=== PATIENT | female | born 1990 | race Caucasian/White ===

== ENCOUNTER 2016-11-29 07:28 | Emergency (ER) | payer BC, OTHER ==
[~2016-11-29] VITALS: Ht 167.6 cm; Wt 86.2 kg
[~2016-11-29 07:28] MED LIST: CITA40TA12 PO; HYDR1TAB10 PO; LORA2TAB PO; METH10TA6 PO; METO50TA2 PO; NORG1TAB34 PO; OXYC-250 PO; PROP40TA PO
[2016-11-29] MEDS ORDERED: ONDANSETRON PF 4 MG/2 ML VIAL. IV ONE (08:15)
[2016-11-29] MEDS ORDERED: CLONIDINE HCL 0.1 MG TABLET PO ONE (08:15)
[2016-11-29 08:24] LABS: CREATININE 0.8 mg/dL (0.6-1.0); POTASSIUM 3.3 mmol/L (3.5-5.1)
[2016-11-29 08:35] LABS: BASO # 0.1 x10^3/uL (0.0-0.2); BASO % 1 % (0-3); EOS % 1 % (0-3); HEMATOCRIT 48.7 % (36.0-47.0); HEMOGLOBIN 16.9 g/dL (12.0-15.5); LYMPH # 1.5 x10^3/uL (1.0-4.8); LYMPH % 16 % (24-48); MEAN CORPUSCULAR HEMOGLOBIN 34 pg (25-35); MEAN CORPUSCULAR HGB CONC 35 g/dL (31-37); MEAN CORPUSCULAR VOLUME 99 fL (79-100); MONO % 5 % (0-9); NEUT % 77 % (31-73); PLATELET COUNT 314 x10^3/uL (140-400); RED BLOOD COUNT 4.93 x10^6/uL (3.50-5.40); WHITE BLOOD COUNT 9.5 x10^3/uL (4.0-11.0)
[2016-11-29 08:46] LABS: BARBITURATES NEG (NEG); BENZODIAZEPINES POS (NEG); CANNABINOIDS POS (NEG); COCAINE NEG (NEG); METHADONE NEG (NEG); OPIATES POS (NEG); PHENCYCLIDINE NEG (NEG)
[2016-11-29 08:48] LABS: ETHANOL, URINE POS (NEG)
--- NOTE | 2016-11-29 09:04 | PHYS DOC ---
Past Medical History Past Medical History: Anxiety, Depression, Hyperthyroid, Other Additional Past Medical Histor: ALCOHOL ABUSE, SUBSTANCE ABUSE Past Surgical History: Other Additional Past Surgical Histo: ATTEMPTED THYROID REMOVAL Alcohol Use: Heavy Drug Use: Benzodiazepine, Cocaine, Marijuana, Opiates Adult General Chief Complaint Chief Complaint: SUBSTANCE ABUSE HPI HPI Patient is a 26 year old female who presents with who mother seeking drug detox placement. She has recently been decreasing her narcotic and benzodiazepine intake to try to wean herself. She has also been trying to quit multiple street drugs. She has discussed this with her psychiatrist as well. She states this has created anxiety, nausea and vomiting, and extreme general discomfort. She denies bloody or bilious emesis, dysuria, diarrhea, headache, vision changes, numbness, tingling, weakness, chest pain, dyspnea. Review of Systems Review of Systems Constitutional: Denies fever or chills [] Eyes: Denies change in visual acuity, redness, or eye pain [] HENT: Denies nasal congestion or sore throat [] Respiratory: Denies cough or shortness of breath [] Cardiovascular: No additional information not addressed in HPI [] GI: Denies bloody stools or diarrhea [] : Denies dysuria or hematuria [] Musculoskeletal: Denies back pain or joint pain [] Integument: Denies rash or skin lesions [] Neurologic: Denies headache, focal weakness or sensory changes [] Endocrine: Denies polyuria or polydipsia [] Current Medications Current Medications Current Medications Medications (Trade) Dose Ordered Sig/Brad Start Time Stop Time Status Last Admin Dose Admin Clonidine HCl (Catapres) 0.1 mg 1X ONCE 11/29/16 08:15 11/29/16 08:16 DC 11/29/16 08:24 0.1 MG Ondansetron HCl (Zofran) 4 mg 1X ONCE 11/29/16 08:15 11/29/16 08:16 DC 11/29/16 08:24 4 MG Allergies Allergies Allergies Coded Allergies Type Severity Reaction Last Updated Verified No Known Drug Allergies 12/07/15 No Physical Exam Physical Exam Constitutional: Well developed, well nourished, no acute distress, non-toxic appearance. [] HENT: Normocephalic, atraumatic, bilateral external ears normal, oropharynx moist, no oral exudates, nose normal. [] Eyes: PERRLA, EOMI. [] Neck: Normal range of motion, supple. [] Cardiovascular:Heart rate regular rhythm [] Lungs & Thorax: Bilateral breath sounds clear to auscultation [] Abdomen: Bowel sounds normal, soft, no tenderness. [] Skin: Warm, dry, no erythema, no rash. [] Back: Normal range of motion. [] Extremities: No tenderness, ROM intact, no edema. [] Neurologic: Alert and oriented X 3, normal motor function, normal sensory function, no focal deficits noted, cranial nerves II through XII intact. [] Psychologic: Affect tearful, judgement normal, mood normal. [] Current Patient Data Vital Signs Vital Signs Date Time Temp Pulse Resp B/P Pulse Ox O2 Delivery O2 Flow Rate FiO2 11/29/16 08:24 85 138/89 11/29/16 07:50 97.4 22 100 Room Air 97.4 Lab Values Laboratory Tests Test 11/29/16 07:09 11/29/16 07:55 11/29/16 08:08 POC Urine HCG, Qualitative Hcg negative (Negative) Urine Opiates Screen Pos (NEG) Urine Methadone Screen Neg (NEG) Urine Barbiturates Neg (NEG) Urine Phencyclidine Screen Neg (NEG) Urine Amphetamine/Methamphetamine Pos (NEG) Urine Benzodiazepines Screen Pos (NEG) Urine Cocaine Screen Neg (NEG) Urine Cannabinoids Screen Pos (NEG) Urine Ethyl Alcohol Pos (NEG) White Blood Count 9.5x10^3/uL (4.0-11.0) Red Blood Count 4.93x10^6/uL (3.50-5.40) Hemoglobin 16.9g/dL (12.0-15.5) H Hematocrit 48.7% (36.0-47.0) H Mean Corpuscular Volume 99fL (79-100) Mean Corpuscular Hemoglobin 34pg (25-35) Mean Corpuscular Hemoglobin Concent 35g/dL (31-37) Red Cell Distribution Width 15.0% (11.5-14.5) H Platelet Count 314x10^3/uL (140-400) Neutrophils (%) (Auto) 77% (31-73) H Lymphocytes (%) (Auto) 16% (24-48) L Monocytes (%) (Auto) 5% (0-9) Eosinophils (%) (Auto) 1% (0-3) Basophils (%) (Auto) 1% (0-3) Neutrophils # (Auto) 7.4x10^3uL (1.8-7.7) Lymphocytes # (Auto) 1.5x10^3/uL (1.0-4.8) Monocytes # (Auto) 0.5x10^3/uL (0.0-1.1) Eosinophils # (Auto) 0.1x10^3/uL (0.0-0.7) Basophils # (Auto) 0.1x10^3/uL (0.0-0.2) Sodium Level 138mmol/L (136-145) Potassium Level 3.3mmol/L (3.5-5.1) L Chloride Level 100mmol/L (98-107) Carbon Dioxide Level 16mmol/L (21-32) L Anion Gap 22 (6-14) H Blood Urea Nitrogen 11mg/dL (7-20) Creatinine 0.8mg/dL (0.6-1.0) Estimated GFR (Cockcroft-Gault) 86.0 Glucose Level 78mg/dL (70-99) Calcium Level 10.0mg/dL (8.5-10.1) Ethyl Alcohol Level 15mg/dL (0-10) H Laboratory Tests 11/29/16 08:08 Laboratory Tests 11/29/16 08:08 Course & Med Decision Making Course & Med Decision Making Pertinent Labs and Imaging studies reviewed. (See chart for details) Laboratory evaluation reflects polysubstance abuse, but is otherwise largely unremarkable. She is feeling somewhat better after medications here. PAT tour sales representative saw her to assist detox placement. She was accepted to an inpatient detox facility, however, she changed her mind and does not want inpatient treatment at this time. Resources were provided by PAT tour sales representative. Will give clonidine to help withdrawal symptoms. Return precautions given. She understands and agrees with plan. Dragon Disclaimer Dragon Disclaimer This electronic medical record was generated, in whole or in part, using a voice recognition dictation system. Departure Departure Impression: Primary Impression: Multiple substance abuse Additional Impression: Nausea and vomiting Disposition: HOME, SELF-CARE (to Drug Rehab) Condition: STABLE Referrals: UNKNOWN PCP NAME (PCP) Patient Instructions: Narcotic Withdrawal-Brief Additional Instructions: Take clonidine as prescribed to help with withdrawal symptoms. Follow up with substance abuse facility and your psychiatrist. Return for any concerns. Scripts Clonidine Hcl 0.1 Mg Tablet0.1 Mg PO BID #6 TAB Prov:Nydia CISNEROS MD 11/29/16 Problem Qualifiers Additional Impression: Nausea and vomiting Vomiting type: unspecified Vomiting Intractability: non-intractable Qualified Code: R11.2 - Nausea with vomiting, unspecified Nydia CISNEROS MD Nov 29, 2016 09:04
[2016-11-29] MEDS ORDERED: CLON0.1T PO (10:28)
[2016-11-29 10:30] VITALS: BP 111/75
== END 2016-11-29 10:42 | disposition home or self-care (01) ==
LOC: ER 07:28
DX: F19.10 Other psychoactive substance abuse, uncomplicated (principal); R11.2 Nausea with vomiting, unspecified; F41.9 Anxiety disorder, unspecified; F32.9 Major depressive disorder, single episode, unspecified; E05.90 Thyrotoxicosis, unspecified without thyrotoxic crisis or storm; F13.10 Sedative, hypnotic or anxiolytic abuse, uncomplicated; F14.10 Cocaine abuse, uncomplicated; F12.10 Cannabis abuse, uncomplicated; F11.10 Opioid abuse, uncomplicated
CPT/HCPCS: 36415; 80048; 80305; 80320; 81025; 85027; 96374; 99284; J2405; G0480; G0481

== ENCOUNTER 2017-02-26 10:11 | Emergency (ER) | payer BC ==
[~2017-02-26] VITALS: Ht 167.6 cm; Wt 74.8 kg
[~2017-02-26 10:11] MED LIST changes: +CLON0.1T PO; +METH-364 PO; -METH10TA6 PO; -OXYC-250 PO; +OXYC-328 PO
[2017-02-26 10:26] VITALS: BP 132/84
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
[2017-02-26 10:59] LABS: BILIRUBIN,URINE NEGATIVE (NEG); GLUCOSE,URINE NEGATIVE (NEG); NITRITE,URINE NEGATIVE (NEG); PROTEIN,URINE 100 mg/dL (NEG-TRACE); UROBILINOGEN,URINE 0.2 mg/dL (0.2 mg/dL)
[2017-02-26] MEDS ORDERED: CONTRAST GIVEN MC PRN (11:00)
[2017-02-26] MEDS ORDERED: IOHEXOL 300 MG/ML 75 ML VIAL IV ONE (11:00)
[2017-02-26 11:22] LABS: BACTERIA,URINE FEW /HPF (0-FEW); RBC,URINE 0 /HPF (0-2); SQUAMOUS EPITHELIAL CELL,UR MOD /LPF
[2017-02-26] MEDS ORDERED: ACETAMINOPHEN 325 MG TABLET. PO ONE (11:30)
--- NOTE | 2017-02-26 12:08 | RAD ---
Indication fall, pain. AP and lateral views of the right forearm were obtained. No bony abnormality is seen
--- NOTE | 2017-02-26 12:11 | RAD ---
Indication fall. Pain. AP and lateral views of both femurs were obtained. No acute or significant bony finding is seen involving either femur
--- NOTE | 2017-02-26 12:17 | RAD ---
Indication fall. Pain. AP and lateral views of both lower legs were obtained. Views of the right tibia and fibula appear normal. No bony abnormality is seen. Similarly views of the left tibia and fibula also appear normal. IMPRESSION: Normal plain films of both lower legs
--- NOTE | 2017-02-26 12:21 | RAD ---
Indication fall, pain. An AP view of the chest was obtained as well as films targeted to the left ribs. The heart, pulmonary vessels and mediastinum appear normal. The lungs are clear. There is no pleural fluid or pneumothorax. No acute finding is apparent. Films targeted to left ribs appear unremarkable. IMPRESSION: No acute finding in the chest. Normal plain films left ribs
--- NOTE | 2017-02-26 12:27 | RAD ---
INDICATION: Status post fall COMPARISON: None. TECHNIQUE: Axial CT images were obtained through the abdomen and pelvis with intravenous contrast. Coronal reformations were processed. FINDINGS: Abdomen: Chest Base: Partially imaged without gross abnormality. Vessels: No abdominal aortic aneurysm. Liver/Biliary: Low-attenuation throughout liver. Low attenuation adjacent to falciform ligament, commonly from focal fat. Pancreas: No gross abnormality. Spleen: Normal. Kidneys/Adrenal: No hydronephrosis. GI: No free air. No bowel dilation to suggest obstruction. Appendix measures up to about 8 mm but a large portion of this measurement is from intraluminal content. No definite adjacent inflammation Pelvis: Bladder: Largely decompressed. Degenerative changes the spine including T12 where there is sclerosis adjacent to the endplate with osteophyte formation IMPRESSION: 1. No definite solid organ or vascular injury. 2. Low attenuation of liver. Nonspecific but can be seen with fatty infiltration. PQRS Compliance Statement: One or more of the following individualized dose reduction techniques were utilized for this examination: 1. Automated exposure control 2. Adjustment of the mA and/or kV according to patient size 3. Use of iterative reconstruction technique
--- NOTE | 2017-02-26 12:31 | RAD ---
Indication fall, injury and pain. AP oblique and lateral views of the left elbow were obtained. There is no significant joint fluid. A bony abnormality is not seen
--- NOTE | 2017-02-26 12:31 | RAD ---
Indication fall, injury, pain. Closed head injury. Facial pain. Suspect fracture. The head and maxillofacial structures were evaluated. Images of the facial bones were reformatted in the coronal and sagittal planes. No prior imaging of the head is available. CT head: Findings. No acute calvarial finding is seen. The visualized paranasal sinuses appear unremarkable. No subdural or epidural hematoma is seen. There is no mass or midline shift. No hemorrhage is seen. No acute finding is apparent. Maxillofacial CT: Findings. No significant soft tissue finding is seen. There is some slight mucosal thickening in the right maxillary sinus. Mild sinusitis is not excluded. The mandible appears unremarkable. Zygomatic arches appear normal. The nasal bone appears unremarkable. The medial and lateral wright of the orbits appear normal and no maxillary fracture is seen. IMPRESSION: Negative CT facial bones for fracture. No acute intracranial finding seen. Mild mucosal thickening in the right maxillary sinus. Mild sinusitis is not excluded PQRS Compliance Statement: One or more of the following individualized dose reduction techniques were utilized for this examination: 1. Automated exposure control 2. Adjustment of the mA and/or kV according to patient size 3. Use of iterative reconstruction technique
== END 2017-02-26 13:07 | disposition home or self-care (01) ==
LOC: ER 10:11
DX: S09.8XXA Other specified injuries of head, initial encounter (principal); S00.11XA Contusion of right eyelid and periocular area, initial encounter; S50.11XA Contusion of right forearm, initial encounter; S30.1XXA Contusion of abdominal wall, initial encounter; S80.12XA Contusion of left lower leg, initial encounter; S80.11XA Contusion of right lower leg, initial encounter; S50.312A Abrasion of left elbow, initial encounter; E03.9 Hypothyroidism, unspecified; F12.10 Cannabis abuse, uncomplicated; F11.10 Opioid abuse, uncomplicated; F14.10 Cocaine abuse, uncomplicated; F19.10 Other psychoactive substance abuse, uncomplicated; F10.10 Alcohol abuse, uncomplicated; W18.09XA Striking against other object with subsequent fall, initial encounter; Y93.89 Activity, other specified; Y99.8 Other external cause status; Y92.89 Other specified places as the place of occurrence of the external cause
CPT/HCPCS: 70450; 70486; 71101; 73080; 73090; 73590; 74177; 80047; 81001; 81025; 87086; 99285; Q9967

== ENCOUNTER 2017-03-03 07:34 | Emergency (ER) | payer BC ==
[~2017-03-03] VITALS: Ht 167.6 cm; Wt 74.8 kg
[2017-03-03] MEDS ORDERED: IV NORMAL SALINE 1000ML BAG 1,000 ML IV SCH (08:05)
[2017-03-03] MEDS ORDERED: ONDANSETRON PF 4 MG/2 ML VIAL. IV ONE (08:15)
[2017-03-03] MEDS ORDERED: ACETAMINOPHEN 500 MG TABLET PO ONE (08:15)
[2017-03-03 08:32] LABS: BASO % 0 % (0-3); EOS % 1 % (0-3); HEMATOCRIT 44.4 % (36.0-47.0); HEMOGLOBIN 15.4 g/dL (12.0-15.5); LYMPH # 0.7 x10^3/uL (1.0-4.8); LYMPH % 9 % (24-48); MEAN CORPUSCULAR HEMOGLOBIN 36 pg (25-35); MEAN CORPUSCULAR HGB CONC 35 g/dL (31-37); MEAN CORPUSCULAR VOLUME 105 fL (79-100); MONO % 6 % (0-9); NEUT % 85 % (31-73); PLATELET COUNT 174 x10^3/uL (140-400); RED BLOOD COUNT 4.24 x10^6/uL (3.50-5.40); RED CELL DISTRIBUTION WIDTH 15.1 % (11.5-14.5); WHITE BLOOD COUNT 8.6 x10^3/uL (4.0-11.0)
[2017-03-03 08:38] LABS: CALCIUM 8.4 mg/dL (8.5-10.1); CREATININE 0.7 mg/dL (0.6-1.0); GFR 100.4; POTASSIUM 3.4 mmol/L (3.5-5.1)
[2017-03-03] MEDS ORDERED: IOHEXOL 300 MG/ML 75 ML VIAL IV ONE (08:45)
[2017-03-03] MEDS ORDERED: DIPHTH,PERTUSS(ACELL),TET TOX 0.5 ML DISP.SYRIN. VAX IM ONE (08:45)
--- NOTE | 2017-03-03 08:47 | ED.ADGEN ---
Past Medical History Past Medical History: Anxiety, Depression, Hyperthyroid Additional Past Medical Histor: ALCOHOL ABUSE, SUBSTANCE ABUSE Past Surgical History: , Other Additional Past Surgical Histo: THYROID ABLASION Alcohol Use: Occasionally Drug Use: Marijuana Adult General Chief Complaint Chief Complaint: DENTAL PROBLEM HPI HPI Patient is a 26 year old woman, history of alcohol abuse, substance abuse, hypertension, tobacco abuse, thyroid ablation on Synthroid, who presents to the emergency department with a complaint of worsening dental pain with development of fever. Patient was seen by Dr. Braun an oral surgeon on Saturday, that time she had tooth #11 extracted, she states there was an existing dental infection at the time. Patient discharged home on antibiotics, pain medication. She states that initially the pain was consistent with previous placental procedures, however yesterday the pain became progressively worse. She states that she noted increased swelling and bruising of her left cheek. Patient states that she did attempt to contact the dental office but it was closed. She states she has been taking antibiotics as directed. Today she noted a fever at home, noted to have an oral temperature 100.2 in the emergency department, mildly tachycardic, complaining of severe pain. Denies any recent travel, any ingestions, states she is having bloody drainage from the area. States pain is severe. Patient is uncertain about her tetanus status. Review of Systems Review of Systems Constitutional: Denies fever or chills. [] Eyes: Denies change in visual acuity. [] HENT: Denies nasal congestion or sore throat. Left upper jaw pain radiating throughout the left side of the face. Respiratory: Denies cough or shortness of breath. [] Cardiovascular: Denies chest pain or edema. [] GI: Denies abdominal pain, nausea, vomiting, bloody stools or diarrhea. [] : Denies dysuria. [] Musculoskeletal: Denies back pain or joint pain. [] Integument: Denies rash. [] Neurologic: Denies headache, focal weakness or sensory changes. [] Endocrine: Denies polyuria or polydipsia. [] Lymphatic: Denies swollen glands. [] Psychiatric: Denies depression or anxiety. [] Current Medications Current Medications Current Medications Medications (Trade) Dose Ordered Sig/Brad Start Time Stop Time Status Last Admin Dose Admin Acetaminophen (Tylenol) 1,000 mg 1X ONCE 03/03/17 08:15 03/03/17 08:16 DC 03/03/17 08:55 1,000 MG Clindamycin HCl (Cleocin) 300 mg 1X ONCE 03/03/17 10:45 03/03/17 10:46 DC 03/03/17 10:45 300 MG Diphtheria/ Tetanus/Acell Pertussis (Boostrix) 0.5 ml ONCE ONCE 03/03/17 08:45 03/03/17 08:46 DC 03/03/17 09:14 0.5 ML Fentanyl Citrate (Fentanyl 2ml Vial) 25 mcg PRN Q15MIN PRN 03/03/17 08:15 03/03/17 10:51 DC 03/03/17 10:34 25 MCG Iohexol (Omnipaque 300 Mg/ml) 70 ml 1X ONCE 03/03/17 08:45 03/03/17 08:47 DC 03/03/17 09:16 70 ML Naproxen (Naprosyn) 500 mg 1X ONCE 03/03/17 10:45 03/03/17 10:46 DC 03/03/17 10:45 500 MG Ondansetron HCl (Zofran) 4 mg 1X ONCE 03/03/17 08:15 03/03/17 08:16 DC 03/03/17 08:53 4 MG Sodium Chloride 1,000 ml @ 1,000 mls/hr Q1H 03/03/17 08:05 03/03/17 09:04 DC 03/03/17 08:51 1,000 MLS/HR Allergies Allergies Allergies Coded Allergies Type Severity Reaction Last Updated Verified No Known Drug Allergies 12/07/15 No Physical Exam Physical Exam Constitutional: Well developed, well nourished, no acute distress, non-toxic appearance. [] HENT: Normocephalic, patient with bruising and swelling noted along the left upper cheek and tenderness in the maxillary sinus region, no eye involvement, no temporal tenderness, no ear involvement, patient noted to have purulent drainage, with blood and clot noted at the socket of tooth 11, with swelling along the gumline, and tenderness throughout the entire region, there is no tongue or other mucosal involvement, no brawny edema, oropharynx is clear and unremarkable in appearance, bilateral external ears normal, oropharynx moist, no oral exudates, nose normal. [] Eyes: PERRLA, EOMI, conjunctiva normal, no discharge. [] Neck: Normal range of motion, no tenderness, supple, no stridor. [] Cardiovascular:Heart rate regular rhythm, no murmur, S1, S2, rubs or gallops. [] Lungs & Thorax: Bilateral breath sounds clear to auscultation, no wheezing, rhonchi, rales. No chest wall crepitus or tenderness. [] Abdomen: Bowel sounds normal, soft, no tenderness, no masses, no pulsatile masses. [] Skin: Warm, dry, no erythema, no rash. [] Back: No tenderness, no CVA tenderness. [] Extremities: No tenderness, no cyanosis, no clubbing, ROM intact, no edema. [] Neurologic: Alert and oriented X 3, normal motor function, normal sensory function, no focal deficits noted. [] Psychologic: Affect normal, judgement normal, mood normal. [] Current Patient Data Vital Signs Vital Signs Date Time Temp Pulse Resp B/P (MAP) Pulse Ox O2 Delivery O2 Flow Rate FiO2 03/03/17 10:34 20 03/03/17 10:00 90 106/66 (79) 97 Room Air 03/03/17 07:50 100.2 100.2 Lab Values Laboratory Tests Test 03/03/17 07:34 03/03/17 08:10 POC Urine HCG, Qualitative Hcg negative (Negative) White Blood Count 8.6 x10^3/uL (4.0-11.0) Red Blood Count 4.24 x10^6/uL (3.50-5.40) Hemoglobin 15.4 g/dL (12.0-15.5) Hematocrit 44.4 % (36.0-47.0) Mean Corpuscular Volume 105 fL (79-100) H Mean Corpuscular Hemoglobin 36 pg (25-35) H Mean Corpuscular Hemoglobin Concent 35 g/dL (31-37) Red Cell Distribution Width 15.1 % (11.5-14.5) H Platelet Count 174 x10^3/uL (140-400) Neutrophils (%) (Auto) 85 % (31-73) H Lymphocytes (%) (Auto) 9 % (24-48) L Monocytes (%) (Auto) 6 % (0-9) Eosinophils (%) (Auto) 1 % (0-3) Basophils (%) (Auto) 0 % (0-3) Neutrophils # (Auto) 7.3 x10^3uL (1.8-7.7) Lymphocytes # (Auto) 0.7 x10^3/uL (1.0-4.8) L Monocytes # (Auto) 0.5 x10^3/uL (0.0-1.1) Eosinophils # (Auto) 0.0 x10^3/uL (0.0-0.7) Basophils # (Auto) 0.0 x10^3/uL (0.0-0.2) Sodium Level 137 mmol/L (136-145) Potassium Level 3.4 mmol/L (3.5-5.1) L Chloride Level 98 mmol/L (98-107) Carbon Dioxide Level 24 mmol/L (21-32) Anion Gap 15 (6-14) H Blood Urea Nitrogen 11 mg/dL (7-20) Creatinine 0.7 mg/dL (0.6-1.0) Estimated GFR (Cockcroft-Gault) 100.4 Glucose Level 86 mg/dL (70-99) Calcium Level 8.4 mg/dL (8.5-10.1) L Laboratory Tests 03/03/17 08:10 Laboratory Tests 03/03/17 08:10 EKG EKG Not indicated. Radiology/Procedures Radiology/Procedures [][facility] [address] [place] [address] IMAGING REPORT Signed PATIENT: JAVON LINARES ACCOUNT: [id number] : 1990 LOCATION: ER AGE: 26 SEX: F EXAM STATUS: REG ER ORD. PHYSICIAN: AUGUST HENDRICKS DO REASON: Facial pain/swelling/fever after dental extraction PROCEDURE: CT MAXILLOFACIAL W/CONTRAST Indication facial pain and swelling. Fever after dental extraction on Saturday. Axial images through the neck were obtained and reformatted in the coronal and sagittal planes. Approximately 70 cc of Omnipaque 300 was administered. The visualized brain appears unremarkable. There is partial opacification of right ethmoid air cells and the right maxillary sinus suggesting possible sinusitis. A significant bony finding is not seen. There is some minimal soft tissue swelling of the left cheek. Significant adenopathy in the neck is not seen. No discrete abscess is seen. IMPRESSION: Minimal soft tissue swelling. No abscess seen. Suspect sinusitis PQRS Compliance Statement: One or more of the following individualized dose reduction techniques were utilized for this examination: 1. Automated exposure control 2. Adjustment of the mA and/or kV according to patient size 3. Use of iterative reconstruction technique DICTATED and SIGNED BY: SHIRIN LE MD DATE: 03/03/17930 CC: AUGUST HENDRICKS DO; UNKNOWN PCP NAME ~ Course & Med Decision Making Course & Med Decision Making Pertinent Labs and Imaging studies reviewed. (See chart for details) Patient well-appearing, temperature of 100.2 in the ED as stated, heart rate is now in the 80s, she is receiving IV fluids, has received pain medication in the ED. On examination, I cannot identify a palpable abscess, however due to swelling and complaints with preceding infection, will proceed with imaging of the maxilla facial rule out any large abscess or other concerning findings. CT of the next the facial does not rule evidence of abscess, patient noted to have mild right-sided sinusitis, which is not part of the complaints of brought here today. Her laboratory studies are unremarkable. I did discuss findings as above with Dr. Cha of oral surgery, after we are unable to reach the patient's dentist, a message was left at the provided number, there was no return call during the patient's ED visit. As patient is well-appearing, with no evidence of spreading disease or concerning findings on CT, he recommends changing the patient's antibiotic to clindamycin 3 mg 4 times daily, and instruct the patient to follow-up with her oral surgeon tomorrow, states that the patient is unable to follow up for any reason, that his office will be available tomorrow morning. Patient is resting comfortably at this time, given her first dose of clindamycin in the ED, dosage naproxen, patient was also given prescription for clindamycin, naproxen, and a total of #6 Percocet 5/325 mg. Patient tolerated medication without issue in the ED, was given clear and detailed return instructions with which she voiced understanding, discharged home with plan as above. Dragon Disclaimer Dragon Disclaimer This electronic medical record was generated, in whole or in part, using a voice recognition dictation system. Departure Impression: Primary Impression: Pain, dental Disposition: HOME, SELF-CARE Condition: IMPROVED Scripts Oxycodone/Apap 5-325 (PERCOCET 5-325 MG TABLET) 1 Each Tablet 1 TAB PO QID Y for PAIN, #6 TAB Prov: AUGUST HENDRICKS DO 03/03/17 Clindamycin Hcl (CLINDAMYCIN HCL) 150 Mg Capsule 2 CAP PO QID for 10 Days, #80 CAP Prov: AUGUST HENDRICKS DO 03/03/17 Naproxen (NAPROSYN) 500 Mg Tablet 500 MG PO BID Y for PAIN, #10 TAB Prov: AUGUST HENDRICKS DO 03/03/17 AUGUST HENDRICKS DO Mar 03, 2017 08:47
[2017-03-03] MEDS: fentaNYL PF VIAL 100 MCG/2 ML VIAL IV PRN ×3 (08:55→10:34)
--- NOTE | 2017-03-03 09:42 | RAD ---
Indication facial pain and swelling. Fever after dental extraction on Saturday. Axial images through the neck were obtained and reformatted in the coronal and sagittal planes. Approximately 70 cc of Omnipaque 300 was administered. The visualized brain appears unremarkable. There is partial opacification of right ethmoid air cells and the right maxillary sinus suggesting possible sinusitis. A significant bony finding is not seen. There is some minimal soft tissue swelling of the left cheek. Significant adenopathy in the neck is not seen. No discrete abscess is seen. IMPRESSION: Minimal soft tissue swelling. No abscess seen. Suspect sinusitis PQRS Compliance Statement: One or more of the following individualized dose reduction techniques were utilized for this examination: 1. Automated exposure control 2. Adjustment of the mA and/or kV according to patient size 3. Use of iterative reconstruction technique
[2017-03-03 10:00] VITALS: BP 106/66
[2017-03-03] MEDS ORDERED: CLIN150C14 PO (10:36)
[2017-03-03] MEDS ORDERED: OXYC-323 PO (10:36)
[2017-03-03] MEDS ORDERED: NAPR500T PO (10:36)
[2017-03-03] MEDS ORDERED: NAPROXEN 500 MG TABLET PO ONE (10:45)
[2017-03-03] MEDS ORDERED: CLINDAMYCIN HCL 150 MG CAPSULE. PO ONE (10:45)
== END 2017-03-03 10:50 | disposition home or self-care (01) ==
LOC: ER 07:34
DX: K08.89 Other specified disorders of teeth and supporting structures (principal); R50.9 Fever, unspecified; E05.90 Thyrotoxicosis, unspecified without thyrotoxic crisis or storm; F12.10 Cannabis abuse, uncomplicated
CPT/HCPCS: 36415; 70487; 80048; 81025; 85027; 90471; 90715; 96361; 96374; 96375; 96376; 99285; J2405; J3010; J7030; Q9967

== ENCOUNTER 2017-07-24 19:56 | Inpatient (IN) | payer BC, OTHER ==
[~2017-07-24] VITALS: Ht 177.8 cm; Wt 78.9 kg
[~2017-07-24 19:56] MED LIST changes: +CLIN150C14 PO; -METO50TA2 PO; +METO50TA6 PO; +NAPR-683 PO; +OXYC-323 PO
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
[2017-07-24] MEDS ORDERED: ONDANSETRON PF 4 MG/2 ML VIAL. IV ONE (20:45)
[2017-07-24] MEDS ORDERED: MECLIZINE HCL 12.5 MG TABLET. PO ONE (20:45)
[2017-07-24] MEDS ORDERED: IV NORMAL SALINE 1000ML BAG 1,000 ML IV ONE (20:45)
[2017-07-24 20:49] LABS: BASO # 0.1 x10^3/uL (0.0-0.2); BASO % 1 % (0-3); EOS % 2 % (0-3); HEMATOCRIT 43.7 % (36.0-47.0); HEMOGLOBIN 14.7 g/dL (12.0-15.5); LYMPH # 1.5 x10^3/uL (1.0-4.8); LYMPH % 26 % (24-48); MEAN CORPUSCULAR HEMOGLOBIN 34 pg (25-35); MEAN CORPUSCULAR HGB CONC 34 g/dL (31-37); MEAN CORPUSCULAR VOLUME 102 fL (79-100); MONO % 9 % (0-9); NEUT % 62 % (31-73); PLATELET COUNT 163 x10^3/uL (140-400); RED BLOOD COUNT 4.29 x10^6/uL (3.50-5.40); RED CELL DISTRIBUTION WIDTH 14.2 % (11.5-14.5); WHITE BLOOD COUNT 5.5 x10^3/uL (4.0-11.0)
[2017-07-24 20:50] LABS: BILIRUBIN,URINE NEGATIVE (NEG); GLUCOSE,URINE NEGATIVE (NEG); NITRITE,URINE POSITIVE (NEG); PROTEIN,URINE 30 mg/dL (NEG-TRACE)
[2017-07-24 20:55] LABS: BACTERIA,URINE MANY /HPF (0-FEW); RBC,URINE 0 /HPF (0-2)
[2017-07-24 20:56] LABS: BARBITURATES NEG (NEG); BENZODIAZEPINES NEG (NEG); CANNABINOIDS POS (NEG); COCAINE NEG (NEG); METHADONE NEG (NEG); OPIATES NEG (NEG); PHENCYCLIDINE NEG (NEG); SQUAMOUS EPITHELIAL CELL,UR MANY /LPF
--- NOTE | 2017-07-24 21:02 | EKG ---
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
--- NOTE | 2017-07-24 21:03 | RAD ---
CT Head W/O Contrast: History: dizzy, light headed, prior sent Comparison: February 26, 2017 Axial images were obtained without contrast. The claire and white matter appears normal and symmetrical for the patients age. There is no mass effect, extraaxial fluid collections or hydrocephalus. There is no gross bleed. There is no focal loss of claire-white matter distinction to suggest acute ischemia, i.e. stroke. Impression: No acute findings. PQRS Compliance Statement: One or more of the following individualized dose reduction techniques were utilized for this examination: 1. Automated exposure control 2. Adjustment of the mA and/or kV according to patient size 3. Use of iterative reconstruction technique Electronically signed by: Byron Olvera III, MD (07/24/2017 9:01 PM) [facility]
[2017-07-24 21:04] LABS: CALCIUM 8.5 mg/dL (8.5-10.1); CREATININE 0.6 mg/dL (0.6-1.0); POTASSIUM 4.7 mmol/L (3.5-5.1)
[2017-07-24 21:11] LABS: ALBUMIN 3.7 g/dL (3.4-5.0); ALBUMIN/GLOBULIN RATIO 0.8 (1.0-1.7); TOTAL BILIRUBIN 0.8 mg/dL (0.2-1.0); TOTAL PROTEIN 8.1 g/dL (6.4-8.2)
[2017-07-24] MEDS ORDERED: ONDANSETRON PF 4 MG/2 ML VIAL. IV PRN (23:15)
[2017-07-24] MEDS ORDERED: fentaNYL PF VIAL 100 MCG/2 ML VIAL IV PRN (23:15)
[2017-07-24] MEDS ORDERED: fentaNYL PF VIAL 100 MCG/2 ML VIAL IV ONE (23:15)
[2017-07-25] VITALS (16 sets, daily range): BP systolic 105–140; BP diastolic 62–87
[2017-07-25 06:28] LABS: BASO % 0 % (0-3); EOS % 0 % (0-3); HEMATOCRIT 41.7 % (36.0-47.0); HEMOGLOBIN 14.1 g/dL (12.0-15.5); LYMPH % 11 % (24-48); MEAN CORPUSCULAR HEMOGLOBIN 34 pg (25-35); MEAN CORPUSCULAR HGB CONC 34 g/dL (31-37); MEAN CORPUSCULAR VOLUME 102 fL (79-100); MONO % 7 % (0-9); NEUT % 81 % (31-73); PLATELET COUNT 157 x10^3/uL (140-400); RED BLOOD COUNT 4.11 x10^6/uL (3.50-5.40); RED CELL DISTRIBUTION WIDTH 14.7 % (11.5-14.5); WHITE BLOOD COUNT 8.6 x10^3/uL (4.0-11.0)
[2017-07-25 06:48] LABS: CALCIUM 8.6 mg/dL (8.5-10.1); CREATININE 0.6 mg/dL (0.6-1.0); POTASSIUM 3.7 mmol/L (3.5-5.1)
--- NOTE | 2017-07-25 07:29 | RAD ---
Indication: Syncope today with dizziness. Technique: Upright portable chest radiograph was obtained. Comparison is from February 26, 2017. Findings: The lungs are clear. The cardiopulmonary silhouette is within normal limits. The bony structures are intact. Leads overlie the patient. Patient was shielded. Impression: No active pulmonary disease.
[2017-07-25] MEDS ORDERED: chlordiazePOXIDE HCL 25 MG CAPSULE PO PRN ×2 (08:45→11:45)
[2017-07-25] MEDS ORDERED: ONDANSETRON PF 4 MG/2 ML VIAL. IV PRN (08:45)
[2017-07-25] MEDS ORDERED: oxyCODONE/APAP 5/325 1 TAB TABLET PO PRN (08:45)
[2017-07-25] MEDS ORDERED: IBUPROFEN 600 MG TABLET. PO PRN (08:45)
[2017-07-25] MEDS ORDERED: NICOTINE 21MG PATCH. TD PRN (08:45)
[2017-07-25] MEDS ORDERED: ACETAMINOPHEN 500 MG TABLET PO PRN (08:45)
[2017-07-25] MEDS ORDERED: NORGESTIMATE ETHINYL ESTRADIOL PO SCH (09:00)
[2017-07-25] MEDS: HYDROcodon/IBUPROFEN 7.5/200MG 1 TAB TABLET PO SCH ×4 (09:07→20:12)
[2017-07-25] MEDS: METOPROLOL TART IMMED RELEASE 50 MG TABLET. PO SCH ×2 (09:48→20:13)
[2017-07-25] MEDS: methIMAzole 10 MG TABLET PO SCH ×3 (09:48→20:12)
[2017-07-25] MEDS: cloNIDine HCL 0.1 MG TABLET PO SCH ×2 (09:48→20:13)
--- NOTE | 2017-07-25 11:50 | PDOC1 ---
History and Physical Date of Admission Date of Admission DATE: 07/25/17 TIME: 11:44 Identification/Chief Complaint Chief Complaint sz, alcohol use Problems: Source Source: Caregiver, Chart review, Patient History of Present Illness History of Present Illness 27 y.o [place] female, hx heavy etoh, was admitted thru ER intoxicated, the reports of she that she had a seizure-like activity or episode at home with her boyfriend with foaming of the mouth but no GTC. She was about to be discharged from the emergency room but then she seized again hence was subsequently admitted to the ICU. No Seizure-like activity overnight, labs only remarkable for sodium of 134. The rest is okay. Patient ate breakfast pretty well. Neurology has been consulted, but has not yet seen. Patient is on antidepressant medications hormone replacement at home and maybe some antihypertensives. Past Medical History Cardiovascular: HTN Past Surgical History Past Surgical History: No pertinent history Family History Family History: Hypertension Social History Smoke: <1 pack per day ALCOHOL: heavy Drugs: None Current Problem List Problem List Problems Medical Problems: (1) Alcohol withdrawal seizure Status: Acute (2) Syncope Status: Acute (3) Transaminitis Status: Acute Problems: Current Medications Current Medications Current Medications Sodium Chloride 1,000 ml @ 1,000 mls/hr 1X ONCE IV Last administered on 07/24 21:18; Start 07/24/17 at 20:45; Stop 07/24/17 at 21:44; Status DC Ondansetron HCl (Zofran) 4 mg 1X ONCE IV Last administered on 07/24/17 21:18 ; Start 07/24/17 at 20:45; Stop 07/24/17 at 20:46; Status DC Meclizine HCl (Antivert) 25 mg 1X ONCE PO Last administered on 07/24/17 21: 18; Start 07/24/17 at 20:45; Stop 07/24/17 at 20:46; Status DC Lorazepam (Ativan) 2 mg STK-MED ONCE .ROUTE ; Start 07/24/17 at 22:42; Stop at 22:43; Status DC Fentanyl Citrate (Fentanyl 2ml Vial) 50 mcg 1X ONCE IV Last administered on 23:38; Start 07/24/17 at 23:15; Stop 07/24/17 at 23:16; Status DC Lorazepam (Ativan) 2 mg PRN Q1HR PRN IV For CIWA 8-14 Last administered on 22:45; Start 07/24/17 at 23:15 Lorazepam (Ativan) 4 mg PRN Q1HR PRN IV For CIWA 15 or greater; Start at 23:15 Ondansetron HCl (Zofran) 4 mg PRN Q8HRS PRN IV NAUSEA/VOMITING Last administered on 07/24/17 23:35; Start 07/24/17 at 23:15; Stop 07/25/17 at 08 :39; Status DC Fentanyl Citrate (Fentanyl 2ml Vial) 50 mcg PRN Q1HR PRN IV PAIN Last administered on 07/25/17 07:32; Start 07/24/17 at 23:15; Stop 07/25/17 at 23 :14 Ondansetron HCl (Zofran) 4 mg PRN Q6HRS PRN IV NAUSEA/VOMITING; Start at 08:45 Acetaminophen (Tylenol) 500 mg PRN Q6HRS PRN PO MILD PAIN / TEMP; Start at 08:45 Ibuprofen (Motrin) 600 mg PRN Q6HRS PRN PO INFLAMMATION; Start 07/25/17 at 08: 45 Chlordiazepoxide (Librium) 25 mg PRN Q6HRS PRN PO ANXIETY / AGITATION; Start 07/25/17 at 08:45 Nicotine (Nicoderm Cq 21mg) 1 patch PRN DAILY PRN TD SMOKING CESSATION; Start 07/25/17 at 08:45 Clonidine HCl (Catapres) 0.1 mg BID PO Last administered on 07/25/17 09:48; Start 07/25/17 at 09:00 Hydrocodone Bitartrate/ Ibuprofen (Vicoprofen 7.5-200) 1 tab QID PO Last administered on 07/25/17 09:07; Start 07/25/17 at 09:00 Methimazole (Tapazole) 10 mg TID PO Last administered on 07/25/17 09:48; Start 07/25/17 at 09:00 Metoprolol Tartrate (Lopressor) 50 mg BID PO Last administered on 07/25/17 09 :48; Start 07/25/17 at 09:00 Oxycodone/ Acetaminophen (Percocet 5/325) 1 tab PRN QID PRN PO PAIN; Start at 08:45 Citalopram Hydrobromide (CeleXA) 20 mg DAILY PO ; Start 07/26/17 at 09:00 Lorazepam (Ativan) 2 mg Q8HRS PRN PO ANXIETY / AGITATION; Start 07/25/17 at 09 :15 Non-Formulary Medication 1 tab DAILY PO ; Start 07/25/17 at 09:00; Status UNV Active Scripts Active Percocet 5-325 Mg Tablet (Oxycodone/Acetaminophen) 1 Each Tablet 1 Tab PO QID PRN Clindamycin Hcl 150 Mg Capsule 2 Cap PO QID 10 Days Naprosyn (Naproxen) 500 Mg Tablet 500 Mg PO BID PRN Clonidine Hcl 0.1 Mg Tablet 0.1 Mg PO BID Vicoprofen 200-7.5 Mg Tab (Hydrocodone/Ibuprofen) 1 Each Tablet 1 Tab PO QID Reported Lorazepam 2 Mg Tablet 2 Mg PO Q8HRS Percocet 10-325 Mg Tablet (Oxycodone/Acetaminophen) 1 Each Tablet 1-2 Tab PO Q4- 6HRS LAST DOSE GIVEN: DATE: 12/07/15 TIME: 1230 NEXT DOSE DUE: DATE: 12/07/15 TIME: 630 pm Ortho Tri-Cyclen (Norgestimate-Ethinyl Estradiol) 1 Each Tablet 1 Tab PO DAILY Celexa (Citalopram Hydrobromide) 40 Mg Tablet 1 Tab PO DAILY Methimazole 10 Mg Tablet 10 Mg PO TID Metoprolol Tartrate 50 Mg Tablet 1 Tab PO BID Allergies Allergies: Coded Allergies: No Known Drug Allergies (Unverified , 12/07/15) ROS Review of System A 14 point ROS was completed with the following noted as positive: Other systems reviewed and negative. \CONSTITUTIONAL: No fever or chills EYES: No recent changes SKIN: No rash or itching CARDIOVASCULAR: No chest pain, syncope, palpitations, or edema RESPIRATORY: No SOB or cough GASTROINTESTINAL: No nausea, vomiting or abdominal pain NEUROLOGICAL: No headaches or weakness ENDOCRINE: No cold or heat intolerance GENITOURINARY: No urgency or frequency of urination MUSCULOSKELETAL: No back pain or joint pain LYMPHATICS: No enlarged lymph nodes PSYCHIATRIC: No anxiety or depression Physical Exam Physical Exam Physical Exam General: Alert, Oriented X3, Cooperative, No acute distress HEENT: Atraumatic, PERRLA Lungs: Normal air movement, Other (wheezy) Heart: S1S2, RRR, no thrills, no gallops, no murmurs Cardiovascular: S1, S2 Abdomen: Normal bowel sounds, Soft, No tenderness, No hepatosplenomegaly, No masses, Other (obese) Rectal Exam: not examined PELVIC: Nml ext genitalia Extremities: No rashes, no edema, pulses full and equal Skin: No rashes, No breakdown, No significant lesion Neuro: Normal gait, Normal speech, Strength at 5/5 X4 ext, Normal tone, Sensation intact, Cranial nerves 3-12 NL, Reflexes 2+ Psych/Mental Status: Mental status NL, Mood NL Vitals Vitals Vital Signs Date Time Temp Pulse Resp B/P (MAP) Pulse Ox O2 Delivery O2 Flow Rate FiO2 07/25/17 10:07 16 07/25/17 10:00 76 115/70 (85) 99 Room Air 07/25/17 08:10 4.0 07/25/17 06:12 98.5 98.5 Labs Labs Laboratory Tests Test 07/24/17 20:00 07/24/17 20:08 07/24/17 20:14 07/25/17 04:50 White Blood Count 5.5 x10^3/uL (4.0-11.0) 8.6 x10^3/uL (4.0-11.0) Red Blood Count 4.29 x10^6/uL (3.50-5.40) 4.11 x10^6/uL (3.50-5.40) Hemoglobin 14.7 g/dL (12.0-15.5) 14.1 g/dL (12.0-15.5) Hematocrit 43.7 % (36.0-47.0) 41.7 % (36.0-47.0) Mean Corpuscular Volume 102 fL (79-100) 102 fL (79-100) Mean Corpuscular Hemoglobin 34 pg (25-35) 34 pg (25-35) Mean Corpuscular Hemoglobin Concent 34 g/dL (31-37) 34 g/dL (31-37) Red Cell Distribution Width 14.2 % (11.5-14.5) 14.7 % (11.5-14.5) Platelet Count 163 x10^3/uL (140-400) 157 x10^3/uL (140-400) Neutrophils (%) (Auto) 62 % (31-73) 81 % (31-73) Lymphocytes (%) (Auto) 26 % (24-48) 11 % (24-48) Monocytes (%) (Auto) 9 % (0-9) 7 % (0-9) Eosinophils (%) (Auto) 2 % (0-3) 0 % (0-3) Basophils (%) (Auto) 1 % (0-3) 0 % (0-3) Neutrophils # (Auto) 3.4 x10^3uL (1.8-7.7) 7.0 x10^3uL (1.8-7.7) Lymphocytes # (Auto) 1.5 x10^3/uL (1.0-4.8) 1.0 x10^3/uL (1.0-4.8) Monocytes # (Auto) 0.5 x10^3/uL (0.0-1.1) 0.6 x10^3/uL (0.0-1.1) Eosinophils # (Auto) 0.1 x10^3/uL (0.0-0.7) 0.0 x10^3/uL (0.0-0.7) Basophils # (Auto) 0.1 x10^3/uL (0.0-0.2) 0.0 x10^3/uL (0.0-0.2) Sodium Level 136 mmol/L (136-145) 134 mmol/L (136-145) Potassium Level 4.7 mmol/L (3.5-5.1) 3.7 mmol/L (3.5-5.1) Chloride Level 101 mmol/L (98-107) 98 mmol/L (98-107) Carbon Dioxide Level 25 mmol/L (21-32) 24 mmol/L (21-32) Anion Gap 10 (6-14) 12 (6-14) Blood Urea Nitrogen 3 mg/dL (7-20) 1 mg/dL (7-20) Creatinine 0.6 mg/dL (0.6-1.0) 0.6 mg/dL (0.6-1.0) Estimated GFR (Cockcroft-Gault) 119.0 119.0 BUN/Creatinine Ratio 5 (6-20) Glucose Level 86 mg/dL (70-99) 98 mg/dL (70-99) Calcium Level 8.5 mg/dL (8.5-10.1) 8.6 mg/dL (8.5-10.1) Total Bilirubin 0.8 mg/dL (0.2-1.0) Aspartate Amino Transf (AST/SGOT) 330 U/L (15-37) Alanine Aminotransferase (ALT/SGPT) 207 U/L (14-59) Alkaline Phosphatase 98 U/L (46-116) Total Protein 8.1 g/dL (6.4-8.2) Albumin 3.7 g/dL (3.4-5.0) Albumin/Globulin Ratio 0.8 (1.0-1.7) Ethyl Alcohol Level < 10 mg/dL (0-10) Urine Collection Type Unknown Urine Color Yellow Urine Clarity Clear Urine pH 7.0 Urine Specific [place] 1.010 Urine Protein 30 mg/dL (NEG-TRACE) Urine Glucose (UA) Negative mg/dL (NEG) Urine Ketones (Stick) Negative mg/dL (NEG) Urine Blood Negative (NEG) Urine Nitrite Positive (NEG) Urine Bilirubin Negative (NEG) Urine Urobilinogen Dipstick 1.0 mg/dL (0.2 mg/dL) Urine Leukocyte Esterase Trace (NEG) Urine RBC 0 /HPF (0-2) Urine WBC 1-4 /HPF (0-4) Urine Squamous Epithelial Cells Many /LPF Urine Bacteria Many /HPF (0-FEW) Urine Opiates Screen Neg (NEG) Urine Methadone Screen Neg (NEG) Urine Barbiturates Neg (NEG) Urine Phencyclidine Screen Neg (NEG) Urine Amphetamine/Methamphetamine Neg (NEG) Urine Benzodiazepines Screen Neg (NEG) Urine Cocaine Screen Neg (NEG) Urine Cannabinoids Screen Pos (NEG) Urine Ethyl Alcohol Neg (NEG) Bedside Urine HCG, Qualitative Hcg negative (Negative) Laboratory Tests Test 07/24/17 20:00 07/24/17 20:08 07/24/17 20:14 07/25/17 04:50 White Blood Count 5.5 x10^3/uL (4.0-11.0) 8.6 x10^3/uL (4.0-11.0) Red Blood Count 4.29 x10^6/uL (3.50-5.40) 4.11 x10^6/uL (3.50-5.40) Hemoglobin 14.7 g/dL (12.0-15.5) 14.1 g/dL (12.0-15.5) Hematocrit 43.7 % (36.0-47.0) 41.7 % (36.0-47.0) Mean Corpuscular Volume 102 fL (79-100) 102 fL (79-100) Mean Corpuscular Hemoglobin 34 pg (25-35) 34 pg (25-35) Mean Corpuscular Hemoglobin Concent 34 g/dL (31-37) 34 g/dL (31-37) Red Cell Distribution Width 14.2 % (11.5-14.5) 14.7 % (11.5-14.5) Platelet Count 163 x10^3/uL (140-400) 157 x10^3/uL (140-400) Neutrophils (%) (Auto) 62 % (31-73) 81 % (31-73) Lymphocytes (%) (Auto) 26 % (24-48) 11 % (24-48) Monocytes (%) (Auto) 9 % (0-9) 7 % (0-9) Eosinophils (%) (Auto) 2 % (0-3) 0 % (0-3) Basophils (%) (Auto) 1 % (0-3) 0 % (0-3) Neutrophils # (Auto) 3.4 x10^3uL (1.8-7.7) 7.0 x10^3uL (1.8-7.7) Lymphocytes # (Auto) 1.5 x10^3/uL (1.0-4.8) 1.0 x10^3/uL (1.0-4.8) Monocytes # (Auto) 0.5 x10^3/uL (0.0-1.1) 0.6 x10^3/uL (0.0-1.1) Eosinophils # (Auto) 0.1 x10^3/uL (0.0-0.7) 0.0 x10^3/uL (0.0-0.7) Basophils # (Auto) 0.1 x10^3/uL (0.0-0.2) 0.0 x10^3/uL (0.0-0.2) Sodium Level 136 mmol/L (136-145) 134 mmol/L (136-145) Potassium Level 4.7 mmol/L (3.5-5.1) 3.7 mmol/L (3.5-5.1) Chloride Level 101 mmol/L (98-107) 98 mmol/L (98-107) Carbon Dioxide Level 25 mmol/L (21-32) 24 mmol/L (21-32) Anion Gap 10 (6-14) 12 (6-14) Blood Urea Nitrogen 3 mg/dL (7-20) 1 mg/dL (7-20) Creatinine 0.6 mg/dL (0.6-1.0) 0.6 mg/dL (0.6-1.0) Estimated GFR (Cockcroft-Gault) 119.0 119.0 BUN/Creatinine Ratio 5 (6-20) Glucose Level 86 mg/dL (70-99) 98 mg/dL (70-99) Calcium Level 8.5 mg/dL (8.5-10.1) 8.6 mg/dL (8.5-10.1) Total Bilirubin 0.8 mg/dL (0.2-1.0) Aspartate Amino Transf (AST/SGOT) 330 U/L (15-37) Alanine Aminotransferase (ALT/SGPT) 207 U/L (14-59) Alkaline Phosphatase 98 U/L (46-116) Total Protein 8.1 g/dL (6.4-8.2) Albumin 3.7 g/dL (3.4-5.0) Albumin/Globulin Ratio 0.8 (1.0-1.7) Ethyl Alcohol Level < 10 mg/dL (0-10) Urine Collection Type Unknown Urine Color Yellow Urine Clarity Clear Urine pH 7.0 Urine Specific [place] 1.010 Urine Protein 30 mg/dL (NEG-TRACE) Urine Glucose (UA) Negative mg/dL (NEG) Urine Ketones (Stick) Negative mg/dL (NEG) Urine Blood Negative (NEG) Urine Nitrite Positive (NEG) Urine Bilirubin Negative (NEG) Urine Urobilinogen Dipstick 1.0 mg/dL (0.2 mg/dL) Urine Leukocyte Esterase Trace (NEG) Urine RBC 0 /HPF (0-2) Urine WBC 1-4 /HPF (0-4) Urine Squamous Epithelial Cells Many /LPF Urine Bacteria Many /HPF (0-FEW) Urine Opiates Screen Neg (NEG) Urine Methadone Screen Neg (NEG) Urine Barbiturates Neg (NEG) Urine Phencyclidine Screen Neg (NEG) Urine Amphetamine/Methamphetamine Neg (NEG) Urine Benzodiazepines Screen Neg (NEG) Urine Cocaine Screen Neg (NEG) Urine Cannabinoids Screen Pos (NEG) Urine Ethyl Alcohol Neg (NEG) Bedside Urine HCG, Qualitative Hcg negative (Negative) VTE Prophylaxis Ordered VTE Prophylaxis Devices: Yes VTE Pharmacological Prophylaxi: Yes Assessment/Plan Assessment/Plan Seizure-like activity, foaming of the mouth heavy alcoholic hyponatremia depression NOS on SSRI on hormone replacement therapy Plan: Okay to transfer out of ICU Await neurology Ativan when necessary Librium when necessary CIWA when necessary resume home meds MVI thiamine folate etc. Further elevations pending above course. ÓSCAR MONCADA MD Jul 25, 2017 11:50
[2017-07-25] MEDS: MULTIVITAMIN with MINERAL TABLET. PO SCH (11:55)
[2017-07-25] MEDS: FOLIC ACID 1 MG TABLET. PO SCH (11:55)
[2017-07-25] MEDS: THIAMINE 100 MG TABLET. PO SCH (11:55)
--- NOTE | 2017-07-25 13:13 | PDOC2 ---
NEUROLOGY CONSULT Date of Admission Date of Admission DATE: 07/25/17 TIME: 13:01 Reason for Consult Reason for Consult: IMPRESSION: Seizures x 3 on 07/24/17, provoked, Cannabinoids and alcohol. Long standing alcohol use/abuse. Metabolic encephalopathy.. Metabolic encephalopathy. Hepatic injury. HTN Cannabinoids positive in system. Obesity. RECOMMENDATIONS/PLAN: Alcohol detoxication treatment. Vit B1 100 mg daily. EEG. Lab: see orders. Patient education for alcohol abstinence. HCT: negative. HISTORY OF THE PRESENT ILLNESS: 27-y-old female patient with Hx of regular alcohol drinking for at least 5 years. She had 3 seizures on 07/24/17 described as generalized convulsion for several minutes each time. She stated she did not have seizure before. No focalized sensory or motor deficits. PAST MEDICAL HISTORY: HTN Alcohol. Past Surgical History No major surgery recently. Family History Hypertension Social History Smoke: <1 pack per day ALCOHOL: heavy Drugs: None ALLERGY: Reviewed. MEDICATIONS: Refer to MAR REVIEW OF SYSTEMS: Constitutional: No malnutrition, weight loss, cachexia. Head: No recent traumatic brain or head injury. Skin: No edema, or rash. Ear: No infection. Eyes: No vision loss or color blindness. Nose: No bleeding or purulent discharges. Hearing: No hearing decrease. Neck: No injury. Breast: No history of cancer, masses,or discharges. Cardiac: HTN. Pulmonary: No COPD. GI: No GI ulcer, GI bleeding. Urinary/genital: UTI. Endocrinologic: Obesity. Skeletomuscular: No muscular atrophy, deformity. Neurological: see HP. Psychiatric: Alcohol and drug use/abuse. Otherwise, not [id number] review of systems. PHYSICAL EXAMINATION: General appearance is in subacute distress. HEENT: Normocephalic and nontraumatic. Eyes, nose, ears, and throat are unremarkable. Neck is supple. No lymphadenopathy. No bruits are heard over the carotid artery. No crepitus. Cardiovascular: S1, S2, regular rate and rhythm. Pulmonary: Clear to auscultation bilaterally. Abdomen: Bowel sounds are positive. Extremities: No rash, lesions, or edema. No restriction of range of motion NEUROLOGICAL EXAMINATION: Sleepiness but arousable. Not fully oriented to time, but knows place and person. PERRL. EOMI. Horizontal nystagmus elicited. CN: no focal findings. Muscle tone: within normal. Muscle strength: 5 DTR: 2 Plantar reflex: Flexor response bilaterally Gait: not examined in bed. Sensory exam: no abnormal findings. No significant cerebellar signs elicited. F-T-N test fine. Current Medications Current Medications Current Medications Sodium Chloride 1,000 ml @ 1,000 mls/hr 1X ONCE IV Last administered on 07/24 21:18; Start 07/24/17 at 20:45; Stop 07/24/17 at 21:44; Status DC Ondansetron HCl (Zofran) 4 mg 1X ONCE IV Last administered on 07/24/17 21:18 ; Start 07/24/17 at 20:45; Stop 07/24/17 at 20:46; Status DC Meclizine HCl (Antivert) 25 mg 1X ONCE PO Last administered on 07/24/17 21: 18; Start 07/24/17 at 20:45; Stop 07/24/17 at 20:46; Status DC Lorazepam (Ativan) 2 mg STK-MED ONCE .ROUTE ; Start 07/24/17 at 22:42; Stop at 22:43; Status DC Fentanyl Citrate (Fentanyl 2ml Vial) 50 mcg 1X ONCE IV Last administered on 23:38; Start 07/24/17 at 23:15; Stop 07/24/17 at 23:16; Status DC Lorazepam (Ativan) 2 mg PRN Q1HR PRN IV For CIWA 8-14 Last administered on 22:45; Start 07/24/17 at 23:15 Lorazepam (Ativan) 4 mg PRN Q1HR PRN IV For CIWA 15 or greater; Start at 23:15 Ondansetron HCl (Zofran) 4 mg PRN Q8HRS PRN IV NAUSEA/VOMITING Last administered on 07/24/17 23:35; Start 07/24/17 at 23:15; Stop 07/25/17 at 08 :39; Status DC Fentanyl Citrate (Fentanyl 2ml Vial) 50 mcg PRN Q1HR PRN IV PAIN Last administered on 07/25/17 07:32; Start 07/24/17 at 23:15; Stop 07/25/17 at 23 :14 Ondansetron HCl (Zofran) 4 mg PRN Q6HRS PRN IV NAUSEA/VOMITING; Start at 08:45 Acetaminophen (Tylenol) 500 mg PRN Q6HRS PRN PO MILD PAIN / TEMP; Start at 08:45 Ibuprofen (Motrin) 600 mg PRN Q6HRS PRN PO INFLAMMATION; Start 07/25/17 at 08: 45 Chlordiazepoxide (Librium) 25 mg PRN Q6HRS PRN PO ANXIETY / AGITATION; Start 07/25/17 at 08:45 Nicotine (Nicoderm Cq 21mg) 1 patch PRN DAILY PRN TD SMOKING CESSATION; Start 07/25/17 at 08:45 Clonidine HCl (Catapres) 0.1 mg BID PO Last administered on 07/25/17 09:48; Start 07/25/17 at 09:00 Hydrocodone Bitartrate/ Ibuprofen (Vicoprofen 7.5-200) 1 tab QID PO Last administered on 07/25/17 11:56; Start 07/25/17 at 09:00 Methimazole (Tapazole) 10 mg TID PO Last administered on 07/25/17 09:48; Start 07/25/17 at 09:00 Metoprolol Tartrate (Lopressor) 50 mg BID PO Last administered on 07/25/17 09 :48; Start 07/25/17 at 09:00 Oxycodone/ Acetaminophen (Percocet 5/325) 1 tab PRN QID PRN PO PAIN; Start at 08:45 Citalopram Hydrobromide (CeleXA) 20 mg DAILY PO ; Start 07/26/17 at 09:00 Lorazepam (Ativan) 2 mg Q8HRS PRN PO ANXIETY / AGITATION; Start 07/25/17 at 09 :15 Non-Formulary Medication 1 tab DAILY PO ; Start 07/25/17 at 09:00; Stop at 11:50; Status DC Chlordiazepoxide (Librium) 25 mg PRN Q6HRS PRN PO ANXIETY / AGITATION; Start 07/25/17 at 11:45 Multivitamins (Thera M Plus) 1 tab DAILY PO Last administered on 07/25/17 11: 55; Start 07/25/17 at 12:00 Thiamine Mononitrate (Vitamin B-1) 100 mg DAILY PO Last administered on 11:55; Start 07/25/17 at 12:00 Folic Acid (Folic Acid) 1 mg DAILY PO Last administered on 07/25/17 11:55; Start 07/25/17 at 12:00 Active Scripts Active Percocet 5-325 Mg Tablet (Oxycodone/Acetaminophen) 1 Each Tablet 1 Tab PO QID PRN Clindamycin Hcl 150 Mg Capsule 2 Cap PO QID 10 Days Naprosyn (Naproxen) 500 Mg Tablet 500 Mg PO BID PRN Clonidine Hcl 0.1 Mg Tablet 0.1 Mg PO BID Vicoprofen 200-7.5 Mg Tab (Hydrocodone/Ibuprofen) 1 Each Tablet 1 Tab PO QID Reported Lorazepam 2 Mg Tablet 2 Mg PO Q8HRS Percocet 10-325 Mg Tablet (Oxycodone/Acetaminophen) 1 Each Tablet 1-2 Tab PO Q4- 6HRS LAST DOSE GIVEN: DATE: 12/07/15 TIME: 1230 NEXT DOSE DUE: DATE: 12/07/15 TIME: 630 pm Ortho Tri-Cyclen (Norgestimate-Ethinyl Estradiol) 1 Each Tablet 1 Tab PO DAILY Celexa (Citalopram Hydrobromide) 40 Mg Tablet 1 Tab PO DAILY Methimazole 10 Mg Tablet 10 Mg PO TID Metoprolol Tartrate 50 Mg Tablet 1 Tab PO BID Allergies Allergies: Coded Allergies: No Known Drug Allergies (Unverified , 12/07/15) Vitals VITALS Vital Signs Date Time Temp Pulse Resp B/P (MAP) Pulse Ox O2 Delivery O2 Flow Rate FiO2 07/25/17 12:00 98.3 69 20 115/81 (92) 99 Room Air 98.3 07/25/17 08:10 4.0 Labs Labs Laboratory Tests Test 07/24/17 20:00 07/24/17 20:08 07/24/17 20:14 07/25/17 04:50 White Blood Count 5.5 x10^3/uL (4.0-11.0) 8.6 x10^3/uL (4.0-11.0) Red Blood Count 4.29 x10^6/uL (3.50-5.40) 4.11 x10^6/uL (3.50-5.40) Hemoglobin 14.7 g/dL (12.0-15.5) 14.1 g/dL (12.0-15.5) Hematocrit 43.7 % (36.0-47.0) 41.7 % (36.0-47.0) Mean Corpuscular Volume 102 fL (79-100) 102 fL (79-100) Mean Corpuscular Hemoglobin 34 pg (25-35) 34 pg (25-35) Mean Corpuscular Hemoglobin Concent 34 g/dL (31-37) 34 g/dL (31-37) Red Cell Distribution Width 14.2 % (11.5-14.5) 14.7 % (11.5-14.5) Platelet Count 163 x10^3/uL (140-400) 157 x10^3/uL (140-400) Neutrophils (%) (Auto) 62 % (31-73) 81 % (31-73) Lymphocytes (%) (Auto) 26 % (24-48) 11 % (24-48) Monocytes (%) (Auto) 9 % (0-9) 7 % (0-9) Eosinophils (%) (Auto) 2 % (0-3) 0 % (0-3) Basophils (%) (Auto) 1 % (0-3) 0 % (0-3) Neutrophils # (Auto) 3.4 x10^3uL (1.8-7.7) 7.0 x10^3uL (1.8-7.7) Lymphocytes # (Auto) 1.5 x10^3/uL (1.0-4.8) 1.0 x10^3/uL (1.0-4.8) Monocytes # (Auto) 0.5 x10^3/uL (0.0-1.1) 0.6 x10^3/uL (0.0-1.1) Eosinophils # (Auto) 0.1 x10^3/uL (0.0-0.7) 0.0 x10^3/uL (0.0-0.7) Basophils # (Auto) 0.1 x10^3/uL (0.0-0.2) 0.0 x10^3/uL (0.0-0.2) Sodium Level 136 mmol/L (136-145) 134 mmol/L (136-145) Potassium Level 4.7 mmol/L (3.5-5.1) 3.7 mmol/L (3.5-5.1) Chloride Level 101 mmol/L (98-107) 98 mmol/L (98-107) Carbon Dioxide Level 25 mmol/L (21-32) 24 mmol/L (21-32) Anion Gap 10 (6-14) 12 (6-14) Blood Urea Nitrogen 3 mg/dL (7-20) 1 mg/dL (7-20) Creatinine 0.6 mg/dL (0.6-1.0) 0.6 mg/dL (0.6-1.0) Estimated GFR (Cockcroft-Gault) 119.0 119.0 BUN/Creatinine Ratio 5 (6-20) Glucose Level 86 mg/dL (70-99) 98 mg/dL (70-99) Calcium Level 8.5 mg/dL (8.5-10.1) 8.6 mg/dL (8.5-10.1) Total Bilirubin 0.8 mg/dL (0.2-1.0) Aspartate Amino Transf (AST/SGOT) 330 U/L (15-37) Alanine Aminotransferase (ALT/SGPT) 207 U/L (14-59) Alkaline Phosphatase 98 U/L (46-116) Total Protein 8.1 g/dL (6.4-8.2) Albumin 3.7 g/dL (3.4-5.0) Albumin/Globulin Ratio 0.8 (1.0-1.7) Ethyl Alcohol Level < 10 mg/dL (0-10) Urine Collection Type Unknown Urine Color Yellow Urine Clarity Clear Urine pH 7.0 Urine Specific [place] 1.010 Urine Protein 30 mg/dL (NEG-TRACE) Urine Glucose (UA) Negative mg/dL (NEG) Urine Ketones (Stick) Negative mg/dL (NEG) Urine Blood Negative (NEG) Urine Nitrite Positive (NEG) Urine Bilirubin Negative (NEG) Urine Urobilinogen Dipstick 1.0 mg/dL (0.2 mg/dL) Urine Leukocyte Esterase Trace (NEG) Urine RBC 0 /HPF (0-2) Urine WBC 1-4 /HPF (0-4) Urine Squamous Epithelial Cells Many /LPF Urine Bacteria Many /HPF (0-FEW) Urine Opiates Screen Neg (NEG) Urine Methadone Screen Neg (NEG) Urine Barbiturates Neg (NEG) Urine Phencyclidine Screen Neg (NEG) Urine Amphetamine/Methamphetamine Neg (NEG) Urine Benzodiazepines Screen Neg (NEG) Urine Cocaine Screen Neg (NEG) Urine Cannabinoids Screen Pos (NEG) Urine Ethyl Alcohol Neg (NEG) Bedside Urine HCG, Qualitative Hcg negative (Negative) Laboratory Tests Test 07/24/17 20:00 07/24/17 20:08 07/24/17 20:14 07/25/17 04:50 White Blood Count 5.5 x10^3/uL (4.0-11.0) 8.6 x10^3/uL (4.0-11.0) Red Blood Count 4.29 x10^6/uL (3.50-5.40) 4.11 x10^6/uL (3.50-5.40) Hemoglobin 14.7 g/dL (12.0-15.5) 14.1 g/dL (12.0-15.5) Hematocrit 43.7 % (36.0-47.0) 41.7 % (36.0-47.0) Mean Corpuscular Volume 102 fL (79-100) 102 fL (79-100) Mean Corpuscular Hemoglobin 34 pg (25-35) 34 pg (25-35) Mean Corpuscular Hemoglobin Concent 34 g/dL (31-37) 34 g/dL (31-37) Red Cell Distribution Width 14.2 % (11.5-14.5) 14.7 % (11.5-14.5) Platelet Count 163 x10^3/uL (140-400) 157 x10^3/uL (140-400) Neutrophils (%) (Auto) 62 % (31-73) 81 % (31-73) Lymphocytes (%) (Auto) 26 % (24-48) 11 % (24-48) Monocytes (%) (Auto) 9 % (0-9) 7 % (0-9) Eosinophils (%) (Auto) 2 % (0-3) 0 % (0-3) Basophils (%) (Auto) 1 % (0-3) 0 % (0-3) Neutrophils # (Auto) 3.4 x10^3uL (1.8-7.7) 7.0 x10^3uL (1.8-7.7) Lymphocytes # (Auto) 1.5 x10^3/uL (1.0-4.8) 1.0 x10^3/uL (1.0-4.8) Monocytes # (Auto) 0.5 x10^3/uL (0.0-1.1) 0.6 x10^3/uL (0.0-1.1) Eosinophils # (Auto) 0.1 x10^3/uL (0.0-0.7) 0.0 x10^3/uL (0.0-0.7) Basophils # (Auto) 0.1 x10^3/uL (0.0-0.2) 0.0 x10^3/uL (0.0-0.2) Sodium Level 136 mmol/L (136-145) 134 mmol/L (136-145) Potassium Level 4.7 mmol/L (3.5-5.1) 3.7 mmol/L (3.5-5.1) Chloride Level 101 mmol/L (98-107) 98 mmol/L (98-107) Carbon Dioxide Level 25 mmol/L (21-32) 24 mmol/L (21-32) Anion Gap 10 (6-14) 12 (6-14) Blood Urea Nitrogen 3 mg/dL (7-20) 1 mg/dL (7-20) Creatinine 0.6 mg/dL (0.6-1.0) 0.6 mg/dL (0.6-1.0) Estimated GFR (Cockcroft-Gault) 119.0 119.0 BUN/Creatinine Ratio 5 (6-20) Glucose Level 86 mg/dL (70-99) 98 mg/dL (70-99) Calcium Level 8.5 mg/dL (8.5-10.1) 8.6 mg/dL (8.5-10.1) Total Bilirubin 0.8 mg/dL (0.2-1.0) Aspartate Amino Transf (AST/SGOT) 330 U/L (15-37) Alanine Aminotransferase (ALT/SGPT) 207 U/L (14-59) Alkaline Phosphatase 98 U/L (46-116) Total Protein 8.1 g/dL (6.4-8.2) Albumin 3.7 g/dL (3.4-5.0) Albumin/Globulin Ratio 0.8 (1.0-1.7) Ethyl Alcohol Level < 10 mg/dL (0-10) Urine Collection Type Unknown Urine Color Yellow Urine Clarity Clear Urine pH 7.0 Urine Specific [place] 1.010 Urine Protein 30 mg/dL (NEG-TRACE) Urine Glucose (UA) Negative mg/dL (NEG) Urine Ketones (Stick) Negative mg/dL (NEG) Urine Blood Negative (NEG) Urine Nitrite Positive (NEG) Urine Bilirubin Negative (NEG) Urine Urobilinogen Dipstick 1.0 mg/dL (0.2 mg/dL) Urine Leukocyte Esterase Trace (NEG) Urine RBC 0 /HPF (0-2) Urine WBC 1-4 /HPF (0-4) Urine Squamous Epithelial Cells Many /LPF Urine Bacteria Many /HPF (0-FEW) Urine Opiates Screen Neg (NEG) Urine Methadone Screen Neg (NEG) Urine Barbiturates Neg (NEG) Urine Phencyclidine Screen Neg (NEG) Urine Amphetamine/Methamphetamine Neg (NEG) Urine Benzodiazepines Screen Neg (NEG) Urine Cocaine Screen Neg (NEG) Urine Cannabinoids Screen Pos (NEG) Urine Ethyl Alcohol Neg (NEG) Bedside Urine HCG, Qualitative Hcg negative (Negative) MINI MONTOYA MD Jul 25, 2017 13:13
[2017-07-25] MEDS: NICOTINE 21MG PATCH. TD SCH (21:24)
[2017-07-25] MEDS: ZOLPIDEM 5 MG TABLET. PO PRN (23:03)
[2017-07-25] MEDS: LORazepam 1 MG TABLET PO PRN (23:51)
[2017-07-26] MEDS: ZOLPIDEM 5 MG TABLET. PO PRN (00:39)
[2017-07-26 07:12] VITALS: BP 124/70
[2017-07-26] MEDS: FOLIC ACID 1 MG TABLET. PO SCH (07:58)
[2017-07-26] MEDS: MULTIVITAMIN with MINERAL TABLET. PO SCH (07:58)
[2017-07-26] MEDS: methIMAzole 10 MG TABLET PO SCH ×2 (07:58→12:49)
[2017-07-26] MEDS: NICOTINE 21MG PATCH. TD SCH (07:58)
[2017-07-26] MEDS: THIAMINE 100 MG TABLET. PO SCH (07:58)
[2017-07-26] MEDS: HYDROcodon/IBUPROFEN 7.5/200MG 1 TAB TABLET PO SCH ×2 (07:58→12:50)
[2017-07-26] MEDS: METOPROLOL TART IMMED RELEASE 50 MG TABLET. PO SCH (07:59)
[2017-07-26] MEDS: cloNIDine HCL 0.1 MG TABLET PO SCH (08:01)
[2017-07-26] MEDS ORDERED: CITALOPRAM 20 MG TABLET. PO SCH (09:00)
[2017-07-26 10:53] VITALS: BP 106/77
--- NOTE | 2017-07-26 11:11 | PDOC ---
PROGRESS NOTES Assessment Assessment Seizures x 3 on 07/24/17, provoked, Cannabinoids and alcohol. Long standing alcohol use/abuse. Cannabinoids positive in system. Metabolic encephalopathy.. Metabolic encephalopathy. Hepatic injury. HTN Obesity. RECOMMENDATIONS/PLAN: Alcohol detoxication treatment. Vit B1 100 mg daily. Dilantin 300 mg HS, but not effective to substances induced seizures. Brain MRI if has further seizures. Patient education for alcohol abstinence. Not driving for 6 months anytime after a seizure, she understood well. FU with PCP. FU with Neurology if has further seizures. HCT: negative. HISTORY OF THE PRESENT ILLNESS: 27-y-old female patient with Hx of regular alcohol drinking for at least 5 years. She had 3 seizures on 07/24/17 described as generalized convulsion for several minutes each time. She stated she did not have seizure before. No focalized sensory or motor deficits. No headaches, decreased vision, diplopia, ataxia, numbness or weakness. No seizures since in the hospital. PAST MEDICAL HISTORY: HTN Alcohol. Past Surgical History No major surgery recently. Family History Hypertension Social History Smoke: <1 pack per day ALCOHOL: heavy Drugs: None ALLERGY: Reviewed. MEDICATIONS: Refer to MAR REVIEW OF SYSTEMS: Constitutional: No malnutrition, weight loss, cachexia. Head: No recent traumatic brain or head injury. Skin: No edema, or rash. Ear: No infection. Eyes: No vision loss or color blindness. Nose: No bleeding or purulent discharges. Hearing: No hearing decrease. Neck: No injury. Breast: No history of cancer, masses,or discharges. Cardiac: HTN. Pulmonary: No COPD. GI: No GI ulcer, GI bleeding. Urinary/genital: UTI. Endocrinologic: Obesity. Skeletomuscular: No muscular atrophy, deformity. Neurological: see HP. Psychiatric: Alcohol and drug use/abuse. Otherwise, not -fjhym review of systems. PHYSICAL EXAMINATION: General appearance is normal. HEENT: Normocephalic and nontraumatic. Eyes, nose, ears, and throat are unremarkable. Neck is supple. No lymphadenopathy. No bruits are heard over the carotid artery. No crepitus. Cardiovascular: S1, S2, regular rate and rhythm. Pulmonary: Clear to auscultation bilaterally. Abdomen: Bowel sounds are positive. Extremities: No rash, lesions, or edema. No restriction of range of motion NEUROLOGICAL EXAMINATION: Awake. Oriented to time, but knows place and person. PERRL. EOMI. Horizontal nystagmus elicited. CN: no focal findings. Muscle tone: within normal. Muscle strength: 5 DTR: 2 Plantar reflex: Flexor response bilaterally Gait: Normal. Sensory exam: no abnormal findings. No significant cerebellar signs elicited. F-T-N test fine. Objective Objective Vital Signs Date Time Temp Pulse Resp B/P (MAP) Pulse Ox O2 Delivery O2 Flow Rate FiO2 07/26/17 10:53 98.6 66 18 106/77 (87) 98 Room Air 98.6 07/25/17 18:00 4.0 Intake and Output 07/26/17 07:00 Intake Total 1700 ml Balance 1700 ml Intake Oral 1700 ml # Voids 7 Vitals Signs Vitals VS - Last 72 Hours, by Label Date Time Temp Pulse Resp B/P (MAP) Pulse Ox O2 Delivery O2 Flow Rate FiO2 07/26/17 10:53 98.6 66 18 106/77 (87) 98 Room Air 98.6 07/26/17 10:30 Room Air 07/26/17 08:55 Room Air 07/26/17 08:01 86 124/70 07/26/17 07:59 86 124/70 07/26/17 07:58 Room Air 07/26/17 07:26 Room Air 07/26/17 07:12 98.1 86 17 124/70 (88) 96 Room Air 98.1 07/26/17 03:42 Room Air 07/25/17 23:23 98.2 70 20 105/63 (77) 96 Room Air 98.2 07/25/17 20:13 65 127/79 07/25/17 20:13 65 127/79 07/25/17 20:00 Room Air 07/25/17 19:49 97.9 65 18 127/79 (95) 95 Room Air 97.9 07/25/17 18:00 98 4.0 07/25/17 16:58 98 Room Air 4.0 07/25/17 15:22 97.4 68 18 111/81 (91) 98 Room Air 97.4 07/25/17 12:00 98.3 69 20 115/81 (92) 99 Room Air 98.3 07/25/17 11:56 19 99 Room Air 07/25/17 10:07 16 07/25/17 10:00 76 22 115/70 (85) 99 Room Air 07/25/17 09:48 77 128/87 07/25/17 09:48 77 128/87 07/25/17 09:07 16 Room Air 07/25/17 09:00 76 22 113/66 (82) 99 07/25/17 08:10 77 18 128/87 (101) 98 Nasal Cannula 4.0 07/25/17 08:02 16 99 Room Air 07/25/17 08:01 Room Air 07/25/17 07:32 16 07/25/17 07:00 75 16 138/86 (103) 99 Room Air Laboratory Laboratory Microbiology 07/24/17 Urine Culture - Preliminary, Resulted 07/24/17 Urine Culture Result 1 (CAROLYNN) - Preliminary, Resulted Medication Medications Current Medications Chlordiazepoxide (Librium) 25 mg PRN Q6HRS PRN PO ANXIETY / AGITATION; Start 07/25/17 at 11:45 Citalopram Hydrobromide (CeleXA) 20 mg DAILY PO Last administered on 07:58; Start 07/26/17 at 09:00 Folic Acid (Folic Acid) 1 mg DAILY PO Last administered on 07/26/17 07:58; Start 07/25/17 at 12:00 Multivitamins (Thera M Plus) 1 tab DAILY PO Last administered on 07/26/17 07: 58; Start 07/25/17 at 12:00 Nicotine (Nicoderm Cq 21mg) 1 patch DAILY TD Last administered on 07/26/17 07 :58; Start 07/25/17 at 21:15 Thiamine Mononitrate (Vitamin B-1) 100 mg DAILY PO Last administered on 07:58; Start 07/25/17 at 12:00 Zolpidem Tartrate (Ambien) 5 mg PRN QHS PRN PO INSOMNIA, MAY REPEAT IN 1HR Last administered on 07/26/17 00:39; Start 07/25/17 at 22:15 Comment Review of Relevant I have reviewed the following items geri (where applicable) has been applied. MINI MONTOYA MD Jul 26, 2017 11:11
[2017-07-26] MEDS: LORazepam 1 MG TABLET PO PRN (12:50)
--- NOTE | 2017-07-26 13:18 | PDOC ---
PROGRESS NOTES Chief Complaint Chief Complaint Seizures EtOH toxicity ASSESSMENT AND PLAN: 1. Seizures: provoked, Cannabis and EtOH. CT head neg. Neuro rec for "Dilantin 300 mg HS, but not effective to substances induced seizures". no driving for at least 6 mo 2. EtOH toxicity: on CIWA protocol. vitamin supplements 3. EtOH hepatitis: monitor LFTs 4. Hyponatremia: resolved 5. HTN: well controlled on home regimen 6. Hyperthyroidism: on methimazole 7. Depression: continue home meds 8. Prophylaxis: H2B, lovenox 9. Dispo: home today History of Present Illness History of Present Illness feels fine, denies any dizziness, tremors , abd pain Vitals Vitals Vital Signs Date Time Temp Pulse Resp B/P (MAP) Pulse Ox O2 Delivery O2 Flow Rate FiO2 07/26/17 12:50 Room Air 07/26/17 10:53 98.6 66 18 106/77 (87) 98 98.6 07/25/17 18:00 4.0 Physical Exam General: Alert, Oriented X3, Cooperative, No acute distress Heart: Regular rate Abdomen: Normal bowel sounds, Soft, No tenderness Extremities: No edema ARNIE BARBOUR MD Jul 26, 2017 13:18
[2017-07-26] MEDS ORDERED: ENOXAPARIN 40 MG/0.4 ML SYRINGE. SQ SCH (14:00)
[2017-07-26] MEDS ORDERED: FAMOTIDINE 20 MG TABLET. PO SCH (14:00)
[2017-07-26 14:21] LABS: ALBUMIN 3.6 g/dL (3.4-5.0); DIRECT BILIRUBIN 0.3 mg/dL (0.0-0.2); TOTAL BILIRUBIN 0.7 mg/dL (0.2-1.0); TOTAL PROTEIN 7.4 g/dL (6.4-8.2)
[2017-07-26 14:41] VITALS: BP 110/75
[2017-07-26] MEDS ORDERED: CHLO1CAP PO (15:50)
[2017-07-26] MEDS ORDERED: OXYC-323 PO (15:50)
--- NOTE | 2017-07-26 23:30 | EEG ---
DATE OF SERVICE: 07/25/2017 EEG NUMBER: [id number]. OBJECTIVE: This is a 27-year-old female patient with history of substance use including alcohol and marijuana and she had 3 seizures. EEG was requested to evaluate seizure activity. METHODS: Twenty electrodes were applied according to the international 10-20 electrode placement system. EKG monitoring, hyperventilation, intermittent photic stimulation, monopolar and bipolar montages are routinely utilized. The record was obtained on a digital system with video monitoring. FINDINGS: 1. Background: The patient was recorded in the awake and drowsy states. No sleep state was recorded. The overall background amplitude is 10-20 microvolts. The overall background rhythm is with fast activity in beta frequencies throughout the entire recording. 2. Abnormalities: No specific epileptiform discharge or electrographic seizure is seen. No focal or diffuse slowing. 3. Activation: Hyperventilation was performed with fair efforts and normal response. Intermittent photic stimulation was performed with photic driving. No specific epileptiform discharge or electrographic seizure induced by hyperventilation or intermittent photic stimulation. IMPRESSION: This EEG falls into the abnormal category of the study for the awake and drowsy states. No sleep state was recorded. The overall background rhythm is with fast activity in beta frequency throughout the entire recording. No focal, lateralizing, specific epileptiform discharge or electrographic seizure is seen. However, even a normal EEG does not rule out seizure. MINI MONTOYA MD DR: DEBORA/hero JOB#: [id number] / [id number] CRISTINA
--- NOTE | 2017-07-28 15:24 | DS ---
DATE OF DISCHARGE: 07/26/2017 CHIEF COMPLAINT: Seizures. HOSPITAL COURSE: The patient is a 27-year-old woman with chronic alcoholism who presented after sustaining 3 seizures in a row. She was admitted to the hospital, postictal. Neurology was consulted and the patient was found with alcohol intoxication as well as positive for cannabis and UDS. She was placed on CIWA protocol with vitamin supplements. Had mild alcoholic hepatitis, which was monitored with LFTs. These slowly improved. Her home medications for hypertension and hyperthyroidism were continued. As the patient remained stable, she was deemed appropriate for discharge on 07/26/2017. Neurology had recommended Dilantin 300 mg, although the effectiveness was doubted if seizures are due to substance abuse. The patient declined medication. She was warned not to drive for at least 6 months. PHYSICAL EXAMINATION: VITAL SIGNS: Blood pressure of 106/77, heart rate of 66, respiratory rate at 18. She is afebrile. GENERAL: This is an obese 27-year-old woman, alert and oriented, in no acute distress. LUNGS: Clear. HEART: Regular rate and rhythm. ABDOMEN: Positive bowel sounds. EXTREMITIES: No edema. DISCHARGE DIAGNOSES: Seizures, alcohol toxicity. DISCHARGE DISPOSITION: To home. DISCHARGE CONDITION: Improved. DISCHARGE MEDICATIONS: Please refer to MAR. DISCHARGE INSTRUCTIONS: The patient will follow up with PCP AUDRA. No driving for 6 months. ARNIE BARBOUR MD DR: UR/nts JOB#: [id number] / [id number]
== END 2017-07-26 16:00 | disposition home or self-care (01) | DRG 100 ==
LOC: ER 19:56 → 1 WEST ICU 22:51 → 6 SOUTH 07-25 12:54
PROVIDERS: ADMIT Family Medicine; ATTEND Family Medicine
DX: G40.89 Other seizures (principal); G93.41 Metabolic encephalopathy; E87.1 Hypo-osmolality and hyponatremia; F10.239 Alcohol dependence with withdrawal, unspecified; K70.10 Alcoholic hepatitis without ascites; E05.90 Thyrotoxicosis, unspecified without thyrotoxic crisis or storm; E66.9 Obesity, unspecified; Z68.25 Body mass index [BMI] 25.0-25.9, adult; F12.90 Cannabis use, unspecified, uncomplicated; F17.210 Nicotine dependence, cigarettes, uncomplicated; F32.9 Major depressive disorder, single episode, unspecified; I10 Essential (primary) hypertension; Z79.890 Hormone replacement therapy; Z82.49 Family history of ischemic heart disease and other diseases of the circulatory system; F19.10 Other psychoactive substance abuse, uncomplicated; T51.91XA Toxic effect of unspecified alcohol, accidental (unintentional), initial encounter
CPT/HCPCS: 36415; 70450; 71010; 80048; 80053; 80076; 80307; 81001; 81025; 85025; 87086; 87186; 87641; 93005; 95816; 96361; 96374; 96375; 96376; G0480; J2060; J2405; J3010; J7030; J8597; 99285-25; G0479

== ENCOUNTER 2017-08-14 04:13 | Inpatient (IN) | payer SELFPAY, BC ==
[2017-08-14 04:46] LABS: URINE HCG POC HCG NEGATIVE (Negative)
[2017-08-14 04:57] LABS: ADD MAN DIFF? NO
[2017-08-14 05:06] LABS: BASO % 0 % (0-3); EOS % 0 % (0-3); HEMATOCRIT 49.3 % (36.0-47.0); HEMOGLOBIN 17.1 g/dL (12.0-15.5); LYMPH # 1.1 x10^3/uL (1.0-4.8); LYMPH % 9 % (24-48); MEAN CORPUSCULAR HEMOGLOBIN 34 pg (25-35); MEAN CORPUSCULAR HGB CONC 35 g/dL (31-37); MEAN CORPUSCULAR VOLUME 98 fL (79-100); MONO # 0.9 x10^3/uL (0.0-1.1); MONO % 8 % (0-9); NEUT % 83 % (31-73); PLATELET COUNT 233 x10^3/uL (140-400); RED BLOOD COUNT 5.03 x10^6/uL (3.50-5.40); RED CELL DISTRIBUTION WIDTH 14.7 % (11.5-14.5); WHITE BLOOD COUNT 12.1 x10^3/uL (4.0-11.0)
[2017-08-14 05:10] LABS: BILIRUBIN,URINE SMALL (NEG); CLARITY,URINE CLOUDY; COLOR,URINE ORANGE; GLUCOSE,URINE NEGATIVE (NEG); NITRITE,URINE NEGATIVE (NEG); PH,URINE 8.5; PROTEIN,URINE >=300 mg/dL (NEG-TRACE)
[2017-08-14] MEDS: HALOPERIDOL LACTATE 5 MG/ML VIAL. IVP (05:14)
[2017-08-14] MEDS: diphenhydrAMINE 50 MG/ML VIAL IVP (05:15)
[2017-08-14] MEDS: IV NORMAL SALINE 500ML BAG 500 ML IV (05:15)
[2017-08-14] MEDS: ONDANSETRON PF 4 MG/2 ML VIAL. IV (05:15)
[2017-08-14 05:19] LABS: BARBITURATES NEG (NEG); BENZODIAZEPINES POS (NEG); CANNABINOIDS POS (NEG); COCAINE NEG (NEG); METHADONE NEG (NEG); OPIATES NEG (NEG); PHENCYCLIDINE NEG (NEG)
[2017-08-14 05:23] LABS: LIPASE 108 U/L (73-393)
[2017-08-14 05:26] LABS: AMPHETAMINE/METHAMPHETAMINE NEG (NEG); ETHANOL, URINE NEG (NEG)
[2017-08-14 05:27] LABS: BACTERIA,URINE MANY /HPF (0-FEW); HYALINE CASTS, URINE MODERATE /HPF; RBC,URINE OCC /HPF (0-2); SQUAMOUS EPITHELIAL CELL,UR MANY /LPF
[2017-08-14 05:32] LABS: ALBUMIN 4.8 g/dL (3.4-5.0); ALK PHOS 85 U/L (46-116); ALT (SGPT) 43 U/L (14-59); ANION GAP 16 (6-14); AST (SGOT) 77 U/L (15-37); BLOOD UREA NITROGEN 11 mg/dL (7-20); BUN/CREATININE RATIO 9 (6-20); CALCIUM 9.6 mg/dL (8.5-10.1); CARBON DIOXIDE 31 mmol/L (21-32); CHLORIDE 87 mmol/L (98-107); CREATININE 1.2 mg/dL (0.6-1.0); GFR 53.5; GLUCOSE 180 mg/dL (70-99); SODIUM 134 mmol/L (136-145); TOTAL BILIRUBIN 1.3 mg/dL (0.2-1.0); TOTAL PROTEIN 9.7 g/dL (6.4-8.2)
[2017-08-14 05:36] LABS: POTASSIUM 2.4 mmol/L (3.5-5.1)
[2017-08-14] MEDS ORDERED: POTASSIUM CHLORIDE 20MEQ 50 ML IV (05:45)
[2017-08-14 06:01] LABS: MAGNESIUM 1.5 mg/dL (1.8-2.4)
[2017-08-14] MEDS: POTASSIUM CHLORIDE 10MEQ 100 ML IV ×2 (06:18→07:19)
[2017-08-14] MEDS: IV NORMAL SALINE 1000ML BAG 1,000 ML IV ×4 (06:18→20:20)
[2017-08-14] MEDS ORDERED: CHLORDIAZEPOXIDE/CLIDINIUM 5MG/2.5MG CAPSULE. PO (07:00)
[2017-08-14] MEDS: methIMAzole 10 MG TABLET PO ×4 (09:00→21:02)
[2017-08-14] MEDS ORDERED: NORGESTIMATE ETHINYL ESTRADIOL PO (09:00)
[2017-08-14] MEDS: POTASSIUM CHLORIDE 20 MEQ TABLET.ER. PO ×3 (10:07→17:30)
[2017-08-14] MEDS: CITALOPRAM 20 MG TABLET. PO (10:08)
[2017-08-14] MEDS: cloNIDine HCL 0.1 MG TABLET PO ×2 (10:09→21:02)
[2017-08-14] MEDS: HYDROcodon/IBUPROFEN 7.5/200MG 1 TAB TABLET PO ×4 (10:11→21:02)
[2017-08-14] MEDS ORDERED: LORazepam 1 MG TABLET PO (11:15)
[2017-08-14] MEDS: METOPROLOL TART IMMED RELEASE 50 MG TABLET. PO ×2 (11:27→21:00)
[2017-08-14] MEDS: MAGNESIUM SULFATE 2GM 50 ML IV (11:28)
[2017-08-14] MEDS: LORazepam 1 MG TABLET PO ×2 (11:30→21:02)
[2017-08-14] MEDS ORDERED: NICOTINE POLACRILEX 2MG GUM PACKAGE of 12. BC (12:00)
[2017-08-14] MEDS: NICOTINE 21MG PATCH. TD (13:50)
[2017-08-14] MEDS: MULTIVIT INFUSN,ADULT 4,VIT K 10 ML, THIAMINE 100 MG, FOLIC ACID 1 MG in IV NORMAL SALI... IV (14:26)
[2017-08-14] MEDS: oxyCODONE/APAP 5/325 1 TAB TABLET PO (15:31)
[2017-08-14] MEDS: ZOLPIDEM 5 MG TABLET. PO (23:08)
[2017-08-15] MEDS: IV NORMAL SALINE 1000ML BAG 1,000 ML IV ×3 (02:55→16:20)
[2017-08-15 04:18] LABS: ADD MAN DIFF? NO
[2017-08-15 04:21] LABS: BASO % 1 % (0-3); EOS # 0.1 x10^3/uL (0.0-0.7); EOS % 2 % (0-3); HEMATOCRIT 39.3 % (36.0-47.0); HEMOGLOBIN 13.2 g/dL (12.0-15.5); LYMPH # 1.7 x10^3/uL (1.0-4.8); LYMPH % 41 % (24-48); MEAN CORPUSCULAR HEMOGLOBIN 34 pg (25-35); MEAN CORPUSCULAR HGB CONC 34 g/dL (31-37); MEAN CORPUSCULAR VOLUME 102 fL (79-100); MONO # 0.3 x10^3/uL (0.0-1.1); MONO % 8 % (0-9); NEUT # 2.1 x10^3uL (1.8-7.7); NEUT % 49 % (31-73); PLATELET COUNT 133 x10^3/uL (140-400); RED BLOOD COUNT 3.85 x10^6/uL (3.50-5.40); RED CELL DISTRIBUTION WIDTH 14.4 % (11.5-14.5); WHITE BLOOD COUNT 4.2 x10^3/uL (4.0-11.0)
[2017-08-15 05:21] LABS: ALBUMIN/GLOBULIN RATIO 0.9 (1.0-1.7); ALK PHOS 58 U/L (46-116); ALT (SGPT) 32 U/L (14-59); ANION GAP 8 (6-14); AST (SGOT) 72 U/L (15-37); BLOOD UREA NITROGEN 6 mg/dL (7-20); BUN/CREATININE RATIO 8 (6-20); CALCIUM 7.3 mg/dL (8.5-10.1); CARBON DIOXIDE 28 mmol/L (21-32); CHLORIDE 104 mmol/L (98-107); CREATININE 0.8 mg/dL (0.6-1.0); GFR 85.4; GLUCOSE 85 mg/dL (70-99); POTASSIUM 3.2 mmol/L (3.5-5.1); SODIUM 140 mmol/L (136-145); TOTAL BILIRUBIN 0.4 mg/dL (0.2-1.0); TOTAL PROTEIN 6.3 g/dL (6.4-8.2)
[2017-08-15] MEDS: LEVOTHYROXINE 150 MCG TABLET PO (06:35)
[2017-08-15] MEDS: oxyCODONE/APAP 5/325 1 TAB TABLET PO (06:35)
[2017-08-15] MEDS: POTASSIUM CHLORIDE 20 MEQ TABLET.ER. PO ×2 (09:07→12:00)
[2017-08-15] MEDS: LORazepam 1 MG TABLET PO ×2 (09:08→19:41)
[2017-08-15] MEDS: HYDROcodon/IBUPROFEN 7.5/200MG 1 TAB TABLET PO ×4 (09:08→19:41)
[2017-08-15] MEDS: CITALOPRAM 20 MG TABLET. PO (09:08)
[2017-08-15] MEDS: methIMAzole 10 MG TABLET PO ×3 (09:08→19:41)
[2017-08-15] MEDS: METOPROLOL TART IMMED RELEASE 50 MG TABLET. PO ×2 (09:08→19:41)
[2017-08-15] MEDS: cloNIDine HCL 0.1 MG TABLET PO ×2 (09:09→19:41)
[2017-08-15] MEDS: fentaNYL PF VIAL 100 MCG/2 ML VIAL IV (10:30)
[2017-08-15] MEDS: PHENOL ORAL SPRAY 177ML BOTTLE. PO (11:02)
[2017-08-15] MEDS: MAGNESIUM SULFATE 4GM 100 ML IV (11:03)
[2017-08-15] MEDS: NICOTINE 21MG PATCH. TD (12:59)
[2017-08-15] MEDS: ONDANSETRON PF 4 MG/2 ML VIAL. IV (13:57)
[2017-08-15] MEDS: oxyCODONE IR 5 MG TABLET PO (17:50)
[2017-08-15] MEDS: FLU VACC QS2017-18 (36MOS+)/PF 0.5 ML SYRINGE. VAX IM (17:53)
[2017-08-15] MEDS: ZOLPIDEM 5 MG TABLET. PO (22:30)
[2017-08-16] MEDS: IV NORMAL SALINE 1000ML BAG 1,000 ML IV ×2 (00:30→07:16)
[2017-08-16] MEDS: oxyCODONE IR 5 MG TABLET PO (00:30)
[2017-08-16] MEDS: LORazepam 1 MG TABLET PO (07:15)
[2017-08-16] MEDS: CITALOPRAM 20 MG TABLET. PO (07:16)
[2017-08-16] MEDS: HYDROcodon/IBUPROFEN 7.5/200MG 1 TAB TABLET PO (07:16)
[2017-08-16] MEDS: LEVOTHYROXINE 150 MCG TABLET PO (07:16)
[2017-08-16] MEDS: POTASSIUM CHLORIDE 20 MEQ TABLET.ER. PO (07:16)
[2017-08-16] MEDS: methIMAzole 10 MG TABLET PO (07:16)
[2017-08-16] MEDS: METOPROLOL TART IMMED RELEASE 50 MG TABLET. PO (07:17)
[2017-08-16] MEDS: cloNIDine HCL 0.1 MG TABLET PO (07:19)
[2017-08-16] MEDS: ONDANSETRON PF 4 MG/2 ML VIAL. IV (07:21)
[2017-08-16] MEDS: FAMOTIDINE 20 MG/2 ML VIAL IVP (09:00)
[2017-08-16] MEDS: LIDO:MAALOX:DONNATAL 1:1:1 15 ML SINGLE DOSE SWSW (09:41)
[2017-08-16] MEDS: fentaNYL PF VIAL 100 MCG/2 ML VIAL IV (09:42)
[2017-08-16] MEDS ORDERED: LIDO:MAALOX:DONNATAL 1:1:1 15 ML SINGLE DOSE SWSW (12:00)
[2017-08-16] MEDS ORDERED: PANTOPRAZOLE 40 MG TABLET.DR. PO (12:30)
[2017-08-16] MEDS ORDERED: FAMOTIDINE 20 MG TABLET. PO (21:00)
== END 2017-08-16 12:32 | disposition home or self-care (01) | DRG 391 ==
LOC: ER 04:13 → 6 SOUTH 05:43
DX: A08.4 Viral intestinal infection, unspecified (principal); N17.0 Acute kidney failure with tubular necrosis; E83.42 Hypomagnesemia; K76.0 Fatty (change of) liver, not elsewhere classified; E05.00 Thyrotoxicosis with diffuse goiter without thyrotoxic crisis or storm; E87.6 Hypokalemia; E86.0 Dehydration; F10.20 Alcohol dependence, uncomplicated; F17.210 Nicotine dependence, cigarettes, uncomplicated; F41.9 Anxiety disorder, unspecified; I10 Essential (primary) hypertension; K59.00 Constipation, unspecified; Z82.49 Family history of ischemic heart disease and other diseases of the circulatory system; E05.90 Thyrotoxicosis, unspecified without thyrotoxic crisis or storm; F32.9 Major depressive disorder, single episode, unspecified; F19.10 Other psychoactive substance abuse, uncomplicated; Z90.49 Acquired absence of other specified parts of digestive tract; R07.0 Pain in throat
CPT/HCPCS: 36415; 80053; 80307; 81001; 81025; 83690; 83735; 85025; 87086; 90686; 93005; 96361; 96365; 96375; 99285-25; J1200; J1630; J2060; J2405; J3010; J3475; J3480; J7030; J7040; J7060; S0028

== ENCOUNTER 2017-10-02 22:34 | Emergency (ER) | payer OTHER ==
[2017-10-02 23:22] LABS: AMPHETAMINE/METHAMPHETAMINE NEG (NEG); BARBITURATES NEG (NEG); BENZODIAZEPINES POS (NEG); CANNABINOIDS POS (NEG); COCAINE NEG (NEG); ETHANOL, URINE POS (NEG); METHADONE NEG (NEG); OPIATES NEG (NEG); PHENCYCLIDINE NEG (NEG)
[2017-10-02 23:28] LABS: ACETAMIN < 2 mcg/ml (10-30); ETHANOL 191 mg/dL (0-10); SALIC < 2.8 mg/dL (2.8-20.0)
[2017-10-02 23:31] LABS: LACTIC ACID 0.6 mmol/L (0.4-2.0)
[2017-10-02] MEDS: IV NORMAL SALINE 1000ML BAG 1,000 ML IV ×2 (23:36)
[2017-10-02 23:49] LABS: ADD MAN DIFF? NO
[2017-10-02 23:51] LABS: BASO # 0.1 x10^3/uL (0.0-0.2); BASO % 1 % (0-3); EOS # 0.1 x10^3/uL (0.0-0.7); EOS % 1 % (0-3); HEMATOCRIT 41.4 % (36.0-47.0); HEMOGLOBIN 14.5 g/dL (12.0-15.5); LYMPH # 2.1 x10^3/uL (1.0-4.8); LYMPH % 36 % (24-48); MEAN CORPUSCULAR HEMOGLOBIN 35 pg (25-35); MEAN CORPUSCULAR HGB CONC 35 g/dL (31-37); MEAN CORPUSCULAR VOLUME 99 fL (79-100); MONO # 0.5 x10^3/uL (0.0-1.1); MONO % 8 % (0-9); NEUT # 3.3 x10^3uL (1.8-7.7); NEUT % 54 % (31-73); PLATELET COUNT 179 x10^3/uL (140-400); RED BLOOD COUNT 4.18 x10^6/uL (3.50-5.40); RED CELL DISTRIBUTION WIDTH 15.6 % (11.5-14.5)
[2017-10-02 23:56] LABS: ANION GAP 5 (6-14); BLOOD UREA NITROGEN 8 mg/dL (7-20); BUN/CREATININE RATIO 10 (6-20); CALCIUM 8.4 mg/dL (8.5-10.1); CARBON DIOXIDE 29 mmol/L (21-32); CHLORIDE 103 mmol/L (98-107); CREATININE 0.8 mg/dL (0.6-1.0); GFR 85.4; GLUCOSE 118 mg/dL (70-99); POTASSIUM 3.7 mmol/L (3.5-5.1); SODIUM 137 mmol/L (136-145)
[2017-10-03 00:02] LABS: ALBUMIN 3.5 g/dL (3.4-5.0); ALBUMIN/GLOBULIN RATIO 0.8 (1.0-1.7); ALK PHOS 139 U/L (46-116); TOTAL BILIRUBIN 0.2 mg/dL (0.2-1.0); TOTAL PROTEIN 7.7 g/dL (6.4-8.2)
[2017-10-03 00:20] LABS: ALT (SGPT) 87 U/L (14-59); AST (SGOT) 125 U/L (15-37)
[2017-10-03] MEDS: NEOMY/BACITR/POLYMYXIN OINT PACKET. TP ×2 (01:27)
[2017-10-03] MEDS ORDERED: chlordiazePOXIDE HCL 25 MG CAPSULE ×2 (01:36)
[2017-10-03] MEDS: chlordiazePOXIDE HCL 25 MG CAPSULE PO ×2 (01:38)
== END 2017-10-03 05:00 | disposition home or self-care (01) ==
LOC: ER 10-03 05:00
DX: S41.112A Laceration without foreign body of left upper arm, initial encounter (principal); R45.851 Suicidal ideations; F10.920 Alcohol use, unspecified with intoxication, uncomplicated; F32.9 Major depressive disorder, single episode, unspecified; I10 Essential (primary) hypertension; E05.90 Thyrotoxicosis, unspecified without thyrotoxic crisis or storm; X78.8XXA Intentional self-harm by other sharp object, initial encounter; Y93.89 Activity, other specified; Y92.89 Other specified places as the place of occurrence of the external cause; Y99.8 Other external cause status
CPT/HCPCS: 36415; 80053; 80307; 80329; 83605; 85025; 96360; 99284-25; G0480; J7030

== ENCOUNTER 2017-12-17 07:39 | Emergency (ER) | payer OTHER ==
[2017-12-17] MEDS: IV NORMAL SALINE 1000ML BAG 1,000 ML IV (08:05)
[2017-12-17 08:06] LABS: ADD MAN DIFF? NO
[2017-12-17 08:11] LABS: BASO # 0.1 x10^3/uL (0.0-0.2); BASO % 1 % (0-3); BILIRUBIN,URINE NEGATIVE (NEG); CLARITY,URINE CLEAR; COLOR,URINE YELLOW; EOS # 0.2 x10^3/uL (0.0-0.7); EOS % 3 % (0-3); GLUCOSE,URINE NEGATIVE (NEG); HEMATOCRIT 41.5 % (36.0-47.0); HEMOGLOBIN 14.3 g/dL (12.0-15.5); LYMPH # 2.3 x10^3/uL (1.0-4.8); LYMPH % 39 % (24-48); MEAN CORPUSCULAR HEMOGLOBIN 34 pg (25-35); MEAN CORPUSCULAR HGB CONC 35 g/dL (31-37); MEAN CORPUSCULAR VOLUME 99 fL (79-100); MONO # 0.4 x10^3/uL (0.0-1.1); MONO % 8 % (0-9); NEUT # 2.9 x10^3uL (1.8-7.7); NEUT % 49 % (31-73); NITRITE,URINE NEGATIVE (NEG); PH,URINE 6.5; PLATELET COUNT 227 x10^3/uL (140-400); PROTEIN,URINE NEGATIVE (NEG-TRACE); RED BLOOD COUNT 4.19 x10^6/uL (3.50-5.40); RED CELL DISTRIBUTION WIDTH 14.4 % (11.5-14.5); UROBILINOGEN,URINE 0.2 mg/dL (0.2 mg/dL); WHITE BLOOD COUNT 5.9 x10^3/uL (4.0-11.0)
[2017-12-17 08:16] LABS: BARBITURATES NEG (NEG); BENZODIAZEPINES NEG (NEG); CANNABINOIDS NEG (NEG); COCAINE NEG (NEG); METHADONE NEG (NEG); OPIATES NEG (NEG); PHENCYCLIDINE NEG (NEG)
[2017-12-17 08:17] LABS: AMPHETAMINE/METHAMPHETAMINE NEG (NEG); ETHANOL, URINE POS (NEG)
[2017-12-17 08:18] LABS: BACTERIA,URINE 0 /HPF (0-FEW); RBC,URINE 0 /HPF (0-2); SQUAMOUS EPITHELIAL CELL,UR FEW /LPF; WBC,URINE 0 /HPF (0-4)
[2017-12-17 08:21] LABS: ANION GAP 12 (6-14); BLOOD UREA NITROGEN 15 mg/dL (7-20); BUN/CREATININE RATIO 19 (6-20); CALCIUM 8.6 mg/dL (8.5-10.1); CARBON DIOXIDE 22 mmol/L (21-32); CHLORIDE 105 mmol/L (98-107); CREATININE 0.8 mg/dL (0.6-1.0); GFR 85.4; GLUCOSE 100 mg/dL (70-99); INR 1.1 (0.8-1.1); PARTIAL THROMBOPLASTIN TIME 26 SEC (24-38); POTASSIUM 4.5 mmol/L (3.5-5.1); PROTHROMBIN TIME PATIENT 13.5 SEC (11.7-14.0); SODIUM 139 mmol/L (136-145)
[2017-12-17 08:26] LABS: ALBUMIN 3.4 g/dL (3.4-5.0); ALBUMIN/GLOBULIN RATIO 0.8 (1.0-1.7); ALK PHOS 57 U/L (46-116); ALT (SGPT) 39 U/L (14-59); AST (SGOT) 54 U/L (15-37); LIPASE 216 U/L (73-393); MAGNESIUM 1.9 mg/dL (1.8-2.4); TOTAL BILIRUBIN 0.2 mg/dL (0.2-1.0); TOTAL PROTEIN 7.5 g/dL (6.4-8.2)
[2017-12-17 08:33] LABS: SALIC 3.8 mg/dL (2.8-20.0)
[2017-12-17 08:34] LABS: ACETAMIN < 2 mcg/ml (10-30)
[2017-12-17 08:35] LABS: ETHANOL 341 mg/dL (0-10)
[2017-12-17 09:28] LABS: URINE HCG POC HCG NEGATIVE (Negative)
== END 2017-12-17 11:01 | disposition home or self-care (01) ==
LOC: ER 07:39
DX: F10.129 Alcohol abuse with intoxication, unspecified (principal); S00.91XA Abrasion of unspecified part of head, initial encounter; I10 Essential (primary) hypertension; E05.90 Thyrotoxicosis, unspecified without thyrotoxic crisis or storm; F12.10 Cannabis abuse, uncomplicated; F17.210 Nicotine dependence, cigarettes, uncomplicated; F32.9 Major depressive disorder, single episode, unspecified; W19.XXXA Unspecified fall, initial encounter; Y93.01 Activity, walking, marching and hiking; Y92.410 Unspecified street and highway as the place of occurrence of the external cause; Y99.8 Other external cause status
CPT/HCPCS: 36415; 51701; 70450; 72125; 80053; 80307; 80329; 81001; 81025; 83690; 83735; 84702; 85025; 85610; 85730; 93005; 99285-25; G0480; J7030

== ENCOUNTER 2017-12-27 12:59 | Emergency (ER) | payer OTHER ==
[2017-12-27 13:23] LABS: ADD MAN DIFF? NO
[2017-12-27 13:27] LABS: BASO % 1 % (0-3); BILIRUBIN,URINE NEGATIVE (NEG); CLARITY,URINE CLEAR; COLOR,URINE YELLOW; EOS # 0.2 x10^3/uL (0.0-0.7); EOS % 4 % (0-3); GLUCOSE,URINE NEGATIVE (NEG); HEMATOCRIT 43.8 % (36.0-47.0); HEMOGLOBIN 15.3 g/dL (12.0-15.5); LYMPH # 2.3 x10^3/uL (1.0-4.8); LYMPH % 39 % (24-48); MEAN CORPUSCULAR HEMOGLOBIN 34 pg (25-35); MEAN CORPUSCULAR HGB CONC 35 g/dL (31-37); MEAN CORPUSCULAR VOLUME 98 fL (79-100); MONO # 0.5 x10^3/uL (0.0-1.1); MONO % 8 % (0-9); NEUT # 2.9 x10^3uL (1.8-7.7); NEUT % 49 % (31-73); NITRITE,URINE NEGATIVE (NEG); PH,URINE 7.5; PLATELET COUNT 241 x10^3/uL (140-400); PROTEIN,URINE NEGATIVE (NEG-TRACE); RED BLOOD COUNT 4.46 x10^6/uL (3.50-5.40); RED CELL DISTRIBUTION WIDTH 14.4 % (11.5-14.5); UROBILINOGEN,URINE 0.2 mg/dL (0.2 mg/dL)
[2017-12-27 13:32] LABS: ANION GAP 11 (6-14); BLOOD UREA NITROGEN 15 mg/dL (7-20); BUN/CREATININE RATIO 19 (6-20); CARBON DIOXIDE 25 mmol/L (21-32); CHLORIDE 100 mmol/L (98-107); CREATININE 0.8 mg/dL (0.6-1.0); GFR 85.4; GLUCOSE 88 mg/dL (70-99); POTASSIUM 4.4 mmol/L (3.5-5.1); SODIUM 136 mmol/L (136-145)
[2017-12-27 13:34] LABS: ETHANOL 199 mg/dL (0-10)
[2017-12-27] MEDS: LIDO:MAALOX 1:1 20 ML SINGLE DOSE. SWSW (13:35)
[2017-12-27] MEDS: IV NORMAL SALINE 1000ML BAG 1,000 ML IV (13:35)
[2017-12-27 13:38] LABS: ALBUMIN/GLOBULIN RATIO 0.9 (1.0-1.7); ALK PHOS 58 U/L (46-116); ALT (SGPT) 51 U/L (14-59); AST (SGOT) 38 U/L (15-37); LIPASE 142 U/L (73-393); TOTAL BILIRUBIN 0.2 mg/dL (0.2-1.0); TOTAL PROTEIN 8.4 g/dL (6.4-8.2)
[2017-12-27 13:46] LABS: BACTERIA,URINE 0 /HPF (0-FEW); RBC,URINE 0 /HPF (0-2); SQUAMOUS EPITHELIAL CELL,UR FEW /LPF; WBC,URINE OCC /HPF (0-4)
[2017-12-27 15:06] LABS: NEG OBC UR NEG; POS OBC UR POS; U PREG PATIENT NEGATIVE (NEG)
== END 2017-12-27 15:30 | disposition home or self-care (01) ==
LOC: ER 12:59
DX: F10.229 Alcohol dependence with intoxication, unspecified (principal); F32.9 Major depressive disorder, single episode, unspecified; I10 Essential (primary) hypertension; F12.10 Cannabis abuse, uncomplicated; F11.10 Opioid abuse, uncomplicated
CPT/HCPCS: 36415; 71045; 80053; 81001; 81025; 83690; 85025; 96360; 99285-25; G0480; J7030

== ENCOUNTER 2018-04-02 10:58 | Emergency (ER) | payer OTHER ==
[~2018-04-02] VITALS: Ht 167.6 cm; Wt 103.4 kg
[~2018-04-02 10:58] MED LIST changes: +CHLO10CA5 PO; +CHLO1CAP PO; +CHLO25CA9 PO; +FAMO-63 PO; +LEVO150T5 PO; +LORA-434 PO
[2018-04-02 11:33] VITALS: BP 101/63
[2018-04-02 11:52] LABS: BILIRUBIN,URINE NEGATIVE (NEG); CLARITY,URINE CLEAR; COLOR,URINE YELLOW; NITRITE,URINE NEGATIVE (NEG); PROTEIN,URINE NEGATIVE (NEG-TRACE); UROBILINOGEN,URINE 0.2 mg/dL (0.2 mg/dL)
[2018-04-02] MEDS ORDERED: KETOROLAC 30 MG/ML VIAL. IM ONE (12:00)
[2018-04-02] MEDS ORDERED: ORPHENADRINE CITRATE 60 MG/2 ML VIAL. IM ONE (12:00)
[2018-04-02 12:03] LABS: WBC,URINE OCC /HPF (0-4)
[2018-04-02 12:04] LABS: BACTERIA,URINE FEW /HPF (0-FEW); SQUAMOUS EPITHELIAL CELL,UR MOD /LPF
[2018-04-02] MEDS ORDERED: ORPH100T PO (12:37)
[2018-04-02] MEDS ORDERED: NAPR500T8 PO (12:37)
--- NOTE | 2018-04-02 12:38 | PHYS DOC ---
Past Medical History Past Medical History: Alcoholism, Depression, Hypertension, Hyperthyroid Additional Past Medical Histor: ALCOHOL ABUSE, SUBSTANCE ABUSE Past Surgical History: Additional Past Surgical Histo: THYROID ABLASION Alcohol Use: Heavy Drug Use: Marijuana, Opiates Adult General Chief Complaint Chief Complaint: LOWER BACK PAIN OR INJURY HPI HPI Patient is a 27 year old female who presents to the emergency Department today with complaints of low back pain for the last 10 days. She states that the pain increases with her activity. She denies any recent injury, fall, or heavy lifting. States that her last menstrual cycle started today. She denies any loss of bowel or bladder control or saddle anesthesia. She reports increased urinary frequency for the last week or so. She denies any abnormal vaginal discharge, hematuria, dysuria, or abdominal pain. Patient states that she did not drive today and she is requesting medication for relief of her pain, she currently reports that her pain is 8 out of 10 on the pain scale Review of Systems Review of Systems Constitutional: Denies fever or chills [] GI: Denies abdominal pain, saddle anesthesia : Denies irregular vaginal discharge, dysuria, or hematuria; reports increased urinary frequency [] Musculoskeletal: Reports low back pain Neurologic: Denies headache, focal weakness or sensory changes [] All other systems were reviewed and found to be within normal limits, except as documented in this note. Current Medications Current Medications Current Medications Medications (Trade) Dose Ordered Sig/[facility] Start Time Stop Time Status Last Admin Dose Admin Ketorolac Tromethamine (Toradol 30mg Vial) 30 mg 1X ONCE 04/02/18 12:00 04/02/18 12:01 DC 04/02/18 12:10 30 MG Orphenadrine Citrate (Norflex) 60 mg 1X ONCE 04/02/18 12:00 04/02/18 12:01 DC 04/02/18 12:10 60 MG Allergies Allergies Allergies Coded Allergies Type Severity Reaction Last Updated Verified No Known Drug Allergies 12/07/15 No Physical Exam Physical Exam Constitutional: Well developed, well nourished, no acute distress, non-toxic appearance, obese. [] HENT: Normocephalic, atraumatic, bilateral external ears normal, nose normal. [] Eyes: PERRLA, conjunctiva normal, no discharge. [] Skin: Warm, dry, no erythema, no rash. [] Back: No bony tenderness, bilateral CVA tenderness. [] Extremities: No tenderness, no cyanosis, no clubbing, ROM intact, no edema. [] Neurologic: Alert and oriented X 3, normal motor function, normal sensory function, no focal deficits noted. [] Psychologic: Affect normal, judgement normal, mood normal. [] Current Patient Data Vital Signs Vital Signs Date Time Temp Pulse Resp B/P (MAP) Pulse Ox O2 Delivery O2 Flow Rate FiO2 04/02/18 11:33 97.9 85 12 101/63 (76) 99 Room Air 97.9 Lab Values Laboratory Tests Test 04/02/18 11:40 04/02/18 11:44 Urine Collection Type Void Urine Color Yellow Urine Clarity Clear Urine pH 6.0 Urine Specific [place] <=1.005 Urine Protein Negative mg/dL (NEG-TRACE) Urine Glucose (UA) Negative mg/dL (NEG) Urine Ketones (Stick) Negative mg/dL (NEG) Urine Blood Moderate (NEG) Urine Nitrite Negative (NEG) Urine Bilirubin Negative (NEG) Urine Urobilinogen Dipstick 0.2 mg/dL (0.2 mg/dL) Urine Leukocyte Esterase Negative (NEG) Urine RBC 1-2 /HPF (0-2) Urine WBC Occ /HPF (0-4) Urine Squamous Epithelial Cells Mod /LPF Urine Bacteria Few /HPF (0-FEW) Urine Mucus Slight /LPF POC Urine HCG, Qualitative Hcg negative (Negative) EKG EKG [] Radiology/Procedures Radiology/Procedures [] Course & Med Decision Making Course & Med Decision Making Pertinent Labs and Imaging studies reviewed. (See chart for details) Patient is a 27-year-old female who presented to the emergency room with complaints of low back pain and increased urinary frequency. VSS, and the department patient was given a shot of Toradol and orphenadrine for relief of her pain. Urinalysis was negative for any acute findings, patient is currently on her menstrual cycle which explains the red blood cells and blood that are present in the urine. Patient advised that this is a lumbar back strain, without any injury no x-rays are needed, patient agrees. A prescription for naproxen and orphenadrine will be written. Patient verbalized understanding of home care, prescriptions, follow-up, and return to ED instructions no further questions or concerns. [] Dragon Disclaimer Dragon Disclaimer This electronic medical record was generated, in whole or in part, using a voice recognition dictation system. Departure Departure Impression: Primary Impression: Low back pain Disposition: 01 HOME, SELF-CARE Condition: STABLE Referrals: JANUARY RIZZO MD (PCP) Patient Instructions: Back Pain, Adult, [id number] Additional Instructions: Fill the Prescriptions and use as directed. Apply ice or heat to sore areas as needed for comfort. Activity as tolerated. Follow-up with her primary care doctor in 1-2 days for reevaluation. Return to the emergency room if her symptoms worsen. Scripts Orphenadrine Citrate (ORPHENADRINE CITRATE) 100 Mg Tablet.er 1 TAB PO BID PRN for PAIN for 7 Days, #14 TAB 0 Refills Prov: ALFA GTZ APRN 04/02/18 Naproxen (NAPROXEN) 500 Mg Tablet.dr 1 TAB PO BID for 10 Days, #20 TAB 0 Refills Prov: ALFA GTZ APRN 04/02/18 Problem Qualifiers Primary Impression: Low back pain Chronicity: acute Back pain laterality: bilateral Sciatica presence: without sciatica Qualified Codes: M54.5 - Low back pain ALFA GTZ NET WASHER Apr 02, 2018 12:38
== END 2018-04-02 12:41 | disposition home or self-care (01) ==
LOC: ER 10:58
DX: M54.5 Low back pain (principal); R35.0 Frequency of micturition; I10 Essential (primary) hypertension; E05.90 Thyrotoxicosis, unspecified without thyrotoxic crisis or storm; F10.229 Alcohol dependence with intoxication, unspecified; Y90.9 Presence of alcohol in blood, level not specified
CPT/HCPCS: 81001; 81025; 96372; 99284; J1885; J2360

== ENCOUNTER 2018-05-23 23:37 | Emergency (ER) | payer OTHER ==
[~2018-05-23] VITALS: Ht 167.6 cm; Wt 90.7 kg
[~2018-05-23 23:37] MED LIST changes: +NAPR500T8 PO; +ORPH100T PO
--- NOTE | 2018-05-24 00:06 | PHYS DOC ---
Past Medical History Past Medical History: Alcoholism, Depression, Hypertension, Hyperthyroid Additional Past Medical Histor: ALCOHOL ABUSE, SUBSTANCE ABUSE Past Surgical History: Additional Past Surgical Histo: THYROID ABLASION Alcohol Use: Heavy Drug Use: Marijuana, Opiates Adult General Chief Complaint Chief Complaint: SUICDAL IDEATION [facility] Patient is a 27 year old female who presents with self-inflicted cuts to her thighs and chest status post oozing her job today with alcohol consumption and depression. Patient states that she is depressed and has no suicide ideation at this time but lost her job and therefore started cutting her inner thighs and her chest. CUTS are superficial and did not require any suturing. Patient was brought in by her boyfriend who stated that he was done and when she was discharged she would not come pick her up. He denies any history of patient previously being admitted voluntarily or involuntarily for any psychiatric reasons and she is not followed by any psychiatrist although she is on an antidepressant. He also reports that she does go to a support group occasionally but he believes that is possibly for drug addiction. Turgor patient denies suicidal ideation at this time but just states that she is depressed. She also states she does have a history of cutting. Also states she stubbed her right great toe 2 days ago and is concerned that it might be broken. Agent with a history of anxiety, depression and borderline personality Mental health business consult came in later also ascertained from the patient that she had been admitted both in 2017 and 2018 for drinking Drano apparently [ these episodes that also involves some self-inflicted cutting]. Also per mental health business consult patient refused to agree to a contract for safety Review of Systems Review of Systems Constitutional: Denies fever or chills [] Eyes: Denies change in visual acuity, redness, or eye pain [] HENT: Denies nasal congestion or sore throat [] Respiratory: Denies cough or shortness of breath [] Cardiovascular: No additional information not addressed in [facility] [] GI: Denies abdominal pain, nausea, vomiting, bloody stools or diarrhea [] : Denies dysuria or hematuria [] Musculoskeletal: Denies back pain or joint pain [] Integument: Denies rash or skin lesions, positive for laceration/abrasion [] Neurologic: Denies headache, focal weakness or sensory changes [] Endocrine: Denies polyuria or polydipsia [] All other systems were reviewed and found to be within normal limits, except as documented in this note. Current Medications Current Medications Current Medications Medications (Trade) Dose Ordered Sig/Brad Start Time Stop Time Status Last Admin Dose Admin Ibuprofen (Motrin) 800 mg 1X ONCE 05/24/18 03:00 05/24/18 03:01 DC Sodium Chloride 1,000 ml @ 1,000 mls/hr 1X ONCE 05/24/18 00:30 05/24/18 01:29 DC 05/24/18 00:22 1,000 MLS/HR Allergies Allergies Allergies Coded Allergies Type Severity Reaction Last Updated Verified No Known Drug Allergies 12/07/15 No Physical Exam Physical Exam Constitutional: Well developed, well nourished, no acute distress, non-toxic appearance. [] HENT: Normocephalic, atraumatic, bilateral external ears normal, oropharynx moist, no oral exudates, nose normal. [] Eyes: PERRLA, EOMI, conjunctiva normal, no discharge. [] Neck: Normal range of motion, no tenderness, supple, no stridor. [] Cardiovascular:Heart rate regular rhythm, no murmur [] Lungs & Thorax: Bilateral breath sounds clear to auscultation [] Abdomen: Bowel sounds normal, soft, no tenderness, no masses, no pulsatile masses. [] Skin: Warm, dry, no erythema, no rash. Patient does have superficial abrasions to the inner thighs bilaterally left greater than right as well as to the left upper chest region. She also has multiple contusions to her lower extremities are very size in various stages of healing. Patient also has a bruise to the medial aspect of her right great toe.[] Back: No tenderness, no CVA tenderness. [] Extremities: No tenderness, no cyanosis, no clubbing, ROM intact, no edema. [] Neurologic: Alert and oriented X 3, normal motor function, normal sensory function, no focal deficits noted. [] Psychologic: Affect normal, judgement normal, mood normal. [] Current Patient Data Vital Signs Vital Signs Date Time Temp Pulse Resp B/P (MAP) Pulse Ox O2 Delivery O2 Flow Rate FiO2 05/24/18 03:14 103 20 115/88 (97) 94 Nasal Cannula 2.0 05/23/18 23:47 98.5 98.5 Lab Values Laboratory Tests Test 05/24/18 00:04 05/24/18 00:10 05/24/18 00:15 Urine Collection Type Unknown Urine Color Yellow Urine Clarity Clear Urine pH 6.5 Urine Specific [place] <=1.005 Urine Protein Negative mg/dL (NEG-TRACE) Urine Glucose (UA) Negative mg/dL (NEG) Urine Ketones (Stick) Negative mg/dL (NEG) Urine Blood Negative (NEG) Urine Nitrite Negative (NEG) Urine Bilirubin Negative (NEG) Urine Urobilinogen Dipstick 0.2 mg/dL (0.2 mg/dL) Urine Leukocyte Esterase Negative (NEG) Urine RBC 0 /HPF (0-2) Urine WBC 1-4 /HPF (0-4) Urine Squamous Epithelial Cells Few /LPF Urine Bacteria 0 /HPF (0-FEW) Urine Test Negative (NEG) Urine Opiates Screen Pos (NEG) Urine Methadone Screen Neg (NEG) Urine Barbiturates Neg (NEG) Urine Phencyclidine Screen Neg (NEG) Urine Amphetamine/Methamphetamine Neg (NEG) Urine Benzodiazepines Screen Pos (NEG) Urine Cocaine Screen Neg (NEG) Urine Cannabinoids Screen Neg (NEG) Urine Ethyl Alcohol Pos (NEG) POC Urine HCG, Qualitative Hcg negative (Negative) White Blood Count 8.7 x10^3/uL (4.0-11.0) Red Blood Count 4.17 x10^6/uL (3.50-5.40) Hemoglobin 14.2 g/dL (12.0-15.5) Hematocrit 40.3 % (36.0-47.0) Mean Corpuscular Volume 97 fL (79-100) Mean Corpuscular Hemoglobin 34 pg (25-35) Mean Corpuscular Hemoglobin Concent 35 g/dL (31-37) Red Cell Distribution Width 16.2 % (11.5-14.5) H Platelet Count 182 x10^3/uL (140-400) Neutrophils (%) (Auto) 53 % (31-73) Lymphocytes (%) (Auto) 35 % (24-48) Monocytes (%) (Auto) 6 % (0-9) Eosinophils (%) (Auto) 5 % (0-3) H Basophils (%) (Auto) 1 % (0-3) Neutrophils # (Auto) 4.6 x10^3uL (1.8-7.7) Lymphocytes # (Auto) 3.0 x10^3/uL (1.0-4.8) Monocytes # (Auto) 0.5 x10^3/uL (0.0-1.1) Eosinophils # (Auto) 0.5 x10^3/uL (0.0-0.7) Basophils # (Auto) 0.1 x10^3/uL (0.0-0.2) Sodium Level 140 mmol/L (136-145) Potassium Level 4.0 mmol/L (3.5-5.1) Chloride Level 101 mmol/L (98-107) Carbon Dioxide Level 26 mmol/L (21-32) Anion Gap 13 (6-14) Blood Urea Nitrogen 9 mg/dL (7-20) Creatinine 0.7 mg/dL (0.6-1.0) Estimated GFR (Cockcroft-Gault) 99.6 BUN/Creatinine Ratio 13 (6-20) Glucose Level 119 mg/dL (70-99) H Calcium Level 10.3 mg/dL (8.5-10.1) H Magnesium Level 1.4 mg/dL (1.8-2.4) L Total Bilirubin 0.3 mg/dL (0.2-1.0) Aspartate Amino Transferase (AST) 86 U/L (15-37) H Alanine Aminotransferase (ALT) 59 U/L (14-59) Alkaline Phosphatase 70 U/L (46-116) Total Protein 7.8 g/dL (6.4-8.2) Albumin 3.6 g/dL (3.4-5.0) Albumin/Globulin Ratio 0.9 (1.0-1.7) L Ethyl Alcohol Level 117 mg/dL (0-10) H Laboratory Tests 05/24/18 00:15 Laboratory Tests 05/24/18 00:15 EKG EKG [] Radiology/Procedures Radiology/Procedures [facility] [address] [place], [place] [id number] IMAGING REPORT Signed PATIENT: JAVON LINARES ACCOUNT: [id number] : 1990 LOCATION: ER AGE: 27 SEX: F EXAM STATUS: REG ER ORD. PHYSICIAN: NELA DEVLIN MD REASON: trauma PROCEDURE: TOES RIGHT Right toes 4 views: Reason for examination: Pain after hitting toes. No acute fracture or dislocation is seen. The bone density is normal. No abnormal periosteal reaction is seen. Joint spaces are maintained. IMPRESSION: No acute bony abnormality at the right toes. Electronically signed by: Kailey Zendejas MD (05/24/2018 2:56 AM) [facility] DICTATED and SIGNED BY: KAILEY ZENDEJAS MD DATE: 05/24/18 0254 Course & Med Decision Making Course & Med Decision Making Pertinent Labs and Imaging studies reviewed. (See chart for details) She was accepted at [address] [facility] [address] Talbert [] Dragon Disclaimer Dragon Disclaimer This electronic medical record was generated, in whole or in part, using a voice recognition dictation system. Departure Departure Impression: Primary Impression: Suicidal ideation Additional Impressions: Depression Deliberate self-cutting Disposition: 65 XFER TO PSYCH HOSP/UNIT ([facility] [place] to Dr Talbert) Condition: STABLE Referrals: JANUARY RIZZO MD (PCP) Problem Qualifiers NELA DEVLIN MD May 24, 2018 00:06
[2018-05-24 00:18] LABS: BILIRUBIN,URINE NEGATIVE (NEG); CLARITY,URINE CLEAR; COLOR,URINE YELLOW; NITRITE,URINE NEGATIVE (NEG); PH,URINE 6.5; PROTEIN,URINE NEGATIVE (NEG-TRACE); UROBILINOGEN,URINE 0.2 mg/dL (0.2 mg/dL)
[2018-05-24 00:24] LABS: BASO # 0.1 x10^3/uL (0.0-0.2); BASO % 1 % (0-3); EOS # 0.5 x10^3/uL (0.0-0.7); EOS % 5 % (0-3); HEMATOCRIT 40.3 % (36.0-47.0); HEMOGLOBIN 14.2 g/dL (12.0-15.5); LYMPH % 35 % (24-48); MEAN CORPUSCULAR HEMOGLOBIN 34 pg (25-35); MEAN CORPUSCULAR HGB CONC 35 g/dL (31-37); MEAN CORPUSCULAR VOLUME 97 fL (79-100); MONO # 0.5 x10^3/uL (0.0-1.1); MONO % 6 % (0-9); NEUT # 4.6 x10^3uL (1.8-7.7); NEUT % 53 % (31-73); PLATELET COUNT 182 x10^3/uL (140-400); RED BLOOD COUNT 4.17 x10^6/uL (3.50-5.40); RED CELL DISTRIBUTION WIDTH 16.2 % (11.5-14.5); WHITE BLOOD COUNT 8.7 x10^3/uL (4.0-11.0)
[2018-05-24 00:25] LABS: BARBITURATES NEG (NEG); BENZODIAZEPINES POS (NEG); CANNABINOIDS NEG (NEG); COCAINE NEG (NEG); METHADONE NEG (NEG); OPIATES POS (NEG); PHENCYCLIDINE NEG (NEG)
[2018-05-24 00:27] LABS: AMPHETAMINE/METHAMPHETAMINE NEG (NEG)
[2018-05-24 00:29] LABS: U PREG PATIENT NEGATIVE (NEG)
[2018-05-24] MEDS ORDERED: IV NORMAL SALINE 1000ML BAG 1,000 ML IV ONE (00:30)
[2018-05-24 00:32] LABS: BACTERIA,URINE 0 /HPF (0-FEW); RBC,URINE 0 /HPF (0-2); SQUAMOUS EPITHELIAL CELL,UR FEW /LPF
[2018-05-24 00:33] LABS: CALCIUM 10.3 mg/dL (8.5-10.1); CREATININE 0.7 mg/dL (0.6-1.0); GFR 99.6
[2018-05-24 00:38] LABS: ALBUMIN 3.6 g/dL (3.4-5.0); ALBUMIN/GLOBULIN RATIO 0.9 (1.0-1.7); MAGNESIUM 1.4 mg/dL (1.8-2.4); TOTAL BILIRUBIN 0.3 mg/dL (0.2-1.0); TOTAL PROTEIN 7.8 g/dL (6.4-8.2)
--- NOTE | 2018-05-24 02:59 | RAD ---
Right toes 4 views: Reason for examination: Pain after hitting toes. No acute fracture or dislocation is seen. The bone density is normal. No abnormal periosteal reaction is seen. Joint spaces are maintained. IMPRESSION: No acute bony abnormality at the right toes. Electronically signed by: aKiley Hdez MD (05/24/2018 2:56 AM) [facility]
[2018-05-24] MEDS ORDERED: IBUPROFEN 400 MG TABLET. PO ONE (03:00)
[2018-05-24 06:02] VITALS: BP 124/66
== END 2018-05-24 08:25 ==
LOC: ER 23:37
DX: S90.111A Contusion of right great toe without damage to nail, initial encounter (principal); S70.312A Abrasion, left thigh, initial encounter; S70.311A Abrasion, right thigh, initial encounter; S20.312A Abrasion of left front wall of thorax, initial encounter; R45.851 Suicidal ideations; I10 Essential (primary) hypertension; F10.20 Alcohol dependence, uncomplicated; Y90.9 Presence of alcohol in blood, level not specified; F32.9 Major depressive disorder, single episode, unspecified; X78.8XXA Intentional self-harm by other sharp object, initial encounter; Y93.89 Activity, other specified; Y92.89 Other specified places as the place of occurrence of the external cause; Y99.8 Other external cause status
CPT/HCPCS: 36415; 73660; 80053; 80307; 81001; 81025; 83735; 85025; 99285; G0480; J7030; G0479

== ENCOUNTER → 2018-06-06 | Outpatient (CLI) | payer OTHER ==
[2018-05-24 06:02] VITALS: BP 124/66
[2018-06-06 12:58] LABS: BASO % 1 % (0-3); EOS # 0.1 x10^3/uL (0.0-0.7); EOS % 1 % (0-3); HEMATOCRIT 41.6 % (36.0-47.0); HEMOGLOBIN 14.6 g/dL (12.0-15.5); LYMPH % 25 % (24-48); MEAN CORPUSCULAR HEMOGLOBIN 34 pg (25-35); MEAN CORPUSCULAR HGB CONC 35 g/dL (31-37); MEAN CORPUSCULAR VOLUME 98 fL (79-100); MONO # 0.3 x10^3/uL (0.0-1.1); MONO % 9 % (0-9); NEUT # 2.5 x10^3uL (1.8-7.7); NEUT % 64 % (31-73); PLATELET COUNT 205 x10^3/uL (140-400); RED BLOOD COUNT 4.25 x10^6/uL (3.50-5.40)
[2018-06-06 13:05] LABS: ALBUMIN 3.9 g/dL (3.4-5.0); ALBUMIN/GLOBULIN RATIO 0.9 (1.0-1.7); CALCIUM 9.3 mg/dL (8.5-10.1); CREATININE 0.7 mg/dL (0.6-1.0); GFR 98.9; POTASSIUM 3.5 mmol/L (3.5-5.1); TOTAL BILIRUBIN 0.9 mg/dL (0.2-1.0); TOTAL PROTEIN 8.2 g/dL (6.4-8.2)
[2018-06-06 13:21] LABS: FREE T4 0.75 ng/dL (0.76-1.46); THYROID STIM HORMONE (TSH) 1.134 uIU/mL (0.358-3.74)
== END | disposition home or self-care (01) ==
LOC: LAB 12:32
PROVIDERS: ATTEND Family Medicine
DX: E03.9 Hypothyroidism, unspecified (principal)
CPT/HCPCS: 36415; 80053; 84439; 84443; 85025

== ENCOUNTER 2018-07-16 13:14 | Emergency (ER) | payer OTHER ==
[~2018-07-16] VITALS: Ht 167.6 cm; Wt 90.7 kg
[~2018-07-16 13:14] MED LIST changes: -OXYC-323 PO; -OXYC-328 PO; +OXYC1TAB15 PO; +OXYC1TAB22 PO
[2018-07-16 13:32] VITALS: BP 174/98
--- NOTE | 2018-07-16 14:01 | PHYS DOC ---
Past Medical History Past Medical History: Other Additional Past Medical Histor: prescription opiod abuse Past Surgical History: Additional Past Surgical Histo: THYROID ABLATION, D&C Smoking: Cigarettes, 1 Pack Per Day Alcohol Use: None Drug Use: Opiates Adult General Chief Complaint Chief Complaint: TOE PROBLEM HPI HPI Patient is a 28 year old female who presents to the emergency department with complaints of right fifth toe, and right foot pain and bruising after twisting her foot while going up some steps 2 days ago. She states that she took 400 mg of ibuprofen at 8:00 this morning with no relief of her symptoms. Patient reports that the pain increases when she bears weight. Currently, she rates her pain as 8 out of 10 on the pain scale. She reports a past medical history of opiate abuse, surgical history of a and a D&C, and states that she is a smoker. Review of Systems Review of Systems Musculoskeletal: See HPI Integument: See HPI Neurologic: Denies headache, focal weakness or sensory changes [] All other systems were reviewed and found to be within normal limits, except as documented in this note. Current Medications Current Medications Current Medications Medications (Trade) Dose Ordered Sig/Brad Start Time Stop Time Status Last Admin Dose Admin Ibuprofen (Motrin) 600 mg 1X ONCE 07/16/18 14:15 07/16/18 14:16 DC 07/16/18 14:15 600 MG Allergies Allergies Allergies Coded Allergies Type Severity Reaction Last Updated Verified No Known Drug Allergies 12/07/15 No Physical Exam Physical Exam Constitutional: Well developed, well nourished, no acute distress, non-toxic appearance. [] HENT: Normocephalic, atraumatic, bilateral external ears normal, nose normal. [] Eyes: conjunctiva normal, no discharge. [] Neck: Normal range of motion Skin: Warm, dry, no erythema; 2 scabbed abrasions noted to top of right foot, no bleeding. [] Extremities: R 5th toe and lateral foot tenderness to palpation with bruising noted, no cyanosis, no clubbing, no edema; pt did not tolerate ROM testing of R foot and toes Neurologic: Alert and oriented X 3, normal motor function, normal sensory function, no focal deficits noted. [] Psychologic: Affect normal, judgement normal, mood normal. [] Current Patient Data Vital Signs Vital Signs Date Time Temp Pulse Resp B/P (MAP) Pulse Ox O2 Delivery O2 Flow Rate FiO2 07/16/18 13:32 98.4 107 18 174/98 (123) 99 Room Air 98.4 EKG EKG [] Radiology/Procedures Radiology/Procedures PROCEDURE: FOOT RIGHT 3V 3 view right foot 07/16/2018 CLINICAL INDICATION: 5th toe pain and bruising after fall. COMPARISON: Right toe radiograph 05/24/2018. FINDINGS: There is a nondisplaced fracture at the lateral proximal 5th phalanx with equivocal intra-articular extension to the PIP articulation. Soft tissue swelling about the 5th toe. Subtalar articulation is maintained. IMPRESSION: Nondisplaced 5th proximal phalanx fracture with equivocal intra-articular extension. [] Course & Med Decision Making Course & Med Decision Making Pertinent Labs and Imaging studies reviewed. (See chart for details) [] Dragon Disclaimer Dragon Disclaimer This electronic medical record was generated, in whole or in part, using a voice recognition dictation system. Departure Departure Impression: Primary Impression: Fracture of toe of right foot Additional Impression: Contusion of right foot including toes Disposition: 01 HOME, SELF-CARE Condition: STABLE Referrals: JANUARY RIZZO MD (PCP) GEE MORALES II, MD Patient Instructions: Theo Taping of Toes, Contusion, [id number], Toe Fracture, [id number] Additional Instructions: Fill prescription(s) and use as directed. Recommend application of ice, elevation, and rest of affected extremity. Wear the post op shoe that was placed until follow up appointment with your doctor or Dr. Morales. Return to the ER if your symptoms worsen. Scripts Ibuprofen (IBUPROFEN) 600 Mg Tablet 600 MG PO PRN Q6HRS PRN for INFLAMMATION for 5 Days, #20 TAB 0 Refills Prov: ALFA GTZ Chuck HOME CARE ATTENDANT 07/16/18 Problem Qualifiers Primary Impression: Fracture of toe of right foot Encounter type: initial encounter Toe: lesser toe Fracture type: closed Phalanx: proximal Fracture alignment: nondisplaced Qualified Codes: S92.514A - Nondisplaced fracture of proximal phalanx of right lesser toe(s), initial encounter for closed fracture Additional Impression: Contusion of right foot including toes Encounter type: initial encounter Qualified Codes: S90.31XA - Contusion of right foot, initial encounter; S90.121A - Contusion of right lesser toe(s) without damage to nail, initial encounter ALFA GTZ APRN Jul 16, 2018 14:01
[2018-07-16] MEDS: IBUPROFEN 600 MG TABLET. PO ONE (14:15)
--- NOTE | 2018-07-16 14:19 | RAD ---
3 view right foot 07/16/2018 CLINICAL INDICATION: 5th toe pain and bruising after fall. COMPARISON: Right toe radiograph 05/24/2018. FINDINGS: There is a nondisplaced fracture at the lateral proximal 5th phalanx with equivocal intra-articular extension to the PIP articulation. Soft tissue swelling about the 5th toe. Subtalar articulation is maintained. IMPRESSION: Nondisplaced 5th proximal phalanx fracture with equivocal intra-articular extension. Electronically signed by: Tavon Calderón MD (07/16/2018 2:15 PM) [id number]
[2018-07-16] MEDS ORDERED: IBUP-1007 PO (14:42)
== END 2018-07-16 14:51 | disposition home or self-care (01) ==
LOC: ER 13:14
DX: S92.514A Nondisplaced fracture of proximal phalanx of right lesser toe(s), initial encounter for closed fracture (principal); S90.31XA Contusion of right foot, initial encounter; F17.210 Nicotine dependence, cigarettes, uncomplicated; X50.0XXA Overexertion from strenuous movement or load, initial encounter; Y93.89 Activity, other specified; Y92.89 Other specified places as the place of occurrence of the external cause; Y99.8 Other external cause status
CPT/HCPCS: 73630; 99283

== ENCOUNTER 2018-09-22 08:52 | Observation (INO) | payer OTHER ==
[~2018-09-22] VITALS: Ht 167.6 cm; Wt 97.3 kg
[~2018-09-22 08:52] MED LIST changes: +AMOX1TAB61 PO; +ESCITALOPRAM OX20 MG PO; +IBUP-1007 PO; +NALT50TA PO; -NORG1TAB34 PO; +NORG1TAB70 PO; +QUET50TA5 PO
[2018-09-22] MEDS ORDERED: fentaNYL PF VIAL 100 MCG/2 ML VIAL IV ONE ×2 (10:15→12:00)
[2018-09-22 10:24] LABS: BASO # 0.1 x10^3/uL (0.0-0.2); BASO % 1 % (0-3); EOS # 0.2 x10^3/uL (0.0-0.7); EOS % 4 % (0-3); HEMATOCRIT 41.6 % (36.0-47.0); HEMOGLOBIN 13.9 g/dL (12.0-15.5); LYMPH # 1.3 x10^3/uL (1.0-4.8); LYMPH % 24 % (24-48); MEAN CORPUSCULAR HEMOGLOBIN 33 pg (25-35); MEAN CORPUSCULAR HGB CONC 33 g/dL (31-37); MEAN CORPUSCULAR VOLUME 99 fL (79-100); MONO # 0.5 x10^3/uL (0.0-1.1); MONO % 10 % (0-9); NEUT # 3.3 x10^3uL (1.8-7.7); NEUT % 62 % (31-73); PLATELET COUNT 299 x10^3/uL (140-400); RED CELL DISTRIBUTION WIDTH 18.2 % (11.5-14.5); WHITE BLOOD COUNT 5.3 x10^3/uL (4.0-11.0)
[2018-09-22] MEDS ORDERED: ONDANSETRON PF 4 MG/2 ML VIAL. IV ONE (10:30)
[2018-09-22] MEDS ORDERED: IOHEXOL 300 MG/ML 100ML VIAL. IV ONE (10:45)
[2018-09-22] MEDS ORDERED: IOHEXOL 240 MG/ML 50ML VIAL. PO ONE (10:45)
[2018-09-22] MEDS ORDERED: CONTRAST GIVEN. MC PRN (10:45)
[2018-09-22 11:08] LABS: BILIRUBIN,URINE MODERATE (NEG); CLARITY,URINE CLEAR; COLOR,URINE ORANGE; NITRITE,URINE NEGATIVE (NEG); PH,URINE 6.5; PROTEIN,URINE NEGATIVE (NEG-TRACE)
[2018-09-22 11:14] LABS: SQUAMOUS EPITHELIAL CELL,UR MANY /LPF
[2018-09-22 11:16] LABS: BACTERIA,URINE FEW /HPF (0-FEW); RBC,URINE OCC /HPF (0-2)
[2018-09-22 11:17] LABS: CALCIUM 8.6 mg/dL (8.5-10.1); CREATININE 0.7 mg/dL (0.6-1.0); GFR 98.9; POTASSIUM 4.4 mmol/L (3.5-5.1)
[2018-09-22 11:23] LABS: ALBUMIN 2.1 g/dL (3.4-5.0); ALBUMIN/GLOBULIN RATIO 0.5 (1.0-1.7); TOTAL BILIRUBIN 2.1 mg/dL (0.2-1.0); TOTAL PROTEIN 6.7 g/dL (6.4-8.2)
[2018-09-22] MEDS ORDERED: IV NORMAL SALINE 1000ML BAG 1,000 ML IV ONE (11:45)
--- NOTE | 2018-09-22 12:22 | RAD ---
CT STUDY OF THE ABDOMEN AND PELVIS WITH CONTRAST Clinical indications: Worsening abdominal pain following surgery for cholecystectomy. COMPARISON: September 15, 2018. TECHNIQUE: After IV infusion of 75 cc of Omnipaque 300, helical CT scanning of the abdomen and pelvis was performed. GI contrast was administered per mouth. PQRS compliance Statement One or more of the following individualized dose reduction techniques were utilized for this study: 1. Automated exposure control 2. Adjustment of the mA and/or kV according to patient size 3. Use of iterative reconstruction technique FINDINGS: Diffuse fatty infiltration of the liver is seen. There is a new finding of a small subcapsular hematoma of the anterior aspect of the medial segment left lobe of the liver. This measures 7 mm in thickness. No liver laceration is evident. The gallbladder is surgically absent. There is a small postoperative fluid collection within the gallbladder fossa measuring 2.9 cm. Surgical drainage catheter is seen within the anterior aspect of the upper abdomen and no fluid collection is seen in this area. No dilatation of the extra hepatic biliary tree is seen. No pancreatic mass or peripancreatic inflammation or pseudocyst is seen. The spleen measures 13.4 cm in length which is at the upper limits of normal. The spleen is homogeneous. No free fluid is seen around the spleen. Both kidneys are normal without hydronephrosis or hydroureter. There is some mild inflammatory change of the right upper quadrant of the abdomen just inferior to the liver and around the hepatic flexure and distal ascending colon and within the right retroperitoneum around the right kidney extending along the right ureter. This most likely represents postoperative edema. No fluid collection or abscess is seen here. There is a small amount of dependent free fluid within the pelvis. No dominant ovarian cyst or mass is seen today. No uterine mass or fibroid is seen. The urinary bladder is not abnormally distended. Urinary bladder wall is smooth. No focal aneurysmal dilatation of the abdominal aorta is seen. No adrenal mass is evident. No enlarged abdominal or pelvic lymphadenopathy is seen. Sigmoid diverticulosis is seen. The appendix is normal. The terminal ileum is unremarkable. No obstructive bowel pattern is seen. No free intraperitoneal air is seen. No lung base consolidation is evident. No lytic process is seen. There are healing subacute fractures of the anterolateral costal cartilage of the lower rib cage on both sides. This was seen previously. IMPRESSION: Since the previous study, the patient had a cholecystectomy. There is a small postoperative fluid collection within the gallbladder fossa. There is mild soft tissue inflammation of the right upper quadrant and the right retroperitoneum most likely postoperative in nature. Small amount of postoperative dependent free fluid is seen within the pelvis. No discrete abscess is evident otherwise. No bowel obstruction or free air is seen. There is new finding of a small subcapsular hematoma of the anterior aspect of the medial segment of the left lobe of the liver. No liver laceration is seen. Electronically signed by: Louie Mcfarlane MD (09/22/2018 12:17 PM) [id number]
[2018-09-22] MEDS ORDERED: fentaNYL PF VIAL 100 MCG/2 ML VIAL IV PRN (13:30)
[2018-09-22] MEDS ORDERED: ONDANSETRON PF 4 MG/2 ML VIAL. IV PRN (13:30)
[2018-09-22] MEDS: MORPHINE SULFATE 4 MG/ML VIAL. IV PRN ×2 (13:40→15:55)
[2018-09-22 14:20] VITALS: BP 125/84
[2018-09-22] MEDS: IV NORMAL SALINE 1000ML BAG 1,000 ML IV SCH ×2 (16:04→23:51)
--- NOTE | 2018-09-22 17:06 | PDOC1 ---
History and Physical Date of Admission Date of Admission DATE: 09/22/18 TIME: 17:00 Identification/Chief Complaint Chief Complaint LUQ pain Source Source: Chart review, Patient History of Present Illness History of Present Illness Marah is a 28 yo obese female smoker who is six days post op l/s andrew. She was having trouble with BM's and after sitting and straining to stool she developed increased left sided pain. CT at ED showed a small subcapsular hematoma. Past Medical History Cardiovascular: HTN Pulmonary: No pertinent hx GI: No pertinent hx Heme/Onc: No pertinent hx Hepatobiliary: No pertinent hx Psych: Anxiety, Addictions Musculoskeletal: low back pain Renal/: No pertinent hx Past Surgical History Past Surgical History: Cholecystectomy, Other Family History Family History: Hypertension Social History Smoke: <1 pack per day ALCOHOL: other Drugs: Marijuana Current Medications Current Medications Current Medications Fentanyl Citrate (Fentanyl 2ml Vial) 50 mcg 1X ONCE IV Last administered on 06/30at 10:43; Start 09/22/18 at 10:15; Stop 09/22/18 at 16:59; Status DC Ondansetron HCl (Zofran) 4 mg 1X ONCE IV Last administered on 09/22/18at 10:43 ; Start 09/22/18 at 10:30; Stop 09/22/18 at 10:31; Status DC Iohexol (Omnipaque 240 Mg/ml) 30 ml 1X ONCE PO Last administered on 09/22/18at 10:45; Start 09/22/18 at 10:45; Stop 09/22/18 at 10:46; Status DC Iohexol (Omnipaque 300 Mg/ml) 75 ml 1X ONCE IV Last administered on 09/22/18at 11:54; Start 09/22/18 at 10:45; Stop 09/22/18 at 10:46; Status DC Info (CONTRAST GIVEN -- Rx MONITORING) 1 each PRN DAILY PRN MC SEE COMMENTS; Start 09/22/18 at 10:45; Stop 09/24/18 at 10:44 Sodium Chloride 1,000 ml @ 1,000 mls/hr 1X ONCE IV Last administered on at 12:11; Start 09/22/18 at 11:45; Stop 09/22/18 at 12:44; Status DC Fentanyl Citrate (Fentanyl 2ml Vial) 50 mcg 1X ONCE IV Last administered on 06/30at 12:09; Start 09/22/18 at 12:00; Stop 09/22/18 at 12:01; Status DC Ondansetron HCl (Zofran) 4 mg PRN Q8HRS PRN IV NAUSEA/VOMITING Last administered on 09/22/18at 13:40; Start 09/22/18 at 13:30; Stop 09/23/18 at 13:29 Morphine Sulfate (Morphine Sulfate) 4 mg PRN Q2HR PRN IV PAIN Last administered on 09/22/18at 15:55; Start 09/22/18 at 13:30; Stop 09/22/18 at 16:59 ; Status DC Fentanyl Citrate (Fentanyl 2ml Vial) 50 mcg PRN Q1HR PRN IV PAIN; Start at 13:30; Stop 09/23/18 at 13:29 Sodium Chloride 1,000 ml @ 80 mls/hr [id number] IV Last administered on at 16:04; Start 09/22/18 at 13:23; Stop 09/23/18 at 13:22 Nicotine (Nicoderm Cq 21mg) 1 patch DAILY TD ; Start 09/23/18 at 09:00 Hydromorphone HCl (Dilaudid) 0.5 mg PRN Q3HRS PRN IV pain unrelievd by po meds ; Start 09/22/18 at 17:00 Oxycodone/ Acetaminophen (Percocet 7.5/ 325) 1 tab PRN Q4HRS PRN PO PAIN; Start 09/22/18 at 17:00 Active Scripts Active Augmentin 875-125 Tablet (Amoxicillin/Potassium Clav) 1 Each Tablet 1 Tab PO BID 4 Days Percocet 5-325 Mg Tablet (Oxycodone/Acetaminophen) 1 Each Tablet 1 Tab PO PRN Q4HRS PRN 5 Days Naltrexone Hcl 50 Mg Tablet 1 Tab PO DAILY 30 Days Seroquel (Quetiapine Fumarate) 50 Mg Tablet 1 Tab PO BID 30 Days Escitalopram Oxalate 20 Mg Tablet 1 Tab PO DAILY 30 Days Reported Levothyroxine Sodium 150 Mcg Tablet 1 Tab PO DAILY Allergies Allergies: Coded Allergies: No Known Drug Allergies (Unverified , 09/17/18) ROS Gastrointestinal: Yes Abdominal Pain Physical Exam General: Alert, No acute distress HEENT: Atraumatic Lungs: Normal air movement Heart: RRR Abdomen: Soft, Other (mildly TTP, LUQ, DELVIN drain with serous output) Vitals Vitals Vital Signs Date Time Temp Pulse Resp B/P (MAP) Pulse Ox O2 Delivery O2 Flow Rate FiO2 09/22/18 16:36 99 Room Air 09/22/18 14:20 97.8 74 16 125/84 (98) 97.8 Labs Labs Laboratory Tests Test 09/22/18 09:55 09/22/18 10:54 09/22/18 10:56 White Blood Count 5.3 x10^3/uL (4.0-11.0) Red Blood Count 4.20 x10^6/uL (3.50-5.40) Hemoglobin 13.9 g/dL (12.0-15.5) Hematocrit 41.6 % (36.0-47.0) Mean Corpuscular Volume 99 fL (79-100) Mean Corpuscular Hemoglobin 33 pg (25-35) Mean Corpuscular Hemoglobin Concent 33 g/dL (31-37) Red Cell Distribution Width 18.2 % (11.5-14.5) Platelet Count 299 x10^3/uL (140-400) Neutrophils (%) (Auto) 62 % (31-73) Lymphocytes (%) (Auto) 24 % (24-48) Monocytes (%) (Auto) 10 % (0-9) Eosinophils (%) (Auto) 4 % (0-3) Basophils (%) (Auto) 1 % (0-3) Neutrophils # (Auto) 3.3 x10^3uL (1.8-7.7) Lymphocytes # (Auto) 1.3 x10^3/uL (1.0-4.8) Monocytes # (Auto) 0.5 x10^3/uL (0.0-1.1) Eosinophils # (Auto) 0.2 x10^3/uL (0.0-0.7) Basophils # (Auto) 0.1 x10^3/uL (0.0-0.2) Lactic Acid Level 2.0 mmol/L (0.4-2.0) Bedside Urine HCG, Qualitative Hcg negative (Negative) Urine Collection Type Unknown Urine Color [place] Urine Clarity Clear Urine pH 6.5 Urine Specific [place] 1.020 Urine Protein Negative mg/dL (NEG-TRACE) Urine Glucose (UA) Negative mg/dL (NEG) Urine Ketones (Stick) Negative mg/dL (NEG) Urine Blood Negative (NEG) Urine Nitrite Negative (NEG) Urine Bilirubin Moderate (NEG) Urine Urobilinogen Dipstick 1.0 mg/dL (0.2 mg/dL) Urine Leukocyte Esterase Small (NEG) Urine RBC Occ /HPF (0-2) Urine WBC 1-4 /HPF (0-4) Urine Squamous Epithelial Cells Many /LPF Urine Renal Epithelial Cells Few /LPF Urine Bacteria Few /HPF (0-FEW) Urine Mucus Marked /LPF Sodium Level 136 mmol/L (136-145) Potassium Level 4.4 mmol/L (3.5-5.1) Chloride Level 102 mmol/L (98-107) Carbon Dioxide Level 25 mmol/L (21-32) Anion Gap 9 (6-14) Blood Urea Nitrogen 3 mg/dL (7-20) Creatinine 0.7 mg/dL (0.6-1.0) Estimated GFR (Cockcroft-Gault) 98.9 BUN/Creatinine Ratio 4 (6-20) Glucose Level 89 mg/dL (70-99) Calcium Level 8.6 mg/dL (8.5-10.1) Total Bilirubin 2.1 mg/dL (0.2-1.0) Aspartate Amino Transf (AST/SGOT) 156 U/L (15-37) Alanine Aminotransferase (ALT/SGPT) 115 U/L (14-59) Alkaline Phosphatase 146 U/L (46-116) Total Protein 6.7 g/dL (6.4-8.2) Albumin 2.1 g/dL (3.4-5.0) Albumin/Globulin Ratio 0.5 (1.0-1.7) Laboratory Tests Test 09/22/18 09:55 09/22/18 10:54 09/22/18 10:56 White Blood Count 5.3 x10^3/uL (4.0-11.0) Red Blood Count 4.20 x10^6/uL (3.50-5.40) Hemoglobin 13.9 g/dL (12.0-15.5) Hematocrit 41.6 % (36.0-47.0) Mean Corpuscular Volume 99 fL (79-100) Mean Corpuscular Hemoglobin 33 pg (25-35) Mean Corpuscular Hemoglobin Concent 33 g/dL (31-37) Red Cell Distribution Width 18.2 % (11.5-14.5) Platelet Count 299 x10^3/uL (140-400) Neutrophils (%) (Auto) 62 % (31-73) Lymphocytes (%) (Auto) 24 % (24-48) Monocytes (%) (Auto) 10 % (0-9) Eosinophils (%) (Auto) 4 % (0-3) Basophils (%) (Auto) 1 % (0-3) Neutrophils # (Auto) 3.3 x10^3uL (1.8-7.7) Lymphocytes # (Auto) 1.3 x10^3/uL (1.0-4.8) Monocytes # (Auto) 0.5 x10^3/uL (0.0-1.1) Eosinophils # (Auto) 0.2 x10^3/uL (0.0-0.7) Basophils # (Auto) 0.1 x10^3/uL (0.0-0.2) Lactic Acid Level 2.0 mmol/L (0.4-2.0) Bedside Urine HCG, Qualitative Hcg negative (Negative) Urine Collection Type Unknown Urine Color [place] Urine Clarity Clear Urine pH 6.5 Urine Specific [place] 1.020 Urine Protein Negative mg/dL (NEG-TRACE) Urine Glucose (UA) Negative mg/dL (NEG) Urine Ketones (Stick) Negative mg/dL (NEG) Urine Blood Negative (NEG) Urine Nitrite Negative (NEG) Urine Bilirubin Moderate (NEG) Urine Urobilinogen Dipstick 1.0 mg/dL (0.2 mg/dL) Urine Leukocyte Esterase Small (NEG) Urine RBC Occ /HPF (0-2) Urine WBC 1-4 /HPF (0-4) Urine Squamous Epithelial Cells Many /LPF Urine Renal Epithelial Cells Few /LPF Urine Bacteria Few /HPF (0-FEW) Urine Mucus Marked /LPF Sodium Level 136 mmol/L (136-145) Potassium Level 4.4 mmol/L (3.5-5.1) Chloride Level 102 mmol/L (98-107) Carbon Dioxide Level 25 mmol/L (21-32) Anion Gap 9 (6-14) Blood Urea Nitrogen 3 mg/dL (7-20) Creatinine 0.7 mg/dL (0.6-1.0) Estimated GFR (Cockcroft-Gault) 98.9 BUN/Creatinine Ratio 4 (6-20) Glucose Level 89 mg/dL (70-99) Calcium Level 8.6 mg/dL (8.5-10.1) Total Bilirubin 2.1 mg/dL (0.2-1.0) Aspartate Amino Transf (AST/SGOT) 156 U/L (15-37) Alanine Aminotransferase (ALT/SGPT) 115 U/L (14-59) Alkaline Phosphatase 146 U/L (46-116) Total Protein 6.7 g/dL (6.4-8.2) Albumin 2.1 g/dL (3.4-5.0) Albumin/Globulin Ratio 0.5 (1.0-1.7) Images Images CT done earlier is reviewed VTE Prophylaxis Ordered VTE Prophylaxis Devices: Yes VTE Pharmacological Prophylaxi: Contraindicated (subcapsular hematom) Assessment/Plan Assessment/Plan recent l/s andrew, ERCP increased abdominal pain small subcapsular hematoma obesity tobaccoism pain control observation recheck Hb in AM not sure hematoma is source of pain, will follow DAVID CLARK MD Sep 22, 2018 17:06
[2018-09-22] MEDS: oxyCODONE/APAP 7.5/325 1 TAB TABLET PO PRN ×2 (17:20→21:23)
[2018-09-22] MEDS: HYDROmorphone 2 MG/ML VIAL IV PRN ×2 (18:17→21:24)
[2018-09-22 19:43] VITALS: BP 131/77
[2018-09-22] MEDS ORDERED: AMOXICILLIN/K CLAV 875/125MG TABLET. PO SCH (21:00)
[2018-09-22] MEDS: diazePAM 5 MG TABLET PO PRN (21:22)
[2018-09-22] MEDS: QUEtiapine 25 MG TABLET. PO SCH (21:23)
[2018-09-22 22:51] VITALS: BP 128/82
[2018-09-23] MEDS: HYDROmorphone 2 MG/ML VIAL IV PRN ×5 (00:27→12:35)
[2018-09-23] MEDS: oxyCODONE/APAP 7.5/325 1 TAB TABLET PO PRN ×4 (01:45→15:02)
[2018-09-23 03:26] VITALS: BP 115/71
[2018-09-23] MEDS ORDERED: LEVOTHYROXINE 150 MCG TABLET PO SCH (06:00)
[2018-09-23] MEDS: diazePAM 5 MG TABLET PO PRN ×2 (06:36→16:38)
[2018-09-23 06:50] VITALS: BP 107/72
--- NOTE | 2018-09-23 08:13 | PDOC ---
PROGRESS NOTES Subjective Subjective Patient reports L UQ pain persists, taking IV and po pain meds frequently. Denies nausea, asking for diet to be advanced. Objective Objective Vital Signs Date Time Temp Pulse Resp B/P (MAP) Pulse Ox O2 Delivery O2 Flow Rate FiO2 09/23/18 06:50 97.5 75 16 107/72 (84) 94 Room Air 97.5 Intake and Output 09/23/18 07:00 Intake Total 2640 ml Output Total 100 ml Balance 2540 ml Intake Oral 1640 ml IV Total 1000 ml Output Drainage Total 100 ml Physical Exam Abdomen: Normal bowel sounds, Soft, Other (moderate TTP L UQ without guarding or rebound) Heart: Regular rate, No murmurs Extremities: No edema General: Alert, Oriented X3, No acute distress Lungs: Clear to auscultation Plan Plan of Care 1. L UQ pain, s/p lap andrew 09/16/18. CT yesterday showed only small subcapsular hepatic hematoma, difficult to know if this is the whole cause of the patient's pain. She reports she had been constipated but this resolved and pain worsened. Denies constipation now. Continue clears and IVF, diet per Dr Mayo. 2. elevated LFT's - continuing to improve from last hospitalization. Patient denies any ETOH recently. 3. UTI - treated last week, no abx presently indicated for this. Urine and blood cultures are pending. 4. chronic anxiety and depression - stable, continue her usual meds for this. Valium prn in hospital only, not on this chronically. 5. hx of narcotic abuse - need to consider a possible element of drug-seeking behavior in her pain complaints. 6. tobaccoism - Nicotine patch while she is hospitalized, not interested in smoking cessation. Comment Review of Relevant I have reviewed the following items geri (where applicable) has been applied. Labs Laboratory Tests Test 09/22/18 09:55 09/22/18 10:54 09/22/18 10:56 White Blood Count 5.3 x10^3/uL (4.0-11.0) Red Blood Count 4.20 x10^6/uL (3.50-5.40) Hemoglobin 13.9 g/dL (12.0-15.5) Hematocrit 41.6 % (36.0-47.0) Mean Corpuscular Volume 99 fL (79-100) Mean Corpuscular Hemoglobin 33 pg (25-35) Mean Corpuscular Hemoglobin Concent 33 g/dL (31-37) Red Cell Distribution Width 18.2 % (11.5-14.5) Platelet Count 299 x10^3/uL (140-400) Neutrophils (%) (Auto) 62 % (31-73) Lymphocytes (%) (Auto) 24 % (24-48) Monocytes (%) (Auto) 10 % (0-9) Eosinophils (%) (Auto) 4 % (0-3) Basophils (%) (Auto) 1 % (0-3) Neutrophils # (Auto) 3.3 x10^3uL (1.8-7.7) Lymphocytes # (Auto) 1.3 x10^3/uL (1.0-4.8) Monocytes # (Auto) 0.5 x10^3/uL (0.0-1.1) Eosinophils # (Auto) 0.2 x10^3/uL (0.0-0.7) Basophils # (Auto) 0.1 x10^3/uL (0.0-0.2) Lactic Acid Level 2.0 mmol/L (0.4-2.0) Bedside Urine HCG, Qualitative Hcg negative (Negative) Urine Collection Type Unknown Urine Color [place] Urine Clarity Clear Urine pH 6.5 Urine Specific [place] 1.020 Urine Protein Negative mg/dL (NEG-TRACE) Urine Glucose (UA) Negative mg/dL (NEG) Urine Ketones (Stick) Negative mg/dL (NEG) Urine Blood Negative (NEG) Urine Nitrite Negative (NEG) Urine Bilirubin Moderate (NEG) Urine Urobilinogen Dipstick 1.0 mg/dL (0.2 mg/dL) Urine Leukocyte Esterase Small (NEG) Urine RBC Occ /HPF (0-2) Urine WBC 1-4 /HPF (0-4) Urine Squamous Epithelial Cells Many /LPF Urine Renal Epithelial Cells Few /LPF Urine Bacteria Few /HPF (0-FEW) Urine Mucus Marked /LPF Sodium Level 136 mmol/L (136-145) Potassium Level 4.4 mmol/L (3.5-5.1) Chloride Level 102 mmol/L (98-107) Carbon Dioxide Level 25 mmol/L (21-32) Anion Gap 9 (6-14) Blood Urea Nitrogen 3 mg/dL (7-20) Creatinine 0.7 mg/dL (0.6-1.0) Estimated GFR (Cockcroft-Gault) 98.9 BUN/Creatinine Ratio 4 (6-20) Glucose Level 89 mg/dL (70-99) Calcium Level 8.6 mg/dL (8.5-10.1) Total Bilirubin 2.1 mg/dL (0.2-1.0) Aspartate Amino Transf (AST/SGOT) 156 U/L (15-37) Alanine Aminotransferase (ALT/SGPT) 115 U/L (14-59) Alkaline Phosphatase 146 U/L (46-116) Total Protein 6.7 g/dL (6.4-8.2) Albumin 2.1 g/dL (3.4-5.0) Albumin/Globulin Ratio 0.5 (1.0-1.7) Laboratory Tests Test 09/22/18 09:55 09/22/18 10:54 09/22/18 10:56 White Blood Count 5.3 x10^3/uL (4.0-11.0) Red Blood Count 4.20 x10^6/uL (3.50-5.40) Hemoglobin 13.9 g/dL (12.0-15.5) Hematocrit 41.6 % (36.0-47.0) Mean Corpuscular Volume 99 fL (79-100) Mean Corpuscular Hemoglobin 33 pg (25-35) Mean Corpuscular Hemoglobin Concent 33 g/dL (31-37) Red Cell Distribution Width 18.2 % (11.5-14.5) Platelet Count 299 x10^3/uL (140-400) Neutrophils (%) (Auto) 62 % (31-73) Lymphocytes (%) (Auto) 24 % (24-48) Monocytes (%) (Auto) 10 % (0-9) Eosinophils (%) (Auto) 4 % (0-3) Basophils (%) (Auto) 1 % (0-3) Neutrophils # (Auto) 3.3 x10^3uL (1.8-7.7) Lymphocytes # (Auto) 1.3 x10^3/uL (1.0-4.8) Monocytes # (Auto) 0.5 x10^3/uL (0.0-1.1) Eosinophils # (Auto) 0.2 x10^3/uL (0.0-0.7) Basophils # (Auto) 0.1 x10^3/uL (0.0-0.2) Lactic Acid Level 2.0 mmol/L (0.4-2.0) Bedside Urine HCG, Qualitative Hcg negative (Negative) Urine Collection Type Unknown Urine Color [place] Urine Clarity Clear Urine pH 6.5 Urine Specific [place] 1.020 Urine Protein Negative mg/dL (NEG-TRACE) Urine Glucose (UA) Negative mg/dL (NEG) Urine Ketones (Stick) Negative mg/dL (NEG) Urine Blood Negative (NEG) Urine Nitrite Negative (NEG) Urine Bilirubin Moderate (NEG) Urine Urobilinogen Dipstick 1.0 mg/dL (0.2 mg/dL) Urine Leukocyte Esterase Small (NEG) Urine RBC Occ /HPF (0-2) Urine WBC 1-4 /HPF (0-4) Urine Squamous Epithelial Cells Many /LPF Urine Renal Epithelial Cells Few /LPF Urine Bacteria Few /HPF (0-FEW) Urine Mucus Marked /LPF Sodium Level 136 mmol/L (136-145) Potassium Level 4.4 mmol/L (3.5-5.1) Chloride Level 102 mmol/L (98-107) Carbon Dioxide Level 25 mmol/L (21-32) Anion Gap 9 (6-14) Blood Urea Nitrogen 3 mg/dL (7-20) Creatinine 0.7 mg/dL (0.6-1.0) Estimated GFR (Cockcroft-Gault) 98.9 BUN/Creatinine Ratio 4 (6-20) Glucose Level 89 mg/dL (70-99) Calcium Level 8.6 mg/dL (8.5-10.1) Total Bilirubin 2.1 mg/dL (0.2-1.0) Aspartate Amino Transf (AST/SGOT) 156 U/L (15-37) Alanine Aminotransferase (ALT/SGPT) 115 U/L (14-59) Alkaline Phosphatase 146 U/L (46-116) Total Protein 6.7 g/dL (6.4-8.2) Albumin 2.1 g/dL (3.4-5.0) Albumin/Globulin Ratio 0.5 (1.0-1.7) Medications Current Medications Fentanyl Citrate (Fentanyl 2ml Vial) 50 mcg 1X ONCE IV Last administered on 06/30at 10:43; Start 09/22/18 at 10:15; Stop 09/22/18 at 16:59; Status DC Ondansetron HCl (Zofran) 4 mg 1X ONCE IV Last administered on 09/22/18at 10:43 ; Start 09/22/18 at 10:30; Stop 09/22/18 at 10:31; Status DC Iohexol (Omnipaque 240 Mg/ml) 30 ml 1X ONCE PO Last administered on 09/22/18at 10:45; Start 09/22/18 at 10:45; Stop 09/22/18 at 10:46; Status DC Iohexol (Omnipaque 300 Mg/ml) 75 ml 1X ONCE IV Last administered on 09/22/18at 11:54; Start 09/22/18 at 10:45; Stop 09/22/18 at 10:46; Status DC Info (CONTRAST GIVEN -- Rx MONITORING) 1 each PRN DAILY PRN MC SEE COMMENTS; Start 09/22/18 at 10:45; Stop 09/24/18 at 10:44 Sodium Chloride 1,000 ml @ 1,000 mls/hr 1X ONCE IV Last administered on at 12:11; Start 09/22/18 at 11:45; Stop 09/22/18 at 12:44; Status DC Fentanyl Citrate (Fentanyl 2ml Vial) 50 mcg 1X ONCE IV Last administered on 06/30at 12:09; Start 09/22/18 at 12:00; Stop 09/22/18 at 12:01; Status DC Ondansetron HCl (Zofran) 4 mg PRN Q8HRS PRN IV NAUSEA/VOMITING Last administered on 09/22/18at 13:40; Start 09/22/18 at 13:30; Stop 09/23/18 at 13:29 Morphine Sulfate (Morphine Sulfate) 4 mg PRN Q2HR PRN IV PAIN Last administered on 09/22/18at 15:55; Start 09/22/18 at 13:30; Stop 09/22/18 at 16:59 ; Status DC Fentanyl Citrate (Fentanyl 2ml Vial) 50 mcg PRN Q1HR PRN IV PAIN; Start at 13:30; Stop 09/23/18 at 13:29 Sodium Chloride 1,000 ml @ 80 mls/hr [id number] IV Last administered on at 23:51; Start 09/22/18 at 13:23; Stop 09/23/18 at 13:22 Nicotine (Nicoderm Cq 21mg) 1 patch DAILY TD ; Start 09/23/18 at 09:00 Hydromorphone HCl (Dilaudid) 0.5 mg PRN Q3HRS PRN IV pain unrelievd by po meds Last administered on 09/23/18at 06:34; Start 09/22/18 at 17:00 Oxycodone/ Acetaminophen (Percocet 7.5/ 325) 1 tab PRN Q4HRS PRN PO PAIN Last administered on 09/23/18 06:33; Start 09/22/18 at 17:00 Amoxicillin/ Clavulanate Potassium (Augmentin 875/ 125mg) 1 tab BID PO Last administered on 09/22/18at 21:22; Start 09/22/18 at 21:00 Citalopram Hydrobromide (CeleXA) 40 mg DAILY PO ; Start 09/23/18 at 09:00 Levothyroxine Sodium (Synthroid) 150 mcg DAILY06 PO Last administered on at 06:33; Start 09/23/18 at 06:00 Non-Formulary Medication (Naltrexone Hcl ) 1 tab DAILY PO ; Start 09/23/18 at 09 :00; Status UNV Quetiapine Fumarate (SEROquel) 50 mg BID PO Last administered on 09/22/18at 21: 23; Start 09/22/18 at 21:00 Diazepam (Valium) 5 mg PRN TID PRN PO ANXIETY Last administered on 09/23/18at 06 :36; Start 09/22/18 at 20:15 Active Scripts Active Augmentin 875-125 Tablet (Amoxicillin/Potassium Clav) 1 Each Tablet 1 Tab PO BID 4 Days Percocet 5-325 Mg Tablet (Oxycodone/Acetaminophen) 1 Each Tablet 1 Tab PO PRN Q4HRS PRN 5 Days Naltrexone Hcl 50 Mg Tablet 1 Tab PO DAILY 30 Days Seroquel (Quetiapine Fumarate) 50 Mg Tablet 1 Tab PO BID 30 Days Escitalopram Oxalate 20 Mg Tablet 1 Tab PO DAILY 30 Days Reported Levothyroxine Sodium 150 Mcg Tablet 1 Tab PO DAILY Vitals/I & O Vital Sign - Last 24 Hours 2/11/19 2/11/19 2/11/19 2/11/19 09:26 14:20 14:51 15:55 Temp 98.0 97.8 98.0 97.8 Pulse 87 74 Resp 18 16 B/P (MAP) 112/80 (91) 125/84 (98) Pulse Ox 97 99 99 O2 Delivery Room Air Room Air Room Air Room Air 09/22/18 09/22/18 09/22/18 09/22/18 16:36 17:20 18:17 19:43 Temp 98.2 98.2 Pulse 81 Resp 18 B/P (MAP) 131/77 (95) Pulse Ox 99 99 99 95 O2 Delivery Room Air Room Air Room Air Room Air 09/22/18 09/22/18 09/22/18 09/22/18 20:00 21:23 21:24 22:51 Temp 97.5 97.5 Pulse 74 Resp 17 17 18 B/P (MAP) 128/82 (97) Pulse Ox 95 95 94 O2 Delivery Room Air Room Air Room Air Room Air 09/23/18 09/23/18 09/23/18 09/23/18 00:27 00:57 01:45 02:45 Resp 18 18 18 Pulse Ox 96 96 96 O2 Delivery Room Air Room Air Room Air 09/23/18 09/23/18 09/23/18 09/23/18 03:26 03:40 04:10 06:33 Temp 97.5 97.5 Pulse 71 Resp 18 B/P (MAP) 115/71 (86) Pulse Ox 95 95 95 95 O2 Delivery Room Air Room Air Room Air Room Air 09/23/18 09/23/18 06:34 06:50 Temp 97.5 97.5 Pulse 75 Resp 16 B/P (MAP) 107/72 (84) Pulse Ox 95 94 O2 Delivery Room Air Room Air Intake and Output 09/22/18 09/22/18 09/23/18 15:00 23:00 07:00 Intake Total 1000 ml 640 ml 1000 ml Output Total 100 ml Balance 1000 ml 640 ml 900 ml JANUARY RIZZO MD Sep 23, 2018 08:13
--- NOTE | 2018-09-23 08:51 | CONS ---
DATE OF CONSULTATION: CHIEF COMPLAINT: Left upper quadrant pain. HISTORY OF PRESENT ILLNESS: The patient is a 28-year-old female, who underwent laparoscopic cholecystectomy by Dr. Thornton last week on 09/16/2018. She had acute cholecystitis at the time of surgery. She had been discharged to home, but returned to the Emergency Room yesterday, reporting increasing pain in the left upper quadrant. The pain seems to radiate to her back at times. There may have been some nausea associated with this but she did not had any emesis. A CT of the abdomen and pelvis was done in the ER, which showed a small subcapsular hematoma of the liver and the patient was admitted for further care. PAST MEDICAL HISTORY: Recent cholecystitis with cholelithiasis, chronic anxiety and depression, hypothyroidism, history of alcohol abuse, history of narcotic abuse, recent urinary tract infection, fatty liver. PAST SURGICAL HISTORY: Laparoscopic cholecystectomy on 09/16/2018, in 2008, thyroid surgeries in 2016. ALLERGIES: The patient has no known drug allergies. HOME MEDICATIONS: Naltrexone 50 mg daily, escitalopram 20 mg daily, Seroquel 50 mg b.i.d., levothyroxine 150 mcg daily. The patient was discharged on Augmentin 875mg for 5 days, but had completed this. Percocet 5/ 325 p.r.n., the patient was given a small amount of this at her discharge last week, but states that she ran out of this because the pain in her left upper quadrant was so severe, she was taking it for that. FAMILY HISTORY: Noncontributory. SOCIAL HISTORY: The patient is . She smokes cigarettes about 1 pack per day and is not interested in smoking cessation. She does have a history of excessive alcohol use, but states she has not drank any alcohol since her discharge last week. She has a history of narcotic abuse, but her urine drug screen was negative for narcotics at her admission last week. REVIEW OF SYSTEMS: The patient denies fever or chills. She denies cough, chest congestion or shortness of breath. She denies chest pain or palpitations. She feels the postoperative pain in the right upper quadrant of her abdomen is improving. She is still having a significant output from her surgical drain. She felt that she was constipated several days ago, but did take a Fleet's enema and had a bowel movement afterwards. She states she had another bowel movement yesterday, so does not feel constipated now. She denies dysuria or increased frequency. Her mood has been fairly good with her usual medications. She states that she has not had any alcohol since her discharge last week. PHYSICAL EXAMINATION: GENERAL: The patient is alert and oriented x 3, resting comfortably in bed, in no acute distress. HEENT: PERRL, EOMI, sclerae clear. Oropharynx: Mucous membranes moist. NECK: Supple, without lymphadenopathy. CHEST: Clear to auscultation. CARDIOVASCULAR: Regular rhythm without murmur. ABDOMEN: Soft, normoactive bowel sounds are present. There is moderate tenderness to palpation in the left upper quadrant without guarding or rebound. A moderate amount of serous fluid is in her drain. EXTREMITIES: Lower extremities are without edema. ASSESSMENT AND PLAN: 1. Left upper quadrant pain status post laparoscopic cholecystectomy last week. CT showed only a small subcapsular hepatic hematoma. It is difficult to know if this is the whole cause of the patient's pain, but no other abnormal findings were seen. She reports that she had been constipated, but this has resolved. She is tolerating a clear liquid diet and asking for her diet to be advanced. We will continue clears and IV fluid, further diet will be per Dr. Mayo's recommendations. 2. Elevated liver function tests. These are continuing to improve from her last hospitalization, they were thought to be a combination of the acute cholecystitis with possible retained common bile duct stone and fatty liver. The patient is encouraged to continue abstaining from any alcohol. 3. Urinary tract infection. This was treated last week. No antibiotics are presently indicated. Urine and blood cultures are pending from this admission. 4. Chronic anxiety and depression. This is stable. Continue her usual medications. 5. History of narcotic abuse. The patient had been doing fairly well with this prior to hospitalization last week. Unfortunately, need to consider a possible element of drug seeking behavior in her present pain complaints. She is taking a significant amount of both oral and IV pain medication at this time. 6. Tobaccoism. We will use a nicotine patch while she is hospitalized. She is not interested in smoking cessation. 7. Hypothyroidism. Recent lab was good. Continue her usual dose. Thank you for this consult, Dr. Mayo, we are happy to see this patient with you. JANUARY RIZZO MD DR: Murray JOB#: [id number] / [id number] CRISTINA
[2018-09-23] MEDS ORDERED: NON FORMULARY ITEM (Naltrexone Hcl 1 TAB) PO SCH (09:00)
[2018-09-23] MEDS ORDERED: CITALOPRAM 20 MG TABLET. PO SCH (09:00)
[2018-09-23] MEDS ORDERED: NICOTINE 21MG PATCH. TD SCH (09:00)
[2018-09-23] MEDS: QUEtiapine 25 MG TABLET. PO SCH (09:30)
[2018-09-23 09:33] LABS: BASO % 1 % (0-3); EOS # 0.1 x10^3/uL (0.0-0.7); EOS % 3 % (0-3); HEMATOCRIT 39.3 % (36.0-47.0); HEMOGLOBIN 12.9 g/dL (12.0-15.5); LYMPH # 1.1 x10^3/uL (1.0-4.8); LYMPH % 31 % (24-48); MEAN CORPUSCULAR HEMOGLOBIN 33 pg (25-35); MEAN CORPUSCULAR HGB CONC 33 g/dL (31-37); MEAN CORPUSCULAR VOLUME 101 fL (79-100); MONO # 0.4 x10^3/uL (0.0-1.1); MONO % 12 % (0-9); NEUT # 1.9 x10^3uL (1.8-7.7); NEUT % 53 % (31-73); PLATELET COUNT 199 x10^3/uL (140-400); RED BLOOD COUNT 3.88 x10^6/uL (3.50-5.40); RED CELL DISTRIBUTION WIDTH 17.9 % (11.5-14.5); WHITE BLOOD COUNT 3.5 x10^3/uL (4.0-11.0)
[2018-09-23 09:54] LABS: ALBUMIN 1.7 g/dL (3.4-5.0); DIRECT BILIRUBIN 1.3 mg/dL (0.0-0.2); TOTAL BILIRUBIN 1.9 mg/dL (0.2-1.0); TOTAL PROTEIN 5.7 g/dL (6.4-8.2)
[2018-09-23 10:01] LABS: PROTHROMBIN TIME PATIENT 13.9 SEC (11.7-14.0)
[2018-09-23 10:32] VITALS: BP 106/75
[2018-09-23] MEDS: IV NORMAL SALINE 1000ML BAG 1,000 ML IV SCH (12:34)
--- NOTE | 2018-09-23 13:21 | PDOC ---
SURGICAL PROGRESS NOTE Subjective still c/o pain using IV and po pain meds asking for more to eat Vital Signs Vital Signs Date Time Temp Pulse Resp B/P (MAP) Pulse Ox O2 Delivery O2 Flow Rate FiO2 09/23/18 10:50 Room Air 09/23/18 10:32 98.0 72 17 106/75 (85) 93 98.0 I&O Intake and Output 09/23/18 06:59 Intake Total 2640 ml Output Total 100 ml Balance 2540 ml Intake Oral 1640 ml IV Total 1000 ml Output Drainage Total 100 ml PATIENT HAS A HIGGINS: No Abdomen: Soft, No tenderness Labs Laboratory Tests Test 09/22/18 09:55 09/22/18 10:54 09/22/18 10:56 09/23/18 08:05 White Blood Count 5.3 x10^3/uL (4.0-11.0) 3.5 x10^3/uL (4.0-11.0) Red Blood Count 4.20 x10^6/uL (3.50-5.40) 3.88 x10^6/uL (3.50-5.40) Hemoglobin 13.9 g/dL (12.0-15.5) 12.9 g/dL (12.0-15.5) Hematocrit 41.6 % (36.0-47.0) 39.3 % (36.0-47.0) Mean Corpuscular Volume 99 fL (79-100) 101 fL (79-100) Mean Corpuscular Hemoglobin 33 pg (25-35) 33 pg (25-35) Mean Corpuscular Hemoglobin Concent 33 g/dL (31-37) 33 g/dL (31-37) Red Cell Distribution Width 18.2 % (11.5-14.5) 17.9 % (11.5-14.5) Platelet Count 299 x10^3/uL (140-400) 199 x10^3/uL (140-400) Neutrophils (%) (Auto) 62 % (31-73) 53 % (31-73) Lymphocytes (%) (Auto) 24 % (24-48) 31 % (24-48) Monocytes (%) (Auto) 10 % (0-9) 12 % (0-9) Eosinophils (%) (Auto) 4 % (0-3) 3 % (0-3) Basophils (%) (Auto) 1 % (0-3) 1 % (0-3) Neutrophils # (Auto) 3.3 x10^3uL (1.8-7.7) 1.9 x10^3uL (1.8-7.7) Lymphocytes # (Auto) 1.3 x10^3/uL (1.0-4.8) 1.1 x10^3/uL (1.0-4.8) Monocytes # (Auto) 0.5 x10^3/uL (0.0-1.1) 0.4 x10^3/uL (0.0-1.1) Eosinophils # (Auto) 0.2 x10^3/uL (0.0-0.7) 0.1 x10^3/uL (0.0-0.7) Basophils # (Auto) 0.1 x10^3/uL (0.0-0.2) 0.0 x10^3/uL (0.0-0.2) Lactic Acid Level 2.0 mmol/L (0.4-2.0) Bedside Urine HCG, Qualitative Hcg negative (Negative) Urine Collection Type Unknown Urine Color [place] Urine Clarity Clear Urine pH 6.5 Urine Specific [place] 1.020 Urine Protein Negative mg/dL (NEG-TRACE) Urine Glucose (UA) Negative mg/dL (NEG) Urine Ketones (Stick) Negative mg/dL (NEG) Urine Blood Negative (NEG) Urine Nitrite Negative (NEG) Urine Bilirubin Moderate (NEG) Urine Urobilinogen Dipstick 1.0 mg/dL (0.2 mg/dL) Urine Leukocyte Esterase Small (NEG) Urine RBC Occ /HPF (0-2) Urine WBC 1-4 /HPF (0-4) Urine Squamous Epithelial Cells Many /LPF Urine Renal Epithelial Cells Few /LPF Urine Bacteria Few /HPF (0-FEW) Urine Mucus Marked /LPF Sodium Level 136 mmol/L (136-145) Potassium Level 4.4 mmol/L (3.5-5.1) Chloride Level 102 mmol/L (98-107) Carbon Dioxide Level 25 mmol/L (21-32) Anion Gap 9 (6-14) Blood Urea Nitrogen 3 mg/dL (7-20) Creatinine 0.7 mg/dL (0.6-1.0) Estimated GFR (Cockcroft-Gault) 98.9 BUN/Creatinine Ratio 4 (6-20) Glucose Level 89 mg/dL (70-99) Calcium Level 8.6 mg/dL (8.5-10.1) Total Bilirubin 2.1 mg/dL (0.2-1.0) 1.9 mg/dL (0.2-1.0) Aspartate Amino Transf (AST/SGOT) 156 U/L (15-37) 173 U/L (15-37) Alanine Aminotransferase (ALT/SGPT) 115 U/L (14-59) 90 U/L (14-59) Alkaline Phosphatase 146 U/L (46-116) 113 U/L (46-116) Total Protein 6.7 g/dL (6.4-8.2) 5.7 g/dL (6.4-8.2) Albumin 2.1 g/dL (3.4-5.0) 1.7 g/dL (3.4-5.0) Albumin/Globulin Ratio 0.5 (1.0-1.7) Prothrombin Time 13.9 SEC (11.7-14.0) Prothromb Time International Ratio 1.1 (0.8-1.1) Direct Bilirubin 1.3 mg/dL (0.0-0.2) Laboratory Tests Test 09/23/18 08:05 White Blood Count 3.5 x10^3/uL (4.0-11.0) Red Blood Count 3.88 x10^6/uL (3.50-5.40) Hemoglobin 12.9 g/dL (12.0-15.5) Hematocrit 39.3 % (36.0-47.0) Mean Corpuscular Volume 101 fL (79-100) Mean Corpuscular Hemoglobin 33 pg (25-35) Mean Corpuscular Hemoglobin Concent 33 g/dL (31-37) Red Cell Distribution Width 17.9 % (11.5-14.5) Platelet Count 199 x10^3/uL (140-400) Neutrophils (%) (Auto) 53 % (31-73) Lymphocytes (%) (Auto) 31 % (24-48) Monocytes (%) (Auto) 12 % (0-9) Eosinophils (%) (Auto) 3 % (0-3) Basophils (%) (Auto) 1 % (0-3) Neutrophils # (Auto) 1.9 x10^3uL (1.8-7.7) Lymphocytes # (Auto) 1.1 x10^3/uL (1.0-4.8) Monocytes # (Auto) 0.4 x10^3/uL (0.0-1.1) Eosinophils # (Auto) 0.1 x10^3/uL (0.0-0.7) Basophils # (Auto) 0.0 x10^3/uL (0.0-0.2) Prothrombin Time 13.9 SEC (11.7-14.0) Prothromb Time International Ratio 1.1 (0.8-1.1) Total Bilirubin 1.9 mg/dL (0.2-1.0) Direct Bilirubin 1.3 mg/dL (0.0-0.2) Aspartate Amino Transf (AST/SGOT) 173 U/L (15-37) Alanine Aminotransferase (ALT/SGPT) 90 U/L (14-59) Alkaline Phosphatase 113 U/L (46-116) Total Protein 5.7 g/dL (6.4-8.2) Albumin 1.7 g/dL (3.4-5.0) Assessment/Plan s/p l/s andrew, ERCP labs improved explained need to stop IV pain meds advance to full liquids possible home later today appreciate Dr Parson's help DAVID CLARK MD Sep 23, 2018 13:21
--- NOTE | 2018-09-23 14:00 | NUR ---
Removed patient DELVIN drain per Dr. Mayo order. Moderate amount of yellow drainage on gauze pads. 30mL of yellow drainage noted in bulb. Pt tolerated without complaints. Will continue to monitor.
[2018-09-23 14:18] VITALS: BP 114/79
--- NOTE | 2018-09-23 14:29 | NUR ---
SW following pt for anticipated dc needs. Chart reviewed. Pt lives at home with significant other and on room air. No SW needs indicated at this time.
--- NOTE | 2018-09-23 16:28 | PDOC3 ---
Discharge Summary Visit Information Date of Admission: Sep 22, 2018 Date of Discharge: Sep 23, 2018 Admitting Diagnosis Comment: subcapsular hematoma Final Diagnosis same Brief Hospital Course Allergies Allergies Coded Allergies Type Severity Reaction Last Updated Verified No Known Drug Allergies 09/17/18 No Vital Signs Vital Signs Date Time Temp Pulse Resp B/P (MAP) Pulse Ox O2 Delivery O2 Flow Rate FiO2 09/23/18 14:18 97.8 89 16 114/79 (91) 96 Room Air 97.8 Lab Results Laboratory Tests Test 09/22/18 09:55 09/22/18 10:54 09/22/18 10:56 09/23/18 08:05 White Blood Count 5.3 x10^3/uL (4.0-11.0) 3.5 x10^3/uL (4.0-11.0) Red Blood Count 4.20 x10^6/uL (3.50-5.40) 3.88 x10^6/uL (3.50-5.40) Hemoglobin 13.9 g/dL (12.0-15.5) 12.9 g/dL (12.0-15.5) Hematocrit 41.6 % (36.0-47.0) 39.3 % (36.0-47.0) Mean Corpuscular Volume 99 fL (79-100) 101 fL (79-100) Mean Corpuscular Hemoglobin 33 pg (25-35) 33 pg (25-35) Mean Corpuscular Hemoglobin Concent 33 g/dL (31-37) 33 g/dL (31-37) Red Cell Distribution Width 18.2 % (11.5-14.5) 17.9 % (11.5-14.5) Platelet Count 299 x10^3/uL (140-400) 199 x10^3/uL (140-400) Neutrophils (%) (Auto) 62 % (31-73) 53 % (31-73) Lymphocytes (%) (Auto) 24 % (24-48) 31 % (24-48) Monocytes (%) (Auto) 10 % (0-9) 12 % (0-9) Eosinophils (%) (Auto) 4 % (0-3) 3 % (0-3) Basophils (%) (Auto) 1 % (0-3) 1 % (0-3) Neutrophils # (Auto) 3.3 x10^3uL (1.8-7.7) 1.9 x10^3uL (1.8-7.7) Lymphocytes # (Auto) 1.3 x10^3/uL (1.0-4.8) 1.1 x10^3/uL (1.0-4.8) Monocytes # (Auto) 0.5 x10^3/uL (0.0-1.1) 0.4 x10^3/uL (0.0-1.1) Eosinophils # (Auto) 0.2 x10^3/uL (0.0-0.7) 0.1 x10^3/uL (0.0-0.7) Basophils # (Auto) 0.1 x10^3/uL (0.0-0.2) 0.0 x10^3/uL (0.0-0.2) Lactic Acid Level 2.0 mmol/L (0.4-2.0) Bedside Urine HCG, Qualitative Hcg negative (Negative) Urine Collection Type Unknown Urine Color [place] Urine Clarity Clear Urine pH 6.5 Urine Specific [place] 1.020 Urine Protein Negative mg/dL (NEG-TRACE) Urine Glucose (UA) Negative mg/dL (NEG) Urine Ketones (Stick) Negative mg/dL (NEG) Urine Blood Negative (NEG) Urine Nitrite Negative (NEG) Urine Bilirubin Moderate (NEG) Urine Urobilinogen Dipstick 1.0 mg/dL (0.2 mg/dL) Urine Leukocyte Esterase Small (NEG) Urine RBC Occ /HPF (0-2) Urine WBC 1-4 /HPF (0-4) Urine Squamous Epithelial Cells Many /LPF Urine Renal Epithelial Cells Few /LPF Urine Bacteria Few /HPF (0-FEW) Urine Mucus Marked /LPF Sodium Level 136 mmol/L (136-145) Potassium Level 4.4 mmol/L (3.5-5.1) Chloride Level 102 mmol/L (98-107) Carbon Dioxide Level 25 mmol/L (21-32) Anion Gap 9 (6-14) Blood Urea Nitrogen 3 mg/dL (7-20) Creatinine 0.7 mg/dL (0.6-1.0) Estimated GFR (Cockcroft-Gault) 98.9 BUN/Creatinine Ratio 4 (6-20) Glucose Level 89 mg/dL (70-99) Calcium Level 8.6 mg/dL (8.5-10.1) Total Bilirubin 2.1 mg/dL (0.2-1.0) 1.9 mg/dL (0.2-1.0) Aspartate Amino Transf (AST/SGOT) 156 U/L (15-37) 173 U/L (15-37) Alanine Aminotransferase (ALT/SGPT) 115 U/L (14-59) 90 U/L (14-59) Alkaline Phosphatase 146 U/L (46-116) 113 U/L (46-116) Total Protein 6.7 g/dL (6.4-8.2) 5.7 g/dL (6.4-8.2) Albumin 2.1 g/dL (3.4-5.0) 1.7 g/dL (3.4-5.0) Albumin/Globulin Ratio 0.5 (1.0-1.7) Prothrombin Time 13.9 SEC (11.7-14.0) Prothromb Time International Ratio 1.1 (0.8-1.1) Direct Bilirubin 1.3 mg/dL (0.0-0.2) Laboratory Tests Test 09/23/18 08:05 White Blood Count 3.5 x10^3/uL (4.0-11.0) Red Blood Count 3.88 x10^6/uL (3.50-5.40) Hemoglobin 12.9 g/dL (12.0-15.5) Hematocrit 39.3 % (36.0-47.0) Mean Corpuscular Volume 101 fL (79-100) Mean Corpuscular Hemoglobin 33 pg (25-35) Mean Corpuscular Hemoglobin Concent 33 g/dL (31-37) Red Cell Distribution Width 17.9 % (11.5-14.5) Platelet Count 199 x10^3/uL (140-400) Neutrophils (%) (Auto) 53 % (31-73) Lymphocytes (%) (Auto) 31 % (24-48) Monocytes (%) (Auto) 12 % (0-9) Eosinophils (%) (Auto) 3 % (0-3) Basophils (%) (Auto) 1 % (0-3) Neutrophils # (Auto) 1.9 x10^3uL (1.8-7.7) Lymphocytes # (Auto) 1.1 x10^3/uL (1.0-4.8) Monocytes # (Auto) 0.4 x10^3/uL (0.0-1.1) Eosinophils # (Auto) 0.1 x10^3/uL (0.0-0.7) Basophils # (Auto) 0.0 x10^3/uL (0.0-0.2) Prothrombin Time 13.9 SEC (11.7-14.0) Prothromb Time International Ratio 1.1 (0.8-1.1) Total Bilirubin 1.9 mg/dL (0.2-1.0) Direct Bilirubin 1.3 mg/dL (0.0-0.2) Aspartate Amino Transf (AST/SGOT) 173 U/L (15-37) Alanine Aminotransferase (ALT/SGPT) 90 U/L (14-59) Alkaline Phosphatase 113 U/L (46-116) Total Protein 5.7 g/dL (6.4-8.2) Albumin 1.7 g/dL (3.4-5.0) Brief Hospital Course Ms. Burnette is a 28 old female who presented with abdominal pain six days po l /s andrew. CT showed a small subcapsular hematoma. She was admitted for observation and pain control. She was seen in consultation by her PCP Dr Queta Parson. Discharge Information Condition at Discharge: Improved Follow Up: As Needed Disposition/Orders: D/C to Home Scheduled Amoxicillin/Potassium Clav (Augmentin 875-125 Tablet) 1 Each Tablet, 1 TAB PO BID for uti for 4 Days, #8 Prescribed by: QUETA PARSON on 09/18/18 1000 Last Action: Continued on 09/22/181708 by DAVID CLARK Escitalopram Oxalate (Escitalopram Oxalate) 20 Mg Tablet, 1 TAB PO DAILY for depression for 30 Days, #30 Ref 5 Prescribed by: QUETA PARSON on 09/15/18 1320 Last Action: Converted on 09/22/181708 by DAVID CLARK Levothyroxine Sodium (Levothyroxine Sodium) 150 Mcg Tablet, 1 TAB PO DAILY, #30 Ref 5 (Reported) Entered as Reported by: ALEXANDER SELF on 08/14/17 1601 Last Action: Converted on 09/22/181708 by DAVID CLARK Naltrexone Hcl (Naltrexone Hcl) 50 Mg Tablet, 1 TAB PO DAILY for mood for 30 Days, #30 Ref 2 Prescribed by: QUETA PARSON on 09/15/181319 Last Action: Converted on 09/22/181708 by DAVID CLARK Quetiapine Fumarate (Seroquel) 50 Mg Tablet, 1 TAB PO BID for mood for 30 Days, #60 Ref 2 Prescribed by: QUETA PARSON on 09/15/181319 Last Action: Converted on 09/22/181708 by DAVID CLARK Scheduled PRN Oxycodone/Apap 5-325 (Percocet 5-325 Mg Tablet ) 1 Each Tablet, 1 TAB PO PRN Q4HRS PRN for SEVERE PAIN for 5 Days, #10 Prescribed by: QUETA PARSON on 09/18/18 1000 Last Action: HELD on 09/22/181708 by DAVID ROBERTS MD Sep 23, 2018 16:28
--- NOTE | 2018-09-23 17:08 | NUR ---
Discharge Note: JAVON LINARES [address] [place] [address] Discharge instructions and discharge home medications reviewed with Patient and a copy given. All questions have been answered and understanding verbalized. The following instructions and handouts were given: F/U with PCP within one week. Discontinued lines and drains: DELVIN drain, Peripheral IV intact. Patient discharged to Home or Self Care with Family Member via Ambulated
--- NOTE | 2018-09-24 09:48 | PHYS DOC ---
Past Medical History Past Medical History: Other Additional Past Medical Histor: prescription opiod abuse Past Surgical History: Cholecystectomy, Additional Past Surgical Histo: THYROID ABLATION, D&C Alcohol Use: None Drug Use: Opiates Adult General Chief Complaint Chief Complaint: GI PROBLEM HPI HPI Patient is a 28 year old female who presents with increased abdominal pain following gallbladder surgery last week. She states she has had continued drainage from her drain. She denies nausea or vomiting. She feels like there may be redness to the skin around the drain. She denies fever. She states that she has been taking ibuprofen for pain with no relief. Review of Systems Review of Systems Constitutional: Denies fever or chills [] Eyes: Denies change in visual acuity, redness, or eye pain [] HENT: Denies nasal congestion or sore throat [] Respiratory: Denies cough or shortness of breath [] Cardiovascular: No additional information not addressed in HPI [] GI: See HPI : Denies dysuria or hematuria [] Musculoskeletal: Denies back pain or joint pain [] Integument: See HPI Neurologic: Denies headache, focal weakness or sensory changes [] Endocrine: Denies polyuria or polydipsia [] All other systems were reviewed and found to be within normal limits, except as documented in this note. Current Medications Current Medications Current Medications Medications (Trade) Dose Ordered Sig/Brad Start Time Stop Time Status Last Admin Dose Admin Fentanyl Citrate (Fentanyl 2ml Vial) 50 mcg 1X ONCE 09/22/18 12:00 09/22/18 12:01 DC 09/22/18 12:09 50 MCG Info (CONTRAST GIVEN -- Rx MONITORING) 1 each PRN DAILY PRN 09/22/18 10:45 09/23/18 17:11 DC Iohexol (Omnipaque 240 Mg/ml) 30 ml 1X ONCE 09/22/18 10:45 09/22/18 10:46 DC 09/22/18 10:45 30 ML Iohexol (Omnipaque 300 Mg/ml) 75 ml 1X ONCE 09/22/18 10:45 09/22/18 10:46 DC 09/22/18 11:54 75 ML Ondansetron HCl (Zofran) 4 mg 1X ONCE 09/22/18 10:30 09/22/18 10:31 DC 09/22/18 10:43 4 MG Sodium Chloride 1,000 ml @ 1,000 mls/hr 1X ONCE 09/22/18 11:45 09/22/18 12:44 DC 09/22/18 12:11 1,000 MLS/HR Allergies Allergies Allergies Coded Allergies Type Severity Reaction Last Updated Verified No Known Drug Allergies 09/17/18 No Physical Exam Physical Exam Constitutional: Well developed, well nourished, no acute distress, non-toxic appearance. [] HENT: Normocephalic, atraumatic, bilateral external ears normal, oropharynx moist, no oral exudates, nose normal. [] Eyes: PERRLA, EOMI, conjunctiva normal, no discharge. [] Neck: Normal range of motion, no tenderness, supple, no stridor. [] Cardiovascular:Heart rate regular rhythm, no murmur [] Lungs & Thorax: Bilateral breath sounds clear to auscultation [] Abdomen: Bowel sounds normal, soft, tenderness to RUQ, no masses, no pulsatile masses. [] Skin: healing laparoscopic wounds noted with no sign of erythema or purulent drainage, drain is in place with mild erythema but no calor or sign of infection noted Back: No tenderness, no CVA tenderness. [] Extremities: No tenderness, no cyanosis, no clubbing, ROM intact, no edema. [] Neurologic: Alert and oriented X 3, normal motor function, normal sensory function, no focal deficits noted. [] Psychologic: Affect normal, judgement normal, mood normal. [] Current Patient Data Vital Signs Vital Signs Date Time Temp Pulse Resp B/P (MAP) Pulse Ox O2 Delivery O2 Flow Rate FiO2 09/22/18 09:26 98.0 87 18 112/80 (91) 97 Room Air 98.0 Lab Values Laboratory Tests Test 09/22/18 09:55 09/22/18 10:54 09/22/18 10:56 White Blood Count 5.3 x10^3/uL (4.0-11.0) Red Blood Count 4.20 x10^6/uL (3.50-5.40) Hemoglobin 13.9 g/dL (12.0-15.5) Hematocrit 41.6 % (36.0-47.0) Mean Corpuscular Volume 99 fL (79-100) Mean Corpuscular Hemoglobin 33 pg (25-35) Mean Corpuscular Hemoglobin Concent 33 g/dL (31-37) Red Cell Distribution Width 18.2 % (11.5-14.5) H Platelet Count 299 x10^3/uL (140-400) Neutrophils (%) (Auto) 62 % (31-73) Lymphocytes (%) (Auto) 24 % (24-48) Monocytes (%) (Auto) 10 % (0-9) H Eosinophils (%) (Auto) 4 % (0-3) H Basophils (%) (Auto) 1 % (0-3) Neutrophils # (Auto) 3.3 x10^3uL (1.8-7.7) Lymphocytes # (Auto) 1.3 x10^3/uL (1.0-4.8) Monocytes # (Auto) 0.5 x10^3/uL (0.0-1.1) Eosinophils # (Auto) 0.2 x10^3/uL (0.0-0.7) Basophils # (Auto) 0.1 x10^3/uL (0.0-0.2) Lactic Acid Level 2.0 mmol/L (0.4-2.0) POC Urine HCG, Qualitative Hcg negative (Negative) Urine Collection Type Unknown Urine Color [place] Urine Clarity Clear Urine pH 6.5 Urine Specific [place] 1.020 Urine Protein Negative mg/dL (NEG-TRACE) Urine Glucose (UA) Negative mg/dL (NEG) Urine Ketones (Stick) Negative mg/dL (NEG) Urine Blood Negative (NEG) Urine Nitrite Negative (NEG) Urine Bilirubin Moderate (NEG) Urine Urobilinogen Dipstick 1.0 mg/dL (0.2 mg/dL) Urine Leukocyte Esterase Small (NEG) Urine RBC Occ /HPF (0-2) Urine WBC 1-4 /HPF (0-4) Urine Squamous Epithelial Cells Many /LPF Urine Renal Epithelial Cells Few /LPF Urine Bacteria Few /HPF (0-FEW) Urine Mucus Marked /LPF Sodium Level 136 mmol/L (136-145) Potassium Level 4.4 mmol/L (3.5-5.1) Chloride Level 102 mmol/L (98-107) Carbon Dioxide Level 25 mmol/L (21-32) Anion Gap 9 (6-14) Blood Urea Nitrogen 3 mg/dL (7-20) L Creatinine 0.7 mg/dL (0.6-1.0) Estimated GFR (Cockcroft-Gault) 98.9 BUN/Creatinine Ratio 4 (6-20) L Glucose Level 89 mg/dL (70-99) Calcium Level 8.6 mg/dL (8.5-10.1) Total Bilirubin 2.1 mg/dL (0.2-1.0) H Aspartate Amino Transferase (AST) 156 U/L (15-37) H Alanine Aminotransferase (ALT) 115 U/L (14-59) H Alkaline Phosphatase 146 U/L (46-116) H Total Protein 6.7 g/dL (6.4-8.2) Albumin 2.1 g/dL (3.4-5.0) L Albumin/Globulin Ratio 0.5 (1.0-1.7) L Laboratory Tests 09/22/18 09:55 Laboratory Tests 09/22/18 10:56 Microbiology 09/22/18 Blood Culture - Preliminary, Resulted NO GROWTH AFTER 1 DAY 09/22/18 Urine Culture - Final, Complete 09/22/18 Urine Culture Result 1 (CAROLYNN) - Final, Complete EKG EKG [] Radiology/Procedures Radiology/Procedures []PATIENT: JAVON LINARES AACCOUNT: [id number]#: [id number] : 1990 LOCATION: ER AGE: 28 SEX: F EXAM STATUS: REG ER ORD. PHYSICIAN: RADHA URBINA APRN REASON: worsening pain follow surgery for cholecystectomy PROCEDURE: CT ABD PELV W/ORAL&IV CONTRAST CT STUDY OF THE ABDOMEN AND PELVIS WITH CONTRAST Clinical indications: Worsening abdominal pain following surgery for cholecystectomy. COMPARISON: September 15, 2018. TECHNIQUE: After IV infusion of 75 cc of Omnipaque 300, helical CT scanning of the abdomen and pelvis was performed. GI contrast was administered per mouth. PQRS compliance Statement One or more of the following individualized dose reduction techniques were utilized for this study: 1. Automated exposure control 2. Adjustment of the mA and/or kV according to patient size 3. Use of iterative reconstruction technique FINDINGS: Diffuse fatty infiltration of the liver is seen. There is a new finding of a small subcapsular hematoma of the anterior aspect of the medial segment left lobe of the liver. This measures 7 mm in thickness. No liver laceration is evident. The gallbladder is surgically absent. There is a small postoperative fluid collection within the gallbladder fossa measuring 2.9 cm. Surgical drainage catheter is seen within the anterior aspect of the upper abdomen and no fluid collection is seen in this area. No dilatation of the extra hepatic biliary tree is seen. No pancreatic mass or peripancreatic inflammation or pseudocyst is seen. The spleen measures 13.4 cm in length which is at the upper limits of normal. The spleen is homogeneous. No free fluid is seen around the spleen. Both kidneys are normal without hydronephrosis or hydroureter. There is some mild inflammatory change of the right upper quadrant of the abdomen just inferior to the liver and around the hepatic flexure and distal ascending colon and within the right retroperitoneum around the right kidney extending along the right ureter. This most likely represents postoperative edema. No fluid collection or abscess is seen here. There is a small amount of dependent free fluid within the pelvis. No dominant ovarian cyst or mass is seen today. No uterine mass or fibroid is seen. The urinary bladder is not abnormally distended. Urinary bladder wall is smooth. No focal aneurysmal dilatation of the abdominal aorta is seen. No adrenal mass is evident. No enlarged abdominal or pelvic lymphadenopathy is seen. Sigmoid diverticulosis is seen. The appendix is normal. The terminal ileum is unremarkable. No obstructive bowel pattern is seen. No free intraperitoneal air is seen. No lung base consolidation is evident. No lytic process is seen. There are healing subacute fractures of the anterolateral costal cartilage of the lower rib cage on both sides. This was seen previously. IMPRESSION: Since the previous study, the patient had a cholecystectomy. There is a small postoperative fluid collection within the gallbladder fossa. There is mild soft tissue inflammation of the right upper quadrant and the right retroperitoneum most likely postoperative in nature. Small amount of postoperative dependent free fluid is seen within the pelvis. No discrete abscess is evident otherwise. No bowel obstruction or free air is seen. There is new finding of a small subcapsular hematoma of the anterior aspect of the medial segment of the left lobe of the liver. No liver laceration is seen. Electronically signed by: Irasema Mcfralane MD (09/22/2018 12:17 PM) [facility] [place] [id number] DICTATED and SIGNED BY: IRASEMA MCFARLANE MD DATE: 09/22/18 1201 Course & Med Decision Making Course & Med Decision Making Pertinent Labs and Imaging studies reviewed. (See chart for details) []Dr. Mayo was consulted in the care of this patient. She will be admitted for further evaluation to Dr. Mayo's service. Dragon Disclaimer Dragon Disclaimer This electronic medical record was generated, in whole or in part, using a voice recognition dictation system. Departure Departure Impression: Primary Impression: Subcapsular hematoma of liver Disposition: ADMITTED INPATIENT Condition: GOOD Referrals: JANUARY RIZZO MD (Family) Patient Instructions: Dressing Change, [id number], Cholecystostomy RADHA URBINA APRN Sep 24, 2018 09:48
== END 2018-09-23 17:05 | disposition home or self-care (01) ==
LOC: ER 08:52 → 6 SOUTH 13:14
PROVIDERS: ADMIT Surgery; ATTEND Surgery
DX: K76.89 Other specified diseases of liver (principal); I10 Essential (primary) hypertension; F41.9 Anxiety disorder, unspecified; K76.0 Fatty (change of) liver, not elsewhere classified; F32.9 Major depressive disorder, single episode, unspecified; E03.9 Hypothyroidism, unspecified; E66.9 Obesity, unspecified; N39.0 Urinary tract infection, site not specified; Z90.49 Acquired absence of other specified parts of digestive tract; Z82.49 Family history of ischemic heart disease and other diseases of the circulatory system
CPT/HCPCS: 36415; 74177; 80053; 80076; 81001; 81025; 83605; 85025; 85610; 87040; 87086; 96374; 96375; 96376; 99284; G0378; J1170; J2270; J2405; J3010; J7030; Q9966; Q9967; G0379

== ENCOUNTER 2018-11-05 12:11 | Emergency (ER) | payer OTHER ==
[~2018-11-05] VITALS: Ht 167.6 cm; Wt 90.7 kg
[~2018-11-05 12:11] MED LIST changes: +NORG1TAB34 PO; -NORG1TAB70 PO
[2018-11-05 12:40] VITALS: BP 131/91
[2018-11-05] MEDS ORDERED: predniSONE 10 MG TABLET PO ONE (13:30)
--- NOTE | 2018-11-05 13:38 | PHYS DOC ---
Past Medical History Past Medical History: Anxiety, Depression, Hypothyroid, Other Additional Past Medical Histor: prescription opiod abuse Past Surgical History: Cholecystectomy, Additional Past Surgical Histo: THYROID ABLATION, D&C Alcohol Use: Heavy Drug Use: Opiates Adult General Chief Complaint Chief Complaint: LOWER EXT PAIN HPI HPI 28-year-old female presents to ER for complaints of right knee pain since yesterday. She reports she thinks she may have twisted her knee which has caused swelling and pain. She reports she has been ambulatory but does have increased pain with weightbearing. She denies any falls. She denies any previous history of right knee issues. She reports she has been taking Aleve and ibuprofen for the pain with minimal relief in symptoms. Review of Systems Review of Systems Constitutional: Denies fever or chills [] Respiratory: Denies cough or shortness of breath [] Cardiovascular: No additional information not addressed in HPI [] Musculoskeletal: Denies back pain. Reports rt knee pain and swelling Integument: Denies rash or skin lesions [] Neurologic: Denies focal weakness or sensory changes [] All other systems were reviewed and found to be within normal limits, except as documented in this note. Current Medications Current Medications Current Medications Medications (Trade) Dose Ordered Sig/Brad Start Time Stop Time Status Last Admin Dose Admin Lidocaine (Lidoderm) 1 patch DAILY 11/05/18 13:57 11/05/18 15:00 DC 11/05/18 14:00 1 PATCH Prednisone (Prednisone) 50 mg 1X ONCE 11/05/18 13:30 11/05/18 13:32 DC 11/05/18 14:00 50 MG Allergies Allergies Allergies Coded Allergies Type Severity Reaction Last Updated Verified No Known Drug Allergies 09/17/18 No Physical Exam Physical Exam Constitutional: Well developed, well nourished, no acute distress, non-toxic appearance. [] HENT: Normocephalic, atraumatic, oropharynx moist, nose normal. [] Eyes: Pupils equal, conjunctiva normal, no discharge. [] Neck: Normal range of motion, no tenderness, supple, no stridor. [] Cardiovascular: Heart rate regular rhythm Lungs & Thorax: Resp. equal/nonlabored Skin: Warm, dry Back: No tenderness, full ROM Extremities: Pelvis stable/nontender. No cyanosis, no clubbing, ROM intact lt LE- rt LE with decreased ROM of knee- tender anterior knee with no palp. deformity, anterior swelling without skin discoloration. No tenderness lt ankle/foot with full ROM. 2+ bilat. dorsalis pedis/posterior tibial. Neurologic: Alert and oriented X 3, normal motor function, normal sensory function, no focal deficits noted. [] Psychologic: Affect normal, judgement normal, mood normal. [] Current Patient Data Vital Signs Vital Signs Date Time Temp Pulse Resp B/P (MAP) Pulse Ox O2 Delivery O2 Flow Rate FiO2 11/05/18 12:40 98.3 87 16 131/91 (104) 99 Room Air 98.3 EKG EKG [] Radiology/Procedures Radiology/Procedures PROCEDURE: KNEE RIGHT 3V Right knee, 3 views, 11/05/2018: HISTORY: Right knee pain No fracture or dislocation is identified. No significant arthritic change is seen. No large joint effusion is evident. IMPRESSION: No acute right knee abnormality is detected. Electronically signed by: Jd Murphy MD (11/05/2018 1:51 PM) [facility] DICTATED and SIGNED BY: JD MURPHY MD DATE: 11/05/18 2314 Course & Med Decision Making Course & Med Decision Making Pertinent Imaging studies reviewed. (See chart for details) Pt was evaluated in the ER for c/o rt knee pain after twisting type injury yest. Xray was obtained with no acute findings. Pt had lidoderm patch applied to rt knee and provided with prednisone PO with reports of improved pain. Xray results discussed with pt along with plans for sarai wrap/knee immobilizer and crutches. Advised pt on need for f/u with orthopedics- will provide referral info on d/c paperwork. Education provided on s&s to return to ER for and d/c instructions were discussed. Pt has Rx'd pain meds at home. Will provide Rx for prednisone. Prior to and following wrap/immobilizer application pt remained PMS intact rt lower extremity. Dragon Disclaimer Dragon Disclaimer This electronic medical record was generated, in whole or in part, using a voice recognition dictation system. Departure Departure Impression: Primary Impression: Knee pain, right Disposition: 01 HOME, SELF-CARE Condition: STABLE Referrals: JANUARY RIZZO MD (PCP) GEE MORALES II, MD Patient Instructions: Crutch Use, Knee Immobilization, Knee Pain, Knee Wraps (Elastic Bandage) and RICE Additional Instructions: Follow-up with orthopedics for reevaluation and further care. Tylenol and/or ibuprofen as directed on container for pain control. You can reapply Lidoderm patch every 12 hours as needed for pain and then remove the patch after the 12 hour period. Ice pack to affected area every 3-4 hours for 20-30 minutes at a time avoiding direct ice contact with skin. Scripts Prednisone (PREDNISONE) 50 Mg Tablet 1 TAB PO DAILY, #4 TAB 0 Refills Start on 11/06/18 Prov: UHNTER SEN APRN 11/05/18 HUNTER SEN APRN Nov 05, 2018 13:38
--- NOTE | 2018-11-05 13:54 | RAD ---
Right knee, 3 views, 11/05/2018: HISTORY: Right knee pain No fracture or dislocation is identified. No significant arthritic change is seen. No large joint effusion is evident. IMPRESSION: No acute right knee abnormality is detected. Electronically signed by: Jd Murphy MD (11/05/2018 1:51 PM) [facility]
[2018-11-05] MEDS ORDERED: LIDOCAINE (700MG/PATCH) PATCH. TD SCH (13:57)
[2018-11-05] MEDS ORDERED: PRED50TA PO (14:50)
== END 2018-11-05 14:53 | disposition home or self-care (01) ==
LOC: ER 12:11
DX: M25.561 Pain in right knee (principal); E03.9 Hypothyroidism, unspecified; F10.20 Alcohol dependence, uncomplicated; Y90.9 Presence of alcohol in blood, level not specified; X50.9XXA Other and unspecified overexertion or strenuous movements or postures, initial encounter; Y93.89 Activity, other specified; Y92.89 Other specified places as the place of occurrence of the external cause; Y99.8 Other external cause status
CPT/HCPCS: 73562; 99283; J7512

== ENCOUNTER 2019-01-26 17:15 | Emergency (ER) | payer OTHER ==
[~2019-01-26 17:15] MED LIST changes: +PRED50TA PO
== END 2019-01-26 17:18 | disposition left against medical advice (07) ==
LOC: ER 17:15
DX: Z53.21 Procedure and treatment not carried out due to patient leaving prior to being seen by health care provider (principal)

== ENCOUNTER 2019-11-26 06:47 | Emergency (ER) | payer SELFPAY ==
[~2019-11-26] VITALS: Ht 170.2 cm; Wt 91.0 kg
[~2019-11-26 06:47] MED LIST changes: -NORG1TAB34 PO; +NORG1TAB70 PO
[2019-11-26] MEDS ORDERED: IV NORMAL SALINE 1000ML BAG 1,000 ML IV ONE (07:45)
[2019-11-26 08:02] LABS: BILIRUBIN,URINE NEGATIVE (NEG); CLARITY,URINE CLEAR; COLOR,URINE YELLOW; NITRITE,URINE NEGATIVE (NEG); PROTEIN,URINE NEGATIVE (NEG-TRACE); UROBILINOGEN,URINE 0.2 mg/dL (0.2 mg/dL)
--- NOTE | 2019-11-26 08:04 | PHYS DOC ---
Past Medical History Past Medical History: Anxiety, Depression, Hypertension, Hypothyroid, Other Additional Past Medical Histor: prescription opiod abuse Past Surgical History: Cholecystectomy, Additional Past Surgical Histo: THYROID ABLATION, D&C Smoking Status: Current Every Day Smoker Alcohol Use: Occasionally Drug Use: Opiates General Adult EDM: Chief Complaint: PSYCH EVALUATION HPI: HPI: Patient is a 29 year old female with history of hypertension, hypothyroidism, depression anxiety, prescription opiate abuse who presents with complaining of anxiety. Patient was dropped off by her boyfriend because of suicidal ideation but patient denies suicidal ideation and states she is tired and under stress because of not having any money and resources at this time of crisis. Patient states she had a loss of whiskey yesterday but usually does not drink alcohol. Patient admitted to smoke marijuana and denies using other drugs. Patient said because of financial problems she was not able to get her anxiety and depression or blood pressure medication. Patient states she was admitted to the hospital with drug overdose with pills 1 year ago. Patient is a poor historian and does not want to give history. Review of Systems: Review of Systems: Constitutional: Denies fever or chills. [] Eyes: Denies change in visual acuity. [] HENT: Denies nasal congestion or sore throat. [] Respiratory: Denies cough or shortness of breath. [] Cardiovascular: Denies chest pain or edema. [] GI: Denies abdominal pain, nausea, vomiting, bloody stools or diarrhea. [] : Denies dysuria. [] Musculoskeletal: Denies back pain or joint pain. [] Integument: Denies rash. [] Neurologic: Denies headache, focal weakness or sensory changes. [] Endocrine: Denies polyuria or polydipsia. [] Lymphatic: Denies swollen glands. [] Psychiatric: Denies depression or anxiety. [] Heart Score: Risk Factors: Risk Factors: DM, Current or recent (<one month) smoker, HTN, HLP, family history of CAD, obesity. Risk Scores: Score 0 - 3: 2.5% MACE over next 6 weeks - Discharge Home Score 4 - 6: 20.3% MACE over next 6 weeks - Admit for Clinical Observation Score 7 - 10: 72.7% MACE over next 6 weeks - Early Invasive Strategies Allergies: Allergies: Allergies Coded Allergies Type Severity Reaction Last Updated Verified No Known Drug Allergies 09/17/18 No Physical Exam: PE: Constitutional: Well nourished, mild distress, non-toxic appearance, smell of alcohol on breath. [] HENT: Normocephalic, atraumatic, good gag reflex Neck: Normal range of motion, no tenderness, supple, no stridor. [] Cardiovascular:Heart rate regular rhythm, no murmur [] Lungs & Thorax: Bilateral breath sounds clear to auscultation [] Abdomen: Bowel sounds normal, soft, no tenderness, no masses, no pulsatile masses. [] Skin: Warm, dry, no erythema, no rash. [] Back: No tenderness, no CVA tenderness. [] Extremities: No tenderness, no cyanosis, no clubbing, ROM intact, no edema. [] Neurologic: Alert and oriented X 3, normal motor function, normal sensory function, no focal deficits noted. [] Psychologic: Affect anxious, mood normal. [] Current Patient Data: Vital Signs: Vital Signs Date Time Temp Pulse Resp B/P (MAP) Pulse Ox O2 Delivery O2 Flow Rate FiO2 11/26/19 07:05 97.9 92 18 97/60 (72) 99 Room Air 97.9 EKG: EKG: [] Radiology/Procedures: Radiology/Procedures: [] Course & Med Decision Making: Course & Med Decision Making Pertinent Labs reviewed. (See chart for details) Evaluation of patient inertial 29-year-old female patient with complaining of anxiety and depression and concern for possible suicidal and homicidal ideation. Patient denies suicidal homicidal ideation her sedation. Patient had blood alcohol of 312 and treated with IV fluids with improvement of her condition. Patient was evaluated by PAT team staff and did not have criteria for inpatient treatment. Patient used to follow-up with [facility] and was advised to follow-up with them again. Patient ambulated without problem. I've spoken with the patient and/or caregivers. I've explained the patient's condition, diagnosis and treatment plan based on information available to me at this time. I've answered the patient's and/or caregivers questions and addressed any concerns. The patient and/or caregivers have a good understanding the patient's diagnosis, condition and treatment plan as can be expected at this point. Vital signs have been stabilized. The patient's condition is stable for discharge from the emergency department. The patient will pursue further outpatient evaluation with her primary care provider or other designated consulting physician as outlined in the discharge instructions. Patient and/or caregivers are agreeable to this plan of care and follow-up instructions have been explained in detail. The patient and/or caregivers have received these instructions in written format and expressed understanding of these discharge instructions. The patient and her caregivers are aware that if any significant change in condition or worsening of symptoms should prompt him to immediately return to this of the closest emergency department. If an emergent department is not readily available I would encourage him to call 911. Dragon Disclaimer: Dragon Disclaimer: This electronic medical record was generated, in whole or in part, using a voice recognition dictation system. Departure Departure Impression: Primary Impression: Alcohol abuse Additional Impression: Depression Qualified Codes: F32.9 - Major depressive disorder, single episode, unspecified Disposition: HOME, SELF-CARE (At 0 [phone]) Condition: IMPROVED Referrals: JANUARY RIZZO MD (PCP) Patient Instructions: Alcohol Problems, Depression, Adult, Suicidal Feelings, How to Help Yourself Additional Instructions: Drink plenty of liquids Follow-up with your primary care physician in 3-5 days Return to ER if not getting better Follow-up with [facility] health clinic in 2-3 Thank you for visiting [facility]. We appreciate you trusting us with your care. If any additional problems come up don't hesitate to return to visit us. Please follow up with your primary care provider so they can plan additional care if needed and know about the problem that you had. If symptoms worsen come back to the Emergency Department. Any concerning symptoms that start such as chest pain, shortness of air, weakness or numbness on one side of the body, running high fevers or any other concerning symptoms return to the ER. JOSE LPOEZ MD Nov 26, 2019 08:04
[2019-11-26 08:05] LABS: BASO # 0.2 x10^3/uL (0.0-0.2); BASO % 2 % (0-3); EOS # 0.3 x10^3/uL (0.0-0.7); EOS % 4 % (0-3); HEMATOCRIT 43.2 % (36.0-47.0); HEMOGLOBIN 14.7 g/dL (12.0-15.5); LYMPH # 2.6 x10^3/uL (1.0-4.8); LYMPH % 31 % (24-48); MEAN CORPUSCULAR HEMOGLOBIN 32 pg (25-35); MEAN CORPUSCULAR HGB CONC 34 g/dL (31-37); MEAN CORPUSCULAR VOLUME 93 fL (79-100); MONO # 0.3 x10^3/uL (0.0-1.1); MONO % 4 % (0-9); NEUT % 59 % (31-73); PLATELET COUNT 299 x10^3/uL (140-400); RED BLOOD COUNT 4.65 x10^6/uL (3.50-5.40); RED CELL DISTRIBUTION WIDTH 14.3 % (11.5-14.5); WHITE BLOOD COUNT 8.4 x10^3/uL (4.0-11.0)
[2019-11-26 08:06] LABS: BACTERIA,URINE MANY /HPF (0-FEW)
[2019-11-26 08:13] LABS: ANION GAP 12 (6-14); BLOOD UREA NITROGEN 5 mg/dL (7-20); CALCIUM 8.7 mg/dL (8.5-10.1); CARBON DIOXIDE 24 mmol/L (21-32); CHLORIDE 108 mmol/L (98-107); CREATININE 0.9 mg/dL (0.6-1.0); GFR 73.5; GLUCOSE 87 mg/dL (70-99); POTASSIUM 3.6 mmol/L (3.5-5.1); SODIUM 144 mmol/L (136-145)
[2019-11-26 08:15] LABS: AMPHETAMINE/METHAMPHETAMINE NEG (NEG); BARBITURATES NEG (NEG); BENZODIAZEPINES NEG (NEG); CANNABINOIDS NEG (NEG); COCAINE NEG (NEG); METHADONE NEG (NEG); OPIATES NEG (NEG); PHENCYCLIDINE NEG (NEG)
[2019-11-26 08:19] LABS: ALBUMIN 3.5 g/dL (3.4-5.0); ALK PHOS 85 U/L (46-116); ALT (SGPT) 19 U/L (14-59); AST (SGOT) 24 U/L (15-37); DIRECT BILIRUBIN < 0.1 mg/dL (0.0-0.2); TOTAL BILIRUBIN 0.2 mg/dL (0.2-1.0); TOTAL PROTEIN 7.6 g/dL (6.4-8.2)
[2019-11-26 08:21] LABS: SALIC < 2.8 mg/dL (2.8-20.0)
[2019-11-26 08:22] LABS: ACETAMIN < 2 mcg/ml (10-30)
[2019-11-26] MEDS ORDERED: MULTIVIT INFUSN,ADULT 4,VIT K 10 ML, THIAMINE INJ 100 MG, FOLIC ACID INJ 1 MG in IV NOR... IV ONE (09:30)
[2019-11-26 10:27] VITALS: BP 108/75
== END 2019-11-26 12:15 | disposition home or self-care (01) ==
LOC: ER 06:47
DX: F32.9 Major depressive disorder, single episode, unspecified (principal); F10.20 Alcohol dependence, uncomplicated; Y90.8 Blood alcohol level of 240 mg/100 ml or more; F41.9 Anxiety disorder, unspecified; I10 Essential (primary) hypertension; E03.9 Hypothyroidism, unspecified; F17.200 Nicotine dependence, unspecified, uncomplicated; F11.10 Opioid abuse, uncomplicated; Z90.49 Acquired absence of other specified parts of digestive tract
CPT/HCPCS: 36415; 80048; 80076; 80307; 80329; 81001; 81025; 85025; 87086; 96365; 99285; G0480; J3411; J3490; J7030